=== PATIENT | female | born 1950 | race Caucasian/White ===

== ENCOUNTER → 2023-05-01 10:23 | Outpatient (REF) | payer MEDICARE, SELFPAY ==
[2023-05-01 11:35] LABS: % Basophils 0.6 % (0-2); % Eosinophils 4.3 % (0-6); % Immature Granulocytes 0.3 % (0-0.5); % Lymphocytes 34.1 % (20.5-51.1); % Monocytes 7.6 % (1.7-9.3); % Neutrophils 53.1 % (42.2-75.2); Absolute Basophils 0.1 10^3/uL (0-0.2); Absolute Eosinophils 0.4 10^3/uL (0-0.7); Absolute Lymphocytes 3.4 10^3/uL (1.2-3.4); Absolute Monocytes 0.8 10^3/uL (0.1-0.6); Absolute Neutrophils 5.3 10^3/uL (1.4-6.5); Hematocrit 41.3 % (37.0-47.0); Hemoglobin 13.3 g/dL (12.0-16.0); Mean Corp Hgb Conc. 32.2 g/dL (33.0-37.0); Mean Corpuscular Hgb 27.2 pg (27.0-31.0); Mean Corpuscular Volume 84.5 fL (81.0-99.0); Mean Platelet Volume 9.6 fL (7.4-10.4); Nucleated Red Blood Cells % 0 %; Platelet Count 326 10^3/uL (130-400); Red Blood Cell Count 4.89 10^6/uL (4.20-5.40); Red Cell Dist. Width 14.2 % (11.5-14.5)
[2023-05-01 12:21] LABS: TSH Reflex To Free T4 0.84 uIU/ml (0.47-4.68)
[2023-05-01 12:29] LABS: Glycohemoglobin (HgbA1c) 5.8 % (4.0-5.6)
[2023-05-01 12:39] LABS: ALT (SGPT) 15 U/L (0-35); AST (SGOT) 18 U/L (14-36); Albumin 4.1 g/dl (3.5-5.0); Alkaline Phosphatase 106 U/L (38-126); Blood Urea Nitrogen 17 mg/dl (7-17); Calcium 9.7 mg/dl (8.4-10.2); Carbon Dioxide 24 mmol/L (22-30); Chloride 105 mmol/L (98-107); Glucose 83 mg/dl (70-99); HDL Cholesterol 46 mg/dl; LDL Cholesterol, Calculated 63 mg/dl; Potassium 4.8 mmol/L (3.5-5.1); Sodium 137 mmol/L (135-145); Total Bilirubin 0.5 mg/dl (0.2-1.3); Total Cholesterol 153 mg/dl (50-199); Total Protein 6.5 g/dl (6.3-8.2); Triglyceride 221 mg/dl (10-149); Very Low Density Lipoprotein 44 mg/dl (0-30); eGFR > 60.00
[2023-05-01 15:27] LABS: Vitamin B12 304 pg/ml (239-931)
[2023-05-02 11:07] LABS: Intact PTH 71.9 pg/ml (13.6-85.8)
== END ==
LOC: REG 10:23
PROVIDERS: ATTENDING PHYSICIAN Student in an Organized Health Care Education/Training Program
DX: Z00.00 Encounter for general adult medical examination without abnormal findings (principal); E66.01 Morbid (severe) obesity due to excess calories; Z85.3 Personal history of malignant neoplasm of breast; R73.03 Prediabetes; M81.0 Age-related osteoporosis without current pathological fracture; E78.2 Mixed hyperlipidemia; Z98.890 Other specified postprocedural states
CPT/HCPCS: 36415; 80053; 80061; 82570; 82607; 83036; 83970; 84443; 85025

== ENCOUNTER 2023-05-22 17:01 | Observation (INO) | payer MEDICARE, SELFPAY ==
[2023-05-22 13:11] VITALS: BP 139/88
[2023-05-22] MEDS: TORADOL 30 MG IM (14:17)
[2023-05-22 15:20] LABS: % Basophils 0.4 % (0-2); % Immature Granulocytes 0.6 % (0-0.5); % Lymphocytes 32.4 % (20.5-51.1); % Neutrophils 57.6 % (42.2-75.2); Absolute Basophils 0.1 10^3/uL (0-0.2); Absolute Eosinophils 0.4 10^3/uL (0-0.7); Absolute Immature Granulocytes 0.1 10^3/uL (0-0.05); Absolute Lymphocytes 4.5 10^3/uL (1.2-3.4); Absolute Monocytes 0.8 10^3/uL (0.1-0.6); Absolute Neutrophils 7.9 10^3/uL (1.4-6.5); Hematocrit 44.6 % (37.0-47.0); Hemoglobin 14.4 g/dL (12.0-16.0); Mean Corp Hgb Conc. 32.3 g/dL (33.0-37.0); Mean Corpuscular Hgb 27.4 pg (27.0-31.0); Mean Corpuscular Volume 84.8 fL (81.0-99.0); Mean Platelet Volume 9.6 fL (7.4-10.4); Nucleated Red Blood Cells % 0 %; Platelet Count 319 10^3/uL (130-400); Red Blood Cell Count 5.26 10^6/uL (4.20-5.40); Red Cell Dist. Width 14.2 % (11.5-14.5); White Blood Cell Count 13.8 10^3/uL (4.8-10.8)
[2023-05-22 15:38] LABS: ALT (SGPT) 16 U/L (0-35); AST (SGOT) 21 U/L (14-36); Albumin 4.4 g/dl (3.5-5.0); Alkaline Phosphatase 118 U/L (38-126); Blood Urea Nitrogen 16 mg/dl (7-17); Calcium 10.3 mg/dl (8.4-10.2); Carbon Dioxide 26 mmol/L (22-30); Chloride 103 mmol/L (98-107); Glucose 86 mg/dl (70-99); Potassium 4.7 mmol/L (3.5-5.1); Sodium 136 mmol/L (135-145); Total Bilirubin 0.6 mg/dl (0.2-1.3); Total Protein 7.3 g/dl (6.3-8.2); eGFR > 60.00
[2023-05-22] MEDS: ULTRAM 50 MG PO (15:53)
[2023-05-22] MEDS: TYLENOL 1000 MG PO (15:54)
--- NOTE | 2023-05-22 16:02 | ED.GENMED ---
History of Present Illness
General
Chief Complaint: Musculo-Skeletal Complaint
Time Seen by Provider: 05/22/23 13:22
Travel History
Have you had any contact with someone who has COVID-19?: No
Do you have any symptoms of coronavirus? Fever > 100 degrees, chills, cough, shortness of breath, sore throat, loss of taste or smell, muscle aches, or headache?: No
History of Present Illness
History of Present Illness:
72-year-old female with history of hypertension, lch-pfonmih-upztubkvy diabetes, and GERD presents the emergency department for evaluation of severe left knee pain after physical therapy yesterday. She has known severe arthritis and has been
advised by her orthopedist that she should undergo a knee replacement. Did receive a intra-articular cortisone injection last month with some improvement. States pain was quite severe during PT yesterday and today she has not been able to bear
weight. She takes Tylenol and ibuprofen intermittently for pain. Typically utilizes a walker but cannot stand even with this
Review of Systems
Review of Systems
Allergies reviewed?: Yes
All Other Systems: ROS reviewed and negative except as documented in HPI and ROS
Phy Exam
Physical Exam
Physical Exam:
GEN: Well appearing, NAD, WDWN
HEENT: Oral mucosa moist, no scleral icterus
Cardiac: Regular rate
Lung: No respiratory distress, no tachypnea
MSK: Severe swelling and valgus deformity of the left knee, extension is limited to 15 degrees secondary to pain, flexion is normal. No obvious erythema or open wounds
Skin: Good color, no pallor or jaundice, no rashes
Neuro: AO x3, moves all extremities freely
Psych: Calm, cooperative
Course
Orders/Labs/Results
Orders:
Orders
05/22/23 13:15
CR Knee - Left 4 Or More View* Urgent
Comment:
Reason For Exam: pain
05/22/23 14:08
Ketorolac [Toradol] 30 mg IM NOW STA
Pt Eval And Treat Urgent
Activity Level: As Tolerated
05/22/23 15:08
Complete Blood Count/With Diff Urgent
Comprehensive Metabolic Panel Urgent
05/22/23 15:48
Acetaminophen [Tylenol] 1,000 mg PO NOW STA
Tramadol HCl [Ultram] 50 mg PO NOW STA
05/22/23 16:18
Admit/Transfer Patient As Directed
Co-Sign Provider:
Level of Care: Observation services
Assign to:: Medical/Surgical
Physician / Group: nanette
Diagnosis: osteoarthritis
05/22/23 16:19
Code Status As Directed
Resuscitation Status: Do not resuscitate
Reached after discussion with pt or family/Healthcare POA: Yes
DNR Bracelet Application ONCE
Abnormal Lab Results
05/22/23
15:08
WBC 13.8 H 10^3/uL
(4.8-10.8)
MCHC 32.3 L g/dL
(33.0-37.0)
Abs Immat Gran (auto) 0.1 H 10^3/uL
(0-0.05)
Absolute Neuts (auto) 7.9 H 10^3/uL
(1.4-6.5)
Absolute Lymphs (auto) 4.5 H 10^3/uL
(1.2-3.4)
Absolute Monos (auto) 0.8 H 10^3/uL
(0.1-0.6)
Immature Gran % 0.6 H %
(0-0.5)
Creatinine 0.5 L mg/dL
(0.6-1.0)
Calcium 10.3 H mg/dl
(8.4-10.2)
05/22/23 15:08
05/22/23 15:08
Vital Signs
Initial and Last Documented VS:
Initial Vital Signs
Pulse Resp BP Pulse Ox
77 20 139/88 98
05/22/23 13:11 05/22/23 13:11 05/22/23 13:11 05/22/23 13:11
Last Documented Vital Signs
Pulse Resp BP Pulse Ox
77 20 139/88 98
05/22/23 13:11 05/22/23 13:11 05/22/23 13:11 05/22/23 13:11
MDM/Problems Addressed
MDM/Problems Addressed:
X-rays left knee independently interpreted by me show no evidence for acute osseous abnormality, there is severe degenerative change throughout all 3 compartments. Even with anti-inflammatory ministration the patient is not able to tolerate the
pain and ambulate under her own power. I am hesitant to discharge her on a course of opioids given that she lives alone, will admit for rehab considerations and pain control
*Critical Care Note
Total Time (30-74mins, 75-104mins- exclusive of procedures): Not Applicable
ED Attending Note
-
Portions of this chart may have been created with voice recognition software.� Occasional wrong word or��sound alike� substitutions may have occurred due to the inherent limitations of voice recognition software.
Discharge Plan
Departure
Patient Disposition: Admit
Date of Disposition: 05/22/23
Time of Disposition: 16:02
Admit to: Med/Surg
Presentation/result/management discussed w/ accepting MD/DO: Hospitalist
Discharge Problem:
Arthritis of knee, left, Ambulatory dysfunction
Interventions
Interventions:
*Risk Screen - Suicide Last Done: 05/22/23 13:11
*General Assessment Last Done: 05/22/23 13:11
*Neglect/Abuse Screening Last Done: 05/22/23 13:11
ED- Fall Risk Assessment Last Done: 05/22/23 14:24
*ED COVID-19 Vaccine History Last Done: 05/22/23 14:20
ED-Musculoskeletal Assessment Last Done: 05/22/23 14:46
--- NOTE | 2023-05-22 16:21 | HPS.HSE ---
Family Physician
-
Family Physician: Gifty Layne DO
Chief Complaint
-
severe knee pain
History of Present Illness
72-year-old female past medical history of osteoarthritis, osteoporosis, hypertension, hyperlipidemia, obesity, breast cancer, prediabetes, overactive bladder, anxiety/depression presenting with severe left knee pain after attending physical therapy
yesterday and performing extension exercises with her legs. Pain started this morning and is worse than her chronic left knee pain. Pain is primarily on the anterior part of the knee as well as posterior knee with radiation above the knee and
below the knee. She was unable to bear weight and stand today.
Patient has history of arthritis and was seeing for evaluation for knee replacement and he recommended physical therapy which she attended yesterday. She normally only takes Tylenol for pain
Patient with alcohol occasionally. She denies smoking.
Medical History
Past Medical History
Past Medical History: Reports Other (osteoarthritis, osteoporosis, hypertension, hyperlipidemia, obesity, breast cancer, prediabetes, overactive bladder, anxiety/depression)
Past Surgical History: Reports Other (Carpal tunnel surgery right hand, umbilical hernia repair, right knee arthroscopy, parathyroidectomy, thyroid surgery, lumpectomy,)
Social History
Tobacco: Non-smoker
Alcohol: Occasional
Drug: None
Family History
Family History: Not pertinent
Allergies / Home Medications
Allergies reflects when Allergies were last updated in [employer].
Home Medications with original date entered in [employer]
Allergy/Medication List:
Allergies
Allergy/AdvReac Type Severity Reaction Status Date / Time
amoxicillin Allergy Unknown Verified 05/22/23 13:11
Cephalosporins Allergy Unknown Verified 05/22/23 13:11
Penicillins Allergy Unknown Verified 05/22/23 13:11
Home Medications
acetaminophen 650 mg tablet,extended release 1,300 mg PO BID 05/22/23
alirocumab 75 mg/mL subcutaneous pen injector (Praluent Pen) 75 mg SC Q2W 05/22/23
cholecalciferol (vitamin D3) 25 mcg (1,000 unit) tablet (Vitamin D3) 25 mcg PO DAILY 05/22/23
ezetimibe 10 mg tablet 10 mg PO HS 05/22/23
ibuprofen 200 mg tablet 400 mg PO NOON 05/22/23
letrozole 2.5 mg tablet 2.5 mg PO HS 05/22/23
losartan 50 mg tablet 50 mg PO HS 05/22/23
omeprazole 20 mg capsule,delayed release 20 mg PO DAILY 05/22/23
sertraline 50 mg tablet 50 mg PO HS 05/22/23
vibegron 75 mg tablet (Gemtesa) 75 mg PO NOON 05/22/23
Review of Systems
-
History Source: Patient
A 12 point ROS was completed and negative except as noted: Yes
Constitutional: Reports No Symptoms
EENT: Reports No Symptoms
Respiratory: Reports No Symptoms
Cardiac: Reports No Symptoms
Abdomen/GI: Reports No Symptoms
: Reports No Symptoms
Musculoskeletal: Reports See HPI
Skin: Reports No Symptoms
Neurological: Reports No Symptoms
Endocrine: Reports No Symptoms
Hematologic/Lymphatic: Reports No Symptoms
Psych: Reports No Symptoms
Physical Exam
Vital Signs
Vital Signs
Pulse Resp BP Pulse Ox
77 20 139/88 98
05/22/23 13:11 05/22/23 13:11 05/22/23 13:11 05/22/23 13:11
Physical Exam
General: Well Developed, Well Nourished and No Apparent Distress
HEENT: NormoCephalic, Moist mucous membranes and Atraumatic
Respiratory: Clear
Cardiac: S1/S2 and Regular Rhythm; No Murmur or Rub
GI: Soft, Non Tender, Non Distended and Normal Bowel Sounds; No Organomegaly
Rectal: Deferred by Provider
Musculoskeletal: No Clubbing, No Cyanosis, No Edema and Other (left knee swelling, anterior and posterior tenderness )
Skin: No Rash
Neuro: Nonfocal/grossly intact
Laboratory Results
-
05/22/23 15:08
05/22/23 15:08
Laboratory Results
Total Bilirubin 0.6 mg/dl (0.2-1.3) 05/22/23 15:08
AST 21 U/L (14-36) 05/22/23 15:08
ALT 16 U/L (0-35) 05/22/23 15:08
Alkaline Phosphatase 118 U/L (38-126) 05/22/23 15:08
Data Reviewed
-
Lab Data: Labs Reviewed by me
Old Records: Reviewed
Impression/Plan
-
IMPRESSION:
PLAN:
# Severe left knee pain secondary to arthritis, possible meniscal tear
-Patient has tenderness over the lateral joint line and pain with extension of the knee concerning for meniscal tear
-Knee x-ray shows small suprapatellar joint effusion, moderate degenerative changes, small osteochondroma of the distal femur
-Check MRI of knee
-Continue Tylenol, ibuprofen, tramadol
-PT/OT
Osteoporosis
Essential hypertension
-Continue losartan
Hyperlipidemia
-Continue Zetia
Obesity
History of breast cancer
-Continue letrozole
Prediabetes
Overactive bladder
-Continue Gemtesa
Anxiety/depression
-Continue sertraline
GERD
-Continue omeprazole
DNR/DNI
DVT prophylaxis�SCDs
Regular
[2023-05-22 17:45] VITALS: BP 148/78; BMI 45.8
[2023-05-22] MEDS: ZETIA 10 MG PO (21:02)
[2023-05-22] MEDS: COZAAR 50 MG PO (21:02)
[2023-05-22] MEDS: FEMARA 2.5 MG PO (21:03)
[2023-05-22] MEDS: ZOLOFT 50 MG PO (21:03)
[2023-05-22] MEDS: MOTRIN 400 MG PO (21:28)
[2023-05-22 23:00] VITALS: BP 137/70
[2023-05-23] MEDS: TYLENOL 650 MG PO (06:22)
[2023-05-23 07:08] VITALS: BP 143/72
[2023-05-23 07:32] LABS: % Basophils 0.7 % (0-2); % Eosinophils 6.8 % (0-6); % Immature Granulocytes 0.5 % (0-0.5); % Lymphocytes 30.2 % (20.5-51.1); % Monocytes 7.6 % (1.7-9.3); % Neutrophils 54.2 % (42.2-75.2); Absolute Basophils 0.1 10^3/uL (0-0.2); Absolute Eosinophils 0.7 10^3/uL (0-0.7); Absolute Immature Granulocytes 0.1 10^3/uL (0-0.05); Absolute Lymphocytes 3.1 10^3/uL (1.2-3.4); Absolute Monocytes 0.8 10^3/uL (0.1-0.6); Absolute Neutrophils 5.5 10^3/uL (1.4-6.5); Hematocrit 40.4 % (37.0-47.0); Hemoglobin 13.3 g/dL (12.0-16.0); Mean Corp Hgb Conc. 32.9 g/dL (33.0-37.0); Mean Corpuscular Hgb 27.6 pg (27.0-31.0); Mean Corpuscular Volume 83.8 fL (81.0-99.0); Mean Platelet Volume 9.7 fL (7.4-10.4); Nucleated Red Blood Cells % 0 %; Platelet Count 262 10^3/uL (130-400); Red Blood Cell Count 4.82 10^6/uL (4.20-5.40); Red Cell Dist. Width 14.2 % (11.5-14.5); White Blood Cell Count 10.2 10^3/uL (4.8-10.8)
[2023-05-23 07:50] LABS: ALT (SGPT) 14 U/L (0-35); AST (SGOT) 19 U/L (14-36); Albumin 3.5 g/dl (3.5-5.0); Alkaline Phosphatase 89 U/L (38-126); Blood Urea Nitrogen 17 mg/dl (7-17); Calcium 9.7 mg/dl (8.4-10.2); Carbon Dioxide 27 mmol/L (22-30); Chloride 104 mmol/L (98-107); Estimated Creatinine Clearance 99 ml/min; Glucose 91 mg/dl (70-99); Potassium 4.3 mmol/L (3.5-5.1); Sodium 137 mmol/L (135-145); Total Bilirubin 0.7 mg/dl (0.2-1.3); eGFR > 60.00
[2023-05-23 08:08] VITALS: BP 143/72
--- NOTE | 2023-05-23 10:23 | W.PN.HOSP.TC ---
Addendum entered and electronically signed by Rivas Ramos MD 05/23/23 13:49:
� SEVERE OSTEOARTHRITIS in the LATERAL COMPARTMENT of the LEFT KNEE with severe full-thickness cartilage wear, severe joint space loss, and large osteophytes.
2. � COMPLEX TEAR of the LATERAL MENISCUS with extrusion of the meniscal body containing a 1.5 cm complex parameniscal cyst surrounded by severe soft tissue edema.
3. � Multiple ossific bodies lateral and anterior to the lateral compartment joint space.
4. � Moderate to severe cartilage wear in the patellofemoral compartment.
5. � Horizontal tear of the body of the medial meniscus.
6. � Moderate-sized joint effusion containing severe synovitis.
7. � 5.9 cm complex Jimenes's cyst.
8. � Moderate to severe para-articular muscle atrophy.
With continued inability to weight-bear and on clear weightbearing status will get orthopedic consultation related to above with Karri
Original Note:
Today's Communication/Plan
-
For MRI today will need to have PT OT eval also based on results may have to get orthopedic input
Continue pain management with analgesics and anti-inflammatories
Assessment / Plan
Assessment / Plan
2-year-old female past medical history of osteoarthritis, osteoporosis, hypertension, hyperlipidemia, obesity, breast cancer, prediabetes, overactive bladder, anxiety/depression presenting with severe left knee pain after attending physical therapy
yesterday and performing extension exercises with her legs.� Pain started this morning and is worse than her chronic left knee pain.� Pain is primarily on the anterior part of the knee as well as posterior knee with radiation above the knee and
below the knee.� She was unable to bear weight and stand today.
Patient has history of arthritis and was seeing for evaluation for knee replacement and he recommended physical therapy which she attended yesterday.� She normally only takes Tylenol for pain
Patient with alcohol occasionally.� She denies smoking.
# Severe left knee pain secondary to arthritis, possible meniscal tear
-Patient has tenderness over the lateral joint line and pain with extension of the knee concerning for meniscal tear
-Knee x-ray shows small suprapatellar joint effusion, moderate degenerative changes, small osteochondroma of the distal femur
-Check MRI of knee
-Continue Tylenol, ibuprofen, tramadol
-PT/OT
Osteoporosis
Essential hypertension
-Continue losartan
Hyperlipidemia
-Continue Zetia
Obesity
History of breast cancer
-Continue letrozole
Prediabetes
Overactive bladder
-Continue Gemtesa
Anxiety/depression
-Continue sertraline
GERD
-Continue omeprazole
DNR/DNI
DVT prophylaxis�SCDs
Regular
Anticipated Discharge: 24 - 48 hours
Subjective/Interval History
-
Date of Service: May 23, 2023
No complaints other than ongoing left knee pain unable ambulate
Objective Data
-
Labs:
Laboratory Results
05/23/23
06:58
WBC 10.2
Hgb 13.3
Hct 40.4
Plt Count 262
Sodium 137
Potassium 4.3
Chloride 104
Carbon Dioxide 27
BUN 17
Creatinine 0.5 L
Glucose 91
Calcium 9.7
Total Bilirubin 0.7
AST 19
ALT 14
Alkaline Phosphatase 89
Vital Signs:
Vital Signs
Temp Pulse Resp BP Pulse Ox
97.6 F 71 18 143/72 96
05/23/23 07:08 05/23/23 07:08 05/23/23 07:08 05/23/23 07:08 05/23/23 07:08
I&O
05/22/23 05/23/23 05/24/23
06:59 06:59 06:59
Intake Total 420 / 420
Balance 420 / 420
Review of Systems
-
All other systems: Not reviewed unless documented
Constitutional: Reports No Symptoms
EENT: Reports No Symptoms Reported
Respiratory: Reports No Symptoms
Musculoskeletal: Reports Joint Pain (Left knee) and Joint Swelling
Physical Exam
-
General: Well Developed
HEENT: Normocephalic
Respiratory: Clear to Auscultation
Cardiac: Regular Rhythm
Breast: Deferred by me
GI: Soft
Musculoskeletal: Edema, Left Lower Extrem (Prepatellar anterior and posterior tenderness and swelling)
Neuro: Awake, Alert and Oriented
Data Reviewed
-
Total Time Spent with Patient (in minutes): 45
Diagnostic Radiology: Report Reviewed by me (Reviewed x-ray left knee/noted small suprapatellar joint effusion no osseous injury otherwise moderate degenerative change)
Labs: Labs Reviewed by me
[2023-05-23] MEDS: VITAMIN D3 (cholecalciferol) 25 MCG PO (10:56)
[2023-05-23] MEDS: PROTONIX 40 MG PO (10:56)
[2023-05-23] MEDS: ULTRAM 50 MG PO ×2 (10:57→21:21)
[2023-05-23] MEDS: DETROL LA 4 MG PO (11:20)
[2023-05-23 11:59] VITALS: BP 145/65; PULSE 78; O2SAT 99
[2023-05-23 12:48] VITALS: BP 145/65; PULSE 78; O2SAT 99
[2023-05-23 14:30] VITALS: BP 137/61
[2023-05-23] MEDS: MOTRIN 400 MG PO (15:14)
--- NOTE | 2023-05-23 17:31 | CM ---
Alert awake oriented patient who lives at [facility]. She is independent in activities of daily living.Pt uses walker rollator. She beleives she needs rehab at [facility].Will need PT OT evals and auth.LAO letter given explained she declined to sign
letter Copy on chart.
No SNF/VN hx
Pharmacy [facility] keys
PCP Dr Layne
PLAN Will depend on PT OT evls
[2023-05-23] MEDS: FEMARA 2.5 MG PO (21:20)
[2023-05-23] MEDS: ZOLOFT 50 MG PO (21:20)
[2023-05-23] MEDS: COZAAR 50 MG PO (21:20)
[2023-05-23] MEDS: ZETIA 10 MG PO (21:21)
[2023-05-23] MEDS: DESENEX/MITRAZOL/ZEASORB 1 APPLIC TOPICAL (21:21)
[2023-05-23 23:51] VITALS: BP 119/64
[2023-05-24] MEDS: MOTRIN 400 MG PO (06:19)
[2023-05-24 07:20] VITALS: BP 122/59
[2023-05-24] MEDS: VITAMIN D3 (cholecalciferol) 25 MCG PO (08:36)
[2023-05-24] MEDS: PROTONIX 40 MG PO (08:36)
[2023-05-24] MEDS: DESENEX/MITRAZOL/ZEASORB 1 APPLIC TOPICAL ×2 (08:37→20:17)
--- NOTE | 2023-05-24 10:29 | W.PN.HOSP.TC ---
Today's Communication/Plan
-
Once patient has a rehab facility available to her she can go she is medically stable
Orthopedic opinion needs to weight-bear as tolerated and PT with eventual transition for knee replacement
Assessment / Plan
Assessment / Plan
2-year-old female past medical history of osteoarthritis, osteoporosis, hypertension, hyperlipidemia, obesity, breast cancer, prediabetes, overactive bladder, anxiety/depression presenting with severe left knee pain after attending physical therapy
yesterday and performing extension exercises with her legs.� Pain started this morning and is worse than her chronic left knee pain.� Pain is primarily on the anterior part of the knee as well as posterior knee with radiation above the knee and
below the knee.� She was unable to bear weight and stand today.
Patient has history of arthritis and was seeing for evaluation for knee replacement and he recommended physical therapy which she attended yesterday.� She normally only takes Tylenol for pain
Patient with alcohol occasionally.� She denies smoking.
# Severe left knee pain secondary to arthritis, and meniscal tear
-Patient has tenderness over the lateral joint line and pain with extension of the knee concerning for meniscal tear
-Knee x-ray shows small suprapatellar joint effusion, moderate degenerative changes, small osteochondroma of the distal femur
- MRI of knee:
SEVERE OSTEOARTHRITIS in the LATERAL COMPARTMENT of the LEFT KNEE with severe full-thickness cartilage wear, severe joint space loss, and large osteophytes.
2. � COMPLEX TEAR of the LATERAL MENISCUS with extrusion of the meniscal body containing a 1.5 cm complex parameniscal cyst surrounded by severe soft tissue edema.
3. � Multiple ossific bodies lateral and anterior to the lateral compartment joint space.
4. � Moderate to severe cartilage wear in the patellofemoral compartment.
5. � Horizontal tear of the body of the medial meniscus.
6. � Moderate-sized joint effusion containing severe synovitis.
7. � 5.9 cm complex Jimenes's cyst.
8. � Moderate to severe para-articular muscle atrophy.
-Continue Tylenol, ibuprofen, tramadol
-PT/OT/await orthopedic input and consultation however initial recommendation is for rehab. As bridge to eventual knee replacement has received steroid injection and early March
Osteoporosis
Essential hypertension
-Continue losartan
Hyperlipidemia
-Continue Zetia
Obesity
History of breast cancer
-Continue letrozole
Prediabetes
Overactive bladder
-Continue Gemtesa
Anxiety/depression
-Continue sertraline
GERD
-Continue omeprazole
DNR/DNI
DVT prophylaxis�SCDs
Regular
Anticipated Discharge: Within 24 hours
Subjective/Interval History
-
Date of Service: May 24, 2023
Still unable to weight-bear but was sitting on side of bed with movement eating breakfast will await PT evaluation further awaiting orthopedic input
Objective Data
-
Vital Signs:
Vital Signs
Temp Pulse Resp BP Pulse Ox
97.8 F 68 18 122/59 97
05/24/23 07:20 05/24/23 07:20 05/24/23 07:20 05/24/23 07:20 05/24/23 07:20
I&O
05/23/23 05/24/23 05/25/23
06:59 06:59 06:59
Intake Total 420 / 420 960 / 960
Balance 420 / 420 960 / 960
Review of Systems
-
History Source: Patient
Respiratory: Reports No Symptoms
Musculoskeletal: Reports Muscle Pain, Arthralgias and Muscle Weakness
Physical Exam
-
General: Morbidly Obese
HEENT: Normocephalic
Respiratory: Clear to Auscultation
Cardiac: Regular Rhythm
GI: Soft
Musculoskeletal: Edema, Left Lower Extrem (Knee swelling with some effusion)
Neuro: Awake
Psych: Calm
Data Reviewed
-
Total Time Spent with Patient (in minutes): 45
Labs: Labs Reviewed by me
[2023-05-24] MEDS: DETROL LA 4 MG PO (11:17)
[2023-05-24] MEDS: TYLENOL 650 MG PO ×2 (11:19→21:41)
--- NOTE | 2023-05-24 11:44 | CON.ORTHO ---
Consultation
-
Date/Time Consultation Requested: 05/23/2023
Date/Time Consultation Performed: 1130 05/24/2023
Requesting Provider: Primary
Performing Provider: Arianna
Reason for Consultation: Left knee pain
Consultation - Orthopedics
History
HPI: 72-year-old female history of obesity significant left knee DJD presented to the [place] emergency department with complaints of left knee pain and inability to bear weight. She was subsequently admitted to the hospitalist service for
ambulatory dysfunction. Orthopedics was consulted for further evaluation and treatment. She is followed on outpatient basis by Dr. Santos. She has been told outpatient basis that she is not currently a candidate for total knee arthroplasty given
her BMI. She recently underwent corticosteroid injection in March and was given referral for physical therapy. She reports that at physical therapy on Thursday she experienced significant worsening of symptoms following a leg strengthening
exercise. This prompted her evaluation in the emergency department. This morning patient is complaining of lateral based left knee pain. Symptoms made worse with palpation affected area with any attempted ambulation. She does have specific
questions today regarding logistics of her potential total knee arthroplasty. She does state that Dr. Santos advised her that she would need to lose approximately 25 pounds before she would be a candidate. Denies any fevers or chills. Denies any
trauma.
Allergies / Home Medications
Past medical history: Obesity,, breast cancer, hypertension, hyperlipidemia, anxiety depression
Past surgical history: Carpal tunnel, knee arthroscopy, lumpectomy, hernia repair
Family history: Not pertinent
Social history: Lives at an independent living facility, non-smoker
Allergy/AdvReac Type Severity Reaction Status Date / Time
amoxicillin Allergy Unknown Verified 05/22/23 13:11
Cephalosporins Allergy Unknown Verified 05/22/23 13:11
Penicillins Allergy Unknown Verified 05/22/23 13:11
Medication Instructions Recorded
acetaminophen 650 mg 1,300 mg PO BID Pain 05/22/23
tablet,extended release
alirocumab 75 mg/mL subcutaneous 75 mg SC Q2W Autoimmune Disorder 05/22/23
pen injector (Praluent Pen)
cholecalciferol (vitamin D3) 25 25 mcg PO DAILY Supplement 05/22/23
mcg (1,000 unit) tablet (Vitamin
D3)
ezetimibe 10 mg tablet 10 mg PO HS High Cholesterol 05/22/23
ibuprofen 200 mg tablet 400 mg PO NOON Pain 05/22/23
letrozole 2.5 mg tablet 2.5 mg PO HS Cancer 05/22/23
losartan 50 mg tablet 50 mg PO HS Blood Pressure 05/22/23
omeprazole 20 mg capsule,delayed 20 mg PO DAILY GERD 05/22/23
release
sertraline 50 mg tablet 50 mg PO HS Mental Health/Anxiety 05/22/23
vibegron 75 mg tablet (Gemtesa) 75 mg PO NOON OVERACTIVE BLADDER 05/22/23
Vital Signs / Lab Results
Temp Pulse Resp BP Pulse Ox
97.8 F 68 18 122/59 97
05/24/23 07:20 05/24/23 07:20 05/24/23 07:20 05/24/23 07:20 05/24/23 07:20
05/23/23 06:58
05/23/23 06:58
10 point review systems reviewed and negative unless otherwise stated
General: Pleasant, no acute distress
Musculoskeletal left lower extremity
Skin intact, no erythema, no ecchymosis
No palpable warmth
There is palpable knee effusion
Palpable crepitation with knee flexion extension
Knee range of motion just of complete extension to approximately 90 degrees limited by pain
Genu valgum deformity
Significant tense palpation over lateral joint line
Minimal tenderness palpation over medial joint line
Distal motor and sensation at baseline
Diagnostic studies
X-rays left knee MRI left knee independently reviewed by myself. MRI does show expected significant chondral loss lateral compartment with medial lateral meniscus tear with noted extrusion laterally. There is multiple loose bodies noted with
significant synovitis. No evidence of significant subchondral insufficiency fracture or stress fracture. There is noted to be some subchondral edema.
Assessment / Plan
72-year-old female history of obesity with acute exacerbation of pre-existing left knee osteoarthritis. I did explain to the patient in detail the findings of the MRI are expected in somebody with significant knee osteoarthritis. She did have
specific questions regarding logistics of obtaining a total knee arthroplasty. For the time being I would recommend pain control, anti-inflammatory medications as well as ambulation and physical therapy. I explained to her that there are no acute
recommendations for intervention from an orthopedic standpoint. I would recommend that she follow-up with Dr. Santos on outpatient basis as she has an established relationship with him to discuss any potential total knee arthroplasty although I do
suspect that she would likely need to continue to lose weight before she be a candidate. We did discuss bracing as an option as well. Certainly she could trial a hinged knee brace that might provide her with a increase sensation of stability given
her significant pain and inability to bear weight. She does report that she recently underwent a corticosteroid injection in March and would be too soon to consider repeat injection at this time.
Weightbearing as tolerated left lower extremity
PT OT
Pain control/anti-inflammatory medications
DVT prophylaxis per primary team
Medical management per primary team
Follow-up with Dr. Santos on outpatient basis upon discharge.
[2023-05-24 11:47] VITALS: BP 121/53
[2023-05-24 15:36] VITALS: BP 137/67
[2023-05-24] MEDS: HYDROCORTISONE 1% LOTION 1 APPLIC TOPICAL (20:17)
[2023-05-24] MEDS: COZAAR 50 MG PO (21:40)
[2023-05-24] MEDS: FEMARA 2.5 MG PO (21:41)
[2023-05-24] MEDS: ZOLOFT 50 MG PO (21:41)
[2023-05-24] MEDS: ZETIA 10 MG PO (21:41)
[2023-05-24 23:22] VITALS: BP 134/73
[2023-05-24] MEDS: ULTRAM 50 MG PO (23:30)
[2023-05-25] MEDS: MOTRIN 400 MG PO ×2 (03:28→15:04)
[2023-05-25 07:20] VITALS: BP 135/79
[2023-05-25] MEDS: HYDROCORTISONE 1% LOTION 1 APPLIC TOPICAL ×2 (09:09→22:18)
[2023-05-25] MEDS: PROTONIX 40 MG PO (09:10)
[2023-05-25] MEDS: DESENEX/MITRAZOL/ZEASORB 1 APPLIC TOPICAL ×2 (09:10→22:17)
[2023-05-25] MEDS: VITAMIN D3 (cholecalciferol) 25 MCG PO (09:10)
[2023-05-25] MEDS: MILK OF MAGNESIA 30 ML PO (09:28)
[2023-05-25] MEDS: MIRALAX 17 GRAMS PO (09:28)
[2023-05-25] MEDS: TYLENOL 650 MG PO (09:28)
[2023-05-25] MEDS: DETROL LA 4 MG PO (11:24)
[2023-05-25 11:35] VITALS: BP 127/88; BP 134/81; PULSE 77; O2SAT 96
--- NOTE | 2023-05-25 11:51 | W.PN.HOSP.TC ---
Today's Communication/Plan
-
await placement
bowel regimen
Assessment / Plan
Assessment / Plan
72-year-old female past medical history of osteoarthritis, osteoporosis, hypertension, hyperlipidemia, obesity, breast cancer, prediabetes, overactive bladder, anxiety/depression presenting with severe left knee pain after attending physical therapy
yesterday and performing extension exercises with her legs.� Pain started this morning and is worse than her chronic left knee pain.� Pain is primarily on the anterior part of the knee as well as posterior knee with radiation above the knee and
below the knee.� She was unable to bear weight and stand today.
Patient has history of arthritis and was seeing for evaluation for knee replacement and he recommended physical therapy which she attended yesterday.� She normally only takes Tylenol for pain
Patient with alcohol occasionally.� She denies smoking.
MRI of knee:
SEVERE OSTEOARTHRITIS in the LATERAL COMPARTMENT of the LEFT KNEE with severe full-thickness cartilage wear, severe joint space loss, and large osteophytes.
2. � COMPLEX TEAR of the LATERAL MENISCUS with extrusion of the meniscal body containing a 1.5 cm complex parameniscal cyst surrounded by severe soft tissue edema.
3. � Multiple ossific bodies lateral and anterior to the lateral compartment joint space.
4. � Moderate to severe cartilage wear in the patellofemoral compartment.
5. � Horizontal tear of the body of the medial meniscus.
6. � Moderate-sized joint effusion containing severe synovitis.
7. � 5.9 cm complex Jimenes's cyst.
8. � Moderate to severe para-articular muscle atrophy.
# Severe left knee pain secondary to arthritis, and meniscal tear
-Patient has tenderness over the lateral joint line and pain with extension of the knee concerning for meniscal tear
-Knee x-ray shows small suprapatellar joint effusion, moderate degenerative changes, small osteochondroma of the distal femur
-Continue Tylenol, ibuprofen, tramadol
-Brace ordered
-PT/OT
-appreciate ortho recs. No acute surgical intervention required.
#Constipation
-bowel regimen added
Osteoporosis
Essential hypertension
-Continue losartan. BP controlled 135/79
Hyperlipidemia
-Continue Zetia
Obesity
History of breast cancer
-Continue letrozole
Prediabetes
Overactive bladder
-Continue Gemtesa
Anxiety/depression
-Continue sertraline
GERD
-Continue omeprazole
DNR/DNI
DVT prophylaxis�SCDs/lovenox
Anticipated Discharge: Today
Subjective/Interval History
-
Date of Service: May 25, 2023
states of improvement in left knee pain
tolerating diet
per RN- no bm since last week
no abd pain or nausea or vomiting
passing flatulence
Objective Data
-
Vital Signs:
Vital Signs
Temp Pulse Resp BP Pulse Ox
97.9 F 76 20 135/79 97
05/25/23 07:20 05/25/23 07:20 05/25/23 07:20 05/25/23 07:20 05/25/23 09:57
I&O
05/24/23 05/25/23 05/26/23
06:59 06:59 06:59
Intake Total 960 / 960 720 / 720
Balance 960 / 960 720 / 720
Physical Exam
-
General: Well Developed and No Apparent Distress
HEENT: Normocephalic, Atraumatic and Moist Mucous Membranes
Respiratory: Clear to Auscultation
Cardiac: Regular Rhythm and S1/S2; Negative Murmur, Rub or Gallop
GI: Soft, Nontender, Nondistended and Normal Bowel Sounds; Negative Organomegaly
Rectal: Deferred by Provider
Musculoskeletal: No Clubbing, No Cyanosis and No Edema
Skin: Negative Rash
Neuro: Awake, Alert, Oriented, AO x 3, No Motor Deficits and Nonfocal/Grossly Intact
Psych: Calm
[2023-05-25 15:15] VITALS: BP 146/70
[2023-05-25] MEDS: TYLENOL 1000 MG PO ×2 (16:11→22:14)
[2023-05-25] MEDS: LOVENOX 40 MG SC (17:43)
[2023-05-25] MEDS: COZAAR 50 MG PO (22:11)
[2023-05-25] MEDS: FEMARA 2.5 MG PO (22:14)
[2023-05-25] MEDS: ZOLOFT 50 MG PO (22:15)
[2023-05-25] MEDS: ZETIA 10 MG PO (22:15)
[2023-05-25 23:33] VITALS: BP 128/64
[2023-05-26] MEDS: ULTRAM 50 MG PO ×2 (00:03→12:48)
[2023-05-26] MEDS: LOVENOX 40 MG SC (06:30)
[2023-05-26 07:10] VITALS: BP 126/66
[2023-05-26] MEDS: PROTONIX 40 MG PO (09:55)
[2023-05-26] MEDS: TYLENOL 1000 MG PO (09:55)
[2023-05-26] MEDS: VITAMIN D3 (cholecalciferol) 25 MCG PO (09:55)
[2023-05-26] MEDS: MIRALAX PO (09:56)
--- NOTE | 2023-05-26 09:58 | W.PN.HOSP.TC ---
Addendum entered and electronically signed by Lyndon Fragoso MD 05/26/23 13:47:
Dictated in error. Patient blood pressure was 126/66 earlier this am.
Original Note:
Today's Communication/Plan
-
dc to SNF
Assessment / Plan
Assessment / Plan
72-year-old female past medical history of osteoarthritis, osteoporosis, hypertension, hyperlipidemia, obesity, breast cancer, prediabetes, overactive bladder, anxiety/depression presenting with severe left knee pain after attending physical therapy
yesterday and performing extension exercises with her legs.� Pain started this morning and is worse than her chronic left knee pain.� Pain is primarily on the anterior part of the knee as well as posterior knee with radiation above the knee and
below the knee.� She was unable to bear weight and stand today.
Patient has history of arthritis and was seeing for evaluation for knee replacement and he recommended physical therapy which she attended yesterday.� She normally only takes Tylenol for pain
Patient with alcohol occasionally.� She denies smoking.
MRI of knee:
SEVERE OSTEOARTHRITIS in the LATERAL COMPARTMENT of the LEFT KNEE with severe full-thickness cartilage wear, severe joint space loss, and large osteophytes.
2. � COMPLEX TEAR of the LATERAL MENISCUS with extrusion of the meniscal body containing a 1.5 cm complex parameniscal cyst surrounded by severe soft tissue edema.
3. � Multiple ossific bodies lateral and anterior to the lateral compartment joint space.
4. � Moderate to severe cartilage wear in the patellofemoral compartment.
5. � Horizontal tear of the body of the medial meniscus.
6. � Moderate-sized joint effusion containing severe synovitis.
7. � 5.9 cm complex Jimenes's cyst.
8. � Moderate to severe para-articular muscle atrophy.
# Severe left knee pain secondary to arthritis, and meniscal tear
-Patient has tenderness over the lateral joint line and pain with extension of the knee concerning for meniscal tear
-Knee x-ray shows small suprapatellar joint effusion, moderate degenerative changes, small osteochondroma of the distal femur
-Continue Tylenol, ibuprofen, tramadol
-Brace ordered
-PT/OT
-appreciate ortho recs. No acute surgical intervention required. OP ortho eval.
#Constipation
-bowel regimen added
-resolved.
Osteoporosis
Essential hypertension
-Continue losartan. BP controlled 135/79
Hyperlipidemia
-Continue Zetia
Obesity
History of breast cancer
-Continue letrozole
Prediabetes
Overactive bladder
-Continue Gemtesa
Anxiety/depression
-Continue sertraline
GERD
-Continue omeprazole
Morbid obesity due to excess calories
-affecting all aspects of medical care.
-weight loss encouraged.
DNR/DNI
DVT prophylaxis�SCDs/lovenox
More than 30 minutes spent in discharge including
Final examination of the patient
Summarizing hospital stay
Instructions for continuing care to all relevant caregivers
Preparation of discharge records, prescriptions, and referral forms
Total time spent (in minutes): 52
Anticipated Discharge: Today
Subjective/Interval History
-
Date of Service: May 26, 2023
states had bm yesterday
pain is controlled.
tolerating diet
Objective Data
-
Vital Signs:
Vital Signs
Temp Pulse Resp BP Pulse Ox
97.8 F 62 18 126/66 94
05/26/23 07:10 05/26/23 07:10 05/26/23 07:10 05/26/23 07:10 05/26/23 07:10
I&O
05/25/23 05/26/23 05/27/23
06:59 06:59 06:59
Intake Total 720 / 720 1560 / 1560
Output Total 200 / 200
Balance 720 / 720 1360 / 1360
Physical Exam
-
General: Well Developed and No Apparent Distress
HEENT: Normocephalic, Atraumatic and Moist Mucous Membranes
Respiratory: Clear to Auscultation
Cardiac: Regular Rhythm and S1/S2; Negative Murmur, Rub or Gallop
GI: Soft, Nontender, Nondistended and Normal Bowel Sounds; Negative Organomegaly
Rectal: Deferred by Provider
Musculoskeletal: No Clubbing, No Cyanosis and No Edema
Skin: Negative Rash
Neuro: Awake, Alert, Oriented, AO x 3, No Motor Deficits and Nonfocal/Grossly Intact
Psych: Calm
[2023-05-26] MEDS: HYDROCORTISONE 1% LOTION TOPICAL (10:17)
[2023-05-26] MEDS: DESENEX/MITRAZOL/ZEASORB 1 APPLIC TOPICAL (10:17)
--- NOTE | 2023-05-26 10:26 | W.DCSUMMARY ---
Discharge Summary
Discharge Data
Date of Admission: 05/22/23
Date of Discharge: 05/26/23
-
Pending Results: No
Hospital Course
72-year-old female past medical history of osteoarthritis, osteoporosis, hypertension, hyperlipidemia, obesity, breast cancer, prediabetes, overactive bladder, anxiety/depression presenting with severe left knee pain after attending physical therapy
yesterday and performing extension exercises with her legs. Underwent MRI of the knee which showed SEVERE OSTEOARTHRITIS in the LATERAL COMPARTMENT of the LEFT KNEE with severe full-thickness cartilage wear, severe joint space loss, and large
osteophytes. COMPLEX TEAR of the LATERAL MENISCUS with extrusion of the meniscal body containing a 1.5 cm complex parameniscal cyst surrounded by severe soft tissue edema. Patient was evaluated by orthopedic and recommended symptomatic management.
No acute surgical intervention will be required. Patient was recommended weight loss. Patient went to follow-up outpatient with his primary orthopedic. Patient was eval by physical and Occupational Therapy and be discharged to SNF.
Discharge Plan
-
Patient Disposition: Intermediate/SNF
Discharge Diagnosis/Procedures: Internal derangement of left knee from severe DJD and meniscal tear
Morbid obesity
In need of eventual total knee arthroplasty
Condition: Fair
Diet: As tolerated and Low Fat
Activity: With assistance and With Walker
Driving Restrictions: Not until seen by your Dr
Activity Restrictions/Additional Instructions:
Recommend a trial of hinged knee brace that might providewith a increase sensation of stability.
Referrals:
Izabella Layne DO [Family Provider] - in less than 1 week
Rico Santos MD [Active] - in two to three weeks
Prescriptions:
New
polyethylene glycol 3350 [HealthyLax] 17 gram Powder In Packet
17 g PO DAILY 14 Days Qty: 14 0RF
acetaminophen [Tylenol Extra Strength] 500 mg Tablet
1,000 mg PO TID Qty: 30 0RF
Continued
losartan 50 mg tablet
50 mg PO HS
ibuprofen 200 mg Tablet
400 mg PO NOON
omeprazole 20 mg capsule,delayed release(DR/EC)
20 mg PO DAILY
letrozole 2.5 mg tablet
2.5 mg PO HS
sertraline 50 mg tablet
50 mg PO HS
ezetimibe 10 mg tablet
10 mg PO HS
cholecalciferol (vitamin D3) [Vitamin D3] 25 mcg (1,000 unit) Tablet
25 mcg PO DAILY
Praluent Pen 75 mg/mL pen injector
75 mg SC Q2W
Gemtesa 75 mg tablet
75 mg PO NOON
Discontinued
acetaminophen 650 mg Tablet Extended Release
1,300 mg PO BID
Discharge Orders:
Discharge Patient (As Directed); Ordered 05/26/23
Ordered By: Lyndon Fragoso
[2023-05-26] MEDS: DETROL LA 4 MG PO (12:46)
[2023-05-26 15:20] VITALS: BP 134/81
--- NOTE | 2023-05-26 16:32 | CM ---
CM following re: d/c planning
Chart reviewed
Pt is medically stable for d/c
Pt will be transferred to [facility]
LOMN & inhouse transport forms competed and provided to -transport time confirmed for 3:30pm
Pt remains in observation and LAO letter provided by previous CM
[facility] insurance details provided below
CM called and spoke with the patient's daughter Oxana to update her regarding the same
No additional d/c needs to note
PLAN; d/c to [facility]
Report: [phone]

Pt was approved for 3 days per Tiffanie Kaye @ [facility]
Auth# has not been determined however ref# is [id number]
SOC 05/26 with NRD
Concurrent wire bound box machine helper is Rhonda Mckay
Fax:
== END 2023-05-26 16:21 ==
LOC: 4 EAST ACU 17:01
PROVIDERS: Physician Assistant; ADMITTING PHYSICIAN Hospitalist; ATTENDING PHYSICIAN Hospitalist; CONSULT PHYSICIAN Orthopaedic Surgery; EMERGENCY PHYSICIAN Emergency Medicine; FAMILY PHYSICIAN Student in an Organized Health Care Education/Training Program
DX: S83.272A Complex tear of lateral meniscus, current injury, left knee, initial encounter (principal); M17.12 Unilateral primary osteoarthritis, left knee; S83.242A Other tear of medial meniscus, current injury, left knee, initial encounter; X58.XXXA Exposure to other specified factors, initial encounter; M23.42 Loose body in knee, left knee; M65.862 Other synovitis and tenosynovitis, left lower leg; M81.0 Age-related osteoporosis without current pathological fracture; I10 Essential (primary) hypertension; E78.5 Hyperlipidemia, unspecified; R73.03 Prediabetes; E66.01 Morbid (severe) obesity due to excess calories; N32.81 Overactive bladder; F41.9 Anxiety disorder, unspecified; F32.A Depression, unspecified; K21.9 Gastro-esophageal reflux disease without esophagitis; K59.00 Constipation, unspecified; Z66 Do not resuscitate; Z68.42 Body mass index [BMI] 45.0-49.9, adult; Z79.899 Other long term (current) drug therapy; Z85.3 Personal history of malignant neoplasm of breast
CPT/HCPCS: 73564; 73721; 80053; 85025; 87070; 96372; 97116; 97166; 99284; G0378

== ENCOUNTER 2023-08-01 22:11 | Inpatient (IN) | payer MEDICARE, SELFPAY ==
[2023-08-01] VITALS (7 sets, daily range): BP systolic 95–133; BP diastolic 57–73; BMI 42.9
[2023-08-01 16:33] LABS: % Basophils 0.2 % (0-2); % Eosinophils 0.5 % (0-6); % Immature Granulocytes 0.6 % (0-0.5); % Lymphocytes 7.5 % (20.5-51.1); % Monocytes 2.8 % (1.7-9.3); % Neutrophils 88.4 % (42.2-75.2); Absolute Basophils 0.1 10^3/uL (0-0.2); Absolute Eosinophils 0.1 10^3/uL (0-0.7); Absolute Immature Granulocytes 0.1 10^3/uL (0-0.05); Absolute Lymphocytes 1.7 10^3/uL (1.2-3.4); Absolute Monocytes 0.7 10^3/uL (0.1-0.6); Absolute Neutrophils 20.5 10^3/uL (1.4-6.5); Hematocrit 47.1 % (37.0-47.0); Hemoglobin 15.8 g/dL (12.0-16.0); Mean Corp Hgb Conc. 33.5 g/dL (33.0-37.0); Mean Corpuscular Hgb 27.5 pg (27.0-31.0); Mean Corpuscular Volume 82.1 fL (81.0-99.0); Mean Platelet Volume 9.2 fL (7.4-10.4); Nucleated Red Blood Cells % 0 %; Platelet Count 339 10^3/uL (130-400); Red Blood Cell Count 5.74 10^6/uL (4.20-5.40); Red Cell Dist. Width 14.9 % (11.5-14.5); White Blood Cell Count 23.2 10^3/uL (4.8-10.8)
[2023-08-01 16:52] LABS: Blood Urea Nitrogen 17 mg/dl (7-17); Calcium 10.3 mg/dl (8.4-10.2); Carbon Dioxide 19 mmol/L (22-30); Chloride 107 mmol/L (98-107); Estimated Creatinine Clearance 72 ml/min; Glucose 123 mg/dl (70-99); Lipase 125 U/L (23-300); Sodium 135 mmol/L (135-145); eGFR > 60.00
--- NOTE | 2023-08-01 17:14 | ED.GENMED ---
History of Present Illness
General
Chief Complaint: Abdominal Symptoms
Time Seen by Provider: 08/01/23 17:14
Travel History
Have you had any contact with someone who has COVID-19?: No
Do you have any symptoms of coronavirus? Fever > 100 degrees, chills, cough, shortness of breath, sore throat, loss of taste or smell, muscle aches, or headache?: No
History of Present Illness
History of Present Illness:
HPI: Patient came in by ambulance due to abdominal pain along with diarrhea. Yesterday, the patient had a Botox injection into her bladder for urinary incontinence performed by [facility]ist. She vomited last evening. Today she had
diarrhea and abdominal pain in the lower/central abdomen. She noted that her blood pressure was low and came in by ambulance. She still feels nauseated currently. She has some vague dizziness as well. She has been taking Macrobid
prophylactically for the past 4 days.
EXAM:
GENERAL: Well appearing in no distress, elevated BMI
HEENT: Moist oral mucosa
CARDIOVASCULAR: No murmurs, normal heart rate, regular rhythm, No chest wall tenderness
PULMONARY: No respiratory distress, breath sounds are clear and equal
ABDOMEN: Soft with no peritoneal signs, mild diffuse tenderness, periumbilical hernias noted is soft and nontender
NEUROLOGIC: Excellent strength all extremities, no coordination deficits
PSYCHIATRIC: Appropriate mental status, normal insight and judgement
EXTREMITIES: Nontender, no edema, moves all extremities equally
SKIN: No rash, no lesions
TIME OF INITIAL ENCOUNTER: 5:20 PM
NUMBER AND COMPLEXITY OF PROBLEMS ADDRESSED AT THE ENCOUNTER
� Chronic conditions affecting care: High blood pressure, hyperlipidemia, prediabetes, depression
� Acute Exacerbation and/or Progression of Chronic Illness: This is an acute problem
� Differential Diagnosis includes: UTI, pyelonephritis, sepsis, bacteremia, procedural complication such as perforation. Likely
AMOUNT AND/OR COMPLEXITY OF DATA TO BE REVIEWED AND ANALYZED
� I performed an independent evaluation of and my interpretation is:
EKG:
CT: I personally viewed CT imaging of the abdomen pelvis�Ayesr catheter noted (was placed while in the ED)
X-rays:
Laboratory Studies: White count 23.2, bicarb 19
Other:
� Review of other/old records: I reviewed records, the patient had a normal white blood cell count on 05/23/2023 at 10.2
� Clinical information was obtained by an independent historian: I reviewed the EMS run sheet
� Prescriptions/Medications Considered but not given:
� Further testing considered but not performed:
RISK OF COMPLICATIONS AND/OR MORBIDITY OR MORTALITY OF PATIENT MANAGEMENT
� Social determinants of health affecting care: Lives at home, came in by ambulance
� Discussion with other providers: Sent message to Dr. Jay at 6:42 PM to notify him of the patient's presentation to the emergency department. Dr. Elam for admission at 9:20 PM
� Escalation of care including admission/observation vs risk of discharge considered: The patient has leukocytosis with low blood pressure in the setting of history of high blood pressure. I have asked the nurse for urinary
sample to obtained by catheterized specimen and patient agrees to this. We are also giving IV fluids. She declines analgesia but will give Zofran for nausea. Will admit for IV antibiotics/management of sepsis.
Phy Exam
Physical Exam
Physical Exam:
See HPI
Course
Orders/Labs/Results
Orders:
Orders
08/01/23 16:24
Electrocardiogram (*1) Urgent
Reason for Study: Vertigo / Dizzy
EKG- Treatment ONCE
08/01/23 16:27
Basic Metabolic Panel Urgent
Complete Blood Count/With Diff Urgent
Lipase Urgent
08/01/23 17:15
0.9% Sodium Chloride 1000 ml [Nss] 1,000 ml IV BOLUS
08/01/23 17:24
CT Abd/pelvis W Iv Cont Urgent
Comment:
Reason For Exam: diffuse pain 1d after botox bladder injection; V/D
Straight cath- Treatment ONCE
08/01/23 17:27
Ondansetron Injectable [Zofran] 4 mg IV NOW STA
08/01/23 17:36
Lactic Acid Q4H
Comment: CANCEL 2nd LACTIC ACID IF 1st LACTIC ACID IS LESS THAN 2
Urinalysis Reflex To Culture Urgent
Date Specimen was Collected: 08/01/23
Time Specimen was Collected: 17:25
Urine Microscopic Reflex Cult Urgent
Blood Culture Q30M
SIMA Source: Blood/Venous
Specimen Description:
Blood Culture Q30M
SIMA Source: Blood/Venous
Specimen Description:
Urine Culture Urgent
SIMA Source: U
Specimen Description:
Date Specimen was Collected: 08/01/23
Time Specimen was Collected: 17:25
08/01/23 18:42
0.9% Sodium Chloride 1000 ml [Nss] 1,000 ml IV BOLUS
08/01/23 18:43
Ayers Placement- Treatment ONCE
Reason for insertion: Urology Determination
0.9% Sodium Chloride 1000 ml [Nss] 1,000 ml IV BOLUS
08/01/23 18:55
Ciprofloxacin 400 mg/[id number] [Cipro 400 mg] 200 ml IV NOW
08/01/23 21:15
Lactic Acid Q4H
Comment: CANCEL 2nd LACTIC ACID IF 1st LACTIC ACID IS LESS THAN 2
Abnormal Lab Results
08/01/23 08/01/23
16:27 17:36
WBC 23.2 H 10^3/uL
(4.8-10.8)
RBC 5.74 H 10^6/uL
(4.20-5.40)
Hct 47.1 H %
(37.0-47.0)
RDW 14.9 H %
(11.5-14.5)
Abs Immat Gran (auto) 0.1 H 10^3/uL
(0-0.05)
Absolute Neuts (auto) 20.5 H 10^3/uL
(1.4-6.5)
Absolute Monos (auto) 0.7 H 10^3/uL
(0.1-0.6)
Immature Gran % 0.6 H %
(0-0.5)
Neutrophils % 88.4 H %
(42.2-75.2)
Lymphocytes % 7.5 L %
(20.5-51.1)
Carbon Dioxide 19 L mmol/L
(22-30)
Glucose 123 H mg/dl
(70-99)
Lactic Acid 2.6 H mmol/L
(0.7-2.0)
Calcium 10.3 H mg/dl
(8.4-10.2)
Urine Ketones 1+ A
(Negative)
Ur Occult Blood Reflex 4+ A
(Negative)
Urine Bilirubin 1+ A
(Negative)
Leukocyte Esterase Rfl 1+ A
(Negative)
Urine RBC >100 A /HPF
(0-2)
Urine Albumin (Reflex) 2+ A
(Neg - Trace)
08/01/23 16:27
08/01/23 16:27
Vital Signs
Initial and Last Documented VS:
Initial Vital Signs
Temp Pulse Resp BP Pulse Ox
97.6 F 93 22 95/64 91
08/01/23 16:15 08/01/23 16:15 08/01/23 16:15 08/01/23 16:15 08/01/23 16:15
Last Documented Vital Signs
Temp Pulse Resp BP Pulse Ox
97.6 F 73 17 124/67 98
08/01/23 16:15 08/01/23 21:15 08/01/23 21:15 08/01/23 21:00 08/01/23 21:15
*Critical Care Note
Total Time (30-74mins, 75-104mins- exclusive of procedures): Not Applicable
ED Attending Note
-
Portions of this chart may have been created with voice recognition software.� Occasional wrong word or��sound alike� substitutions may have occurred due to the inherent limitations of voice recognition software.
Discharge Plan
Departure
Patient Disposition: Admit
Date of Disposition: 08/01/23
Time of Disposition: 21:14
Presentation/result/management discussed w/ accepting MD/DO: Hospitalist
Discharge Problem:
Sepsis
Prescriptions:
No Action
losartan 50 mg tablet
50 mg PO HS
ibuprofen 200 mg Tablet
400 mg PO NOON
omeprazole 20 mg capsule,delayed release(DR/EC)
20 mg PO DAILY
letrozole 2.5 mg tablet
2.5 mg PO HS
sertraline 50 mg tablet
50 mg PO HS
ezetimibe 10 mg tablet
10 mg PO HS
cholecalciferol (vitamin D3) [Vitamin D3] 25 mcg (1,000 unit) Tablet
25 mcg PO DAILY
Praluent Pen 75 mg/mL pen injector
75 mg SC Q2W
Gemtesa 75 mg tablet
75 mg PO NOON
acetaminophen [Tylenol Extra Strength] 500 mg Tablet
1,000 mg PO TID Qty: 30 0RF
Referrals:
Izabella Layne DO [Family Provider] -
Interventions
Interventions:
*Risk Screen - Suicide Last Done: 08/01/23 16:23
*General Assessment Last Done: 08/01/23 16:23
*Neglect/Abuse Screening Last Done: 08/01/23 16:23
ED- Fall Risk Assessment Last Done: 08/01/23 16:35
*ED COVID-19 Vaccine History Last Done: 08/01/23 16:23
AE-Uqyphm-Pzotwgerhi Assessment Last Done: 08/01/23 16:33
Discharge Date and Time
Print Language: CANADIAN
[2023-08-01] MEDS: NSS 1000 IV ×3 (17:44→20:31)
[2023-08-01] MEDS: ZOFRAN 4 MG IV (17:46)
[2023-08-01 17:54] LABS: Urine Albumin 2+ (Neg - Trace); Urine Bilirubin 1+ (Negative); Urine Character Very Cloudy (Clear); Urine Color Red; Urine Glucose Negative (Negative); Urine Ketone 1+ (Negative); Urine Leukocyte 1+ (Negative); Urine Nitrite Negative (Negative); Urine Occult Blood 4+ (Negative); Urine Urobilinogen 1+ (Neg - 1+)
[2023-08-01 18:05] LABS: Lactic Acid 2.6 mmol/L (0.7-2.0)
[2023-08-01 18:08] LABS: Urine Red Blood Cell >100 /HPF (0-2)
[2023-08-01] MEDS: CIPRO 400 MG 200 IV (19:11)
--- NOTE | 2023-08-01 21:52 | HPS.HSE ---
Family Physician
-
Family Physician: Gifty Layne DO
Chief Complaint
-
Abd Pain, N/V/D
History of Present Illness
Patient is a 72y F with PMH significant for morbid obesity, HTN and overactive bladder who presents to ED complaining of abdominal pain, N/V/D. Patient notes that she was seen by Urology yesterday and underwent Botox injection for OAB. She
returned home from that procedure and had a single episode of N/V. She woke this AM and felt fairly well. This afternoon, she began to have crampy abdominal pain and had recurrent N/V as well as multiple episodes of loose, non-bloody diarrhea.
Patient felt extremely weak and fatigued. She called 911 and EMS evaluated her and found that her BP was low (systolic in the 90s on arrival to the ED).
Patient was brought to the ED for further evaluation. She received Zofran from EMS and has had no further emesis or diarrhea since arrival here.
Patient denies any GI symptoms prior to her Botox procedure. She denies any fevers / chills.
Patient states that she urinated normally this AM. She is not certain if she passed urine while having diarrhea this afternoon.
Patient notes that she has been taking Macrobid periprocedurally (started 07/28 and scheduled to complete after 5 days).
Medical History
Past Medical History
Past Medical History: Reports Other
Additional Past Medical History:
Hypertension
Morbid Obesity
Overactive Bladder
Right Breast Cancer s/p Lumpectomy and Hormone therapy
Hyperparathyroidism
Anxiety / Depression
Umbilical Hernia
DJD
Past Surgical History: Reports Other
Additional Past Surgical History:
Right Lumpectomy
Parathyroidectomy
Cataracts
Right Knee Arthroscopy
Right Carpal Tunnel Surgery
Social History
Tobacco: Non-smoker
Alcohol: None
Drug: None
Family History
Family History: Not pertinent
Allergies / Home Medications
Allergies reflects when Allergies were last updated in [employer]
Home Medications with original date entered in [employer]
Allergy/Medication List:
Allergies
Allergy/AdvReac Type Severity Reaction Status Date / Time
adhesive tape Allergy Rash Verified 08/01/23 20:14
amoxicillin Allergy Hives Verified 08/01/23 20:14
Cephalosporins Allergy Hives Verified 08/01/23 20:14
Penicillins Allergy Hives Verified 08/01/23 20:14
Home Medications
alirocumab 75 mg/mL subcutaneous pen injector (Praluent Pen) 75 mg SC Q2W Autoimmune Disorder 05/22/23
cholecalciferol (vitamin D3) 25 mcg (1,000 unit) tablet (Vitamin D3) 25 mcg PO DAILY Supplement 05/22/23
ezetimibe 10 mg tablet 10 mg PO HS High Cholesterol 05/22/23
ibuprofen 200 mg tablet 400 mg PO NOON Pain 05/22/23
letrozole 2.5 mg tablet 2.5 mg PO HS Cancer 05/22/23
losartan 50 mg tablet 50 mg PO HS Blood Pressure 05/22/23
omeprazole 20 mg capsule,delayed release 20 mg PO DAILY GERD 05/22/23
sertraline 50 mg tablet 50 mg PO HS Mental Health/Anxiety 05/22/23
vibegron 75 mg tablet (Gemtesa) 75 mg PO NOON OVERACTIVE BLADDER 05/22/23
acetaminophen 500 mg tablet (Tylenol Extra Strength) 1,000 mg (2 x 500 mg) PO TID #30 tabs 05/26/23
Review of Systems
-
History Source: Patient
A 12 point ROS was completed and negative except as noted: Yes
Constitutional: Reports Fatigue; Denies Fever or Chills
EENT: Denies Sore Throat
Respiratory: Denies Cough or Trouble Breathing
Cardiac: Denies Chest Pain or Palpitations
Abdomen/GI: Reports Abdominal Pain, Nausea, Vomiting and Diarrhea; Denies Bloody Stools or Black Stools
: Denies Dysuria, Frequency or Flank Pain
Neurological: Denies Dizzy or Headache
Psych: Denies Depression or Anxiety
Physical Exam
Vital Signs
Vital Signs
Temp Pulse Resp BP Pulse Ox
97.6 F 73 17 124/67 98
08/01/23 16:15 08/01/23 21:15 08/01/23 21:15 08/01/23 21:00 08/01/23 21:15
Physical Exam
General: Other (Obese 72y F in no acute distress.)
HEENT: Moist mucous membranes and PERRLA
Respiratory: Other (Decreased at bases - otherwise clear.)
Cardiac: S1/S2 and Regular Rhythm; No Murmur
GI: Other (Obese, mild suprapubic tenderness. Pos bowel sounds. Anterior / Umbilical hernia without tenderness.)
Genito-urinary: Other (Ayers is in place.)
Musculoskeletal: No Clubbing, No Cyanosis and No Edema
Neuro: AO x 3
Laboratory Results
-
08/01/23 16:27
08/01/23 16:27
Laboratory Results
Lactic Acid 2.6 mmol/L (0.7-2.0) H 08/01/23 17:36
Total Bilirubin Cancelled 08/01/23 16:27
AST Cancelled 08/01/23 16:27
ALT Cancelled 08/01/23 16:27
Alkaline Phosphatase Cancelled 08/01/23 16:27
Lipase 125 U/L (23-300) 08/01/23 16:27
Impression/Plan
-
A/P: Patient is a 72y F with PMH significant for hypertension, morbid obesity and OAB who presents to ED c/o abdominal pain with N/V/D s/p bladder Botox injection 24 hours ago.
Abdominal Pain
N/V/D
- Admit for further evaluation and treatment.
- Etiology of symptoms is not clear - ? infectious process / med or procedure effect / etc.
- Significant leukocytosis, but no other SIRS criteria to qualify as 'sepsis'.
- CT A/P was unremarkable.
- Supportive care including IVF support, antiemetics, pain control if needed, etc.
- Check stool studies.
- Will continue with abx for now with ciprofloxacin pending culture data / clinical changes.
- Note that patient has allergy to PCN (hives) but has never had allergic response to cephalosporins - was just 'told to put that on there'.
- Note that patient recently started Ozempic 0.5 (about one month ago) which can also contribute to GI symptoms - Hold for now.
Lactic Acidosis
Hypotension
- Likely secondary to volume losses from emesis / diarrhea.
- Responded promptly to IVF replacement in the ED.
- Continue IVFs overnight.
- Holding parameters for BP medications.
- Follow for stability / improvement in BP and lactate level.
OAB
- s/p Botox injection done on 07/31/23.
- Ayers placed in the ED at Urology direction.
- UA with predominance of RBCs - follow-up culture results.
- Urology consulted.
- Follow for any new issues / complaints.
Benign Hypertension
- Hypotensive on arrival as as noted above.
- Continue losartan with holding parameters (to start tomorrow evening).
Anxiety / Depression
- Stable. Continue outpatient medications.
Morbid Obesity due to excess calories
- Affects all aspects of care.
- Encourage healthy diet / increased activity with goal of weight loss.
- Hold Ozempic for now given GI complaints.
DVT Prophylaxis: SCDs
Code Status: Full
[2023-08-02] VITALS (10 sets, daily range): BP systolic 110–138; BP diastolic 36–77; PULSE 65–83; O2SAT 96; BMI 43.0
[2023-08-02] MEDS: TYLENOL 1000 MG PO ×4 (00:46→21:12)
[2023-08-02] MEDS: ZETIA 10 MG PO ×2 (00:46→21:11)
[2023-08-02] MEDS: FEMARA 2.5 MG PO ×2 (00:46→21:12)
[2023-08-02] MEDS: ZOLOFT 50 MG PO ×2 (00:46→21:11)
[2023-08-02] MEDS: NSS 1000 IV ×2 (00:47→08:25)
[2023-08-02 01:07] LABS: Lactic Acid 0.8 mmol/L (0.7-2.0)
--- NOTE | 2023-08-02 04:50 | PTCARENOTE ---
08/01/2023 - PT admitted to room 4 at approx. 21:45 from the ED. PT transferred from stretcher to bed with assist x 1 and roller walker. PT oriented to room, call corey, place of care discussed. PT is AAOX3 and participated fully in admission
questions. Tele monitor #24 placed and reading NSR in the 70's. Assesment as documented.
[2023-08-02 05:55] LABS: Hematocrit 37.3 % (37.0-47.0); Hemoglobin 12.3 g/dL (12.0-16.0); Mean Corpuscular Hgb 27.7 pg (27.0-31.0); Mean Platelet Volume 9.5 fL (7.4-10.4); Platelet Count 231 10^3/uL (130-400); Red Blood Cell Count 4.44 10^6/uL (4.20-5.40); Red Cell Dist. Width 14.7 % (11.5-14.5); White Blood Cell Count 12.9 10^3/uL (4.8-10.8)
[2023-08-02 06:02] LABS: Lactic Acid 0.9 mmol/L (0.7-2.0)
[2023-08-02 06:21] LABS: Blood Urea Nitrogen 14 mg/dl (7-17); Calcium 9.6 mg/dl (8.4-10.2); Carbon Dioxide 19 mmol/L (22-30); Chloride 112 mmol/L (98-107); Estimated Creatinine Clearance 96 ml/min; Glucose 86 mg/dl (70-99); Potassium 4.4 mmol/L (3.5-5.1); Sodium 136 mmol/L (135-145); eGFR > 60.00
--- NOTE | 2023-08-02 06:40 | W.PN.HOSP.TC ---
Today's Communication/Plan
-
cont abx, potential switch to oral 24h-48h depending on clinical progress
regular diet resumed, IVF completed
follow cultures
discharge planning Home health
Assessment / Plan
Assessment / Plan
Physical Exam
General: No acute distress Appears comfortable at this time
HEENT: Moist mucous membranes and PERRLA
Respiratory: Clear to Auscultation b/l
Cardiac: S1/S2 and Regular Rhythm; No Murmur
GI: soft nontender bowel sounds present Anterior / Umbilical hernia without tenderness
Musculoskeletal: No Clubbing, No Cyanosis and No Edema
Neuro: AO x 3
A/P: Patient is a 72y F with PMH significant for hypertension, morbid obesity and OAB who presents to ED c/o abdominal pain with N/V/D s/p bladder Botox injection 24 hours ago.
Abdominal Pain
N/V/D
Possibly d/t Complicated UTI
-Symptoms improved with IV abx
- CT A/P was unremarkable.
- Diarrhea Nausea Vomiting since resolved following start of abx IV ciprofloxacin
-Blood Cx NGTD, Urine Cx results pending
- Note that patient has allergy to PCN (hives) but has never had allergic response to cephalosporins - was just 'told to put that on there'.
- Note that patient recently started Ozempic 0.5 (about one month ago) which can also contribute to GI symptoms - Hold for now.
Lactic Acidosis
Hypotension
- Likely secondary to volume losses from emesis / diarrhea.
- Resolved with IVF supplementation since completed with toleration diet
OAB
- s/p Botox injection done on 07/31/23.
- Ayers placed in the ED at Urology direction.
- UA with predominance of RBCs - follow-up culture results.
- Urology consult appreciated, Ayers since discontinued 08/01 Trial of Void
Benign Hypertension
- cont Home Losartan with holding parameters
Anxiety / Depression
- Stable. Continue outpatient medications.
Morbid Obesity due to excess calories
- Affects all aspects of care.
- Encourage healthy diet / increased activity with goal of weight loss.
- Hold Ozempic for now given GI complaints.
DVT Prophylaxis: SCDs
Code Status: Full
PT/OT appreciated Home health
I spent a total of 50 minutes with the patient or on the floor. More than 50% of this time involved counseling and coordination of care.
Anticipated Discharge: 24 - 48 hours
Subjective/Interval History
-
Date of Service: August 02, 2023
No acute distress sitting up comfortably in chair. reports tolerating diet resolution nausea vomiting diarrhea.
Objective Data
-
Labs:
Laboratory Results
08/02/23 08/02/23
05:08 05:09
WBC 12.9 H
Hgb 12.3 D
Hct 37.3
Plt Count 231 D
Sodium 136
Potassium 4.4
Chloride 112 H
Carbon Dioxide 19 L
BUN 14
Creatinine 0.5 L
Glucose 86
Calcium 9.6
Vital Signs:
Vital Signs
Temp Pulse Resp BP Pulse Ox
97.8 F 77 17 121/36 98
08/02/23 04:07 08/02/23 04:07 08/02/23 04:07 08/02/23 04:07 08/02/23 04:07
I&O
07/31/23 08/01/23 08/02/23
06:59 06:59 06:59
Output Total 550 / 550
Balance -550 / -550
[2023-08-02] MEDS: CIPRO 400 MG 200 IV ×2 (08:25→21:10)
[2023-08-02] MEDS: PROTONIX 40 MG PO (08:25)
--- NOTE | 2023-08-02 09:42 | W.PN.URO.CBU ---
Today's Communication / Plan
-
remove saba please make sure pt an void
Assessment / Plan
-
most likely dx is complx uti but cxs pending urologically stable will remove saba follow labs and cxs
Diagnosis
-
Date of Service: August 02, 2023
-
Patient Diagnosis:hypotension and elevated wbc s/p botox injection despite prophylactic antibiotics no dysuria frequency side pain nl ct scn
Post Op Day:
Subjective
-
feel much better today
Objective
-
Vital Signs
Temp Pulse Resp BP Pulse Ox
98.3 F 75 16 114/61 94
08/02/23 07:03 08/02/23 07:03 08/02/23 07:03 08/02/23 07:03 08/02/23 07:03
Intake and Output
08/01/23 08/02/23 08/03/23
06:59 06:59 06:59
Output Total 550 / 550
Balance -550 / -550
Output:
Urine, Saba 550 / 550
Laboratory Results
08/02/23 05:09
08/02/23 05:08
Review of Systems
-
: No Symptoms
Physical Exam
-
General - well developed, well nourished, no acute distress
Chest - clear bilaterally
Abdomen - soft, non-tender, positive bowel sounds, no CVAT, no incisional pain or distention
Genitalia - normal
Rectal - normal
Skin - warm & dry with no rash
Neuro - AOx3, no motor deficits
Extremities - no clubbing, no cyanosis, no edema
Incision - clean, dry
Dressing - clean, dry, intact
Care Review
Data Reviewed
Discussed with: Hospitalist and Nursing
CT Scan: Image Pers Reviewed
--- NOTE | 2023-08-02 11:19 | CM ---
CM following re: discharge planning.
Reviewed pt's chart, met with pt.
Pt is a 72 year old female, admitted with primary dx of nausea/vomiting/diarrhea.
Pt reports she has been living at [facility], has supportive daughter who lives nearby and helps/supports as needed. Pt reports she ambulates with a walker, has a wheelchair to get to a dining room. Pt
reports she was at [facility] in April of this year and has been receiving physical therapy at [facility] provided by [facility]. Pt expressed her desire to return back to her apartment at [facility] with [facility]. Pt
reports [facility] staff provides meals and housekeeping.
PCP: Izabella Henderson
Pharmacy: [facility].
D/C plan: per pt's request, return back to her apartment at [facility] with [facility], staff and family support. Pt stated her daughter will transport at discharge.
CM will follow with discharge plan updates as hospitalization progresses
[2023-08-02] MEDS: TYLENOL PO (16:43)
[2023-08-02] MEDS: NSS IV (16:44)
[2023-08-02] MEDS: COZAAR 50 MG PO (21:13)
--- NOTE | 2023-08-02 23:32 | PTCARENOTE ---
Pt on the call corey, reports redness/itching proximal to IV site with active infusing Ciprofloxacin, infusion immediately stopped and IV flushed. Pt had received 150mL of 200mL infusion, pt's 3rd dose during this hospital stay. Pt's forearm with
intermittent red streaking with reported itching. VAT team contacted, IV site removed secondary to likely infiltration, new IV placed. Covering SIDE PIECE COVERER notified, responded bedside to evaluate pt's arm, pt's arm with 75% improvement in symptoms upon
SIDE PIECE COVERER's arrival. Per SIDE PIECE COVERER, okay to continue current infusion via new IV site, pt educated on potential allergic reaction sx to notify staff. Pt tolerated remainder of the infusion without any further reaction/symptoms/trouble.
[2023-08-03 03:11] VITALS: BP 123/61
[2023-08-03 05:31] LABS: Hematocrit 36.6 % (37.0-47.0); Mean Corp Hgb Conc. 32.8 g/dL (33.0-37.0); Mean Corpuscular Hgb 27.5 pg (27.0-31.0); Mean Corpuscular Volume 83.8 fL (81.0-99.0); Mean Platelet Volume 9.1 fL (7.4-10.4); Platelet Count 220 10^3/uL (130-400); Red Blood Cell Count 4.37 10^6/uL (4.20-5.40); Red Cell Dist. Width 14.6 % (11.5-14.5); White Blood Cell Count 8.4 10^3/uL (4.8-10.8)
[2023-08-03 05:57] LABS: Blood Urea Nitrogen 8 mg/dl (7-17); Calcium 9.9 mg/dl (8.4-10.2); Carbon Dioxide 22 mmol/L (22-30); Chloride 112 mmol/L (98-107); Estimated Creatinine Clearance 96 ml/min; Glucose 88 mg/dl (70-99); Phosphorus 3.6 mg/dl (2.5-4.5); Potassium 4.2 mmol/L (3.5-5.1); Sodium 138 mmol/L (135-145); eGFR > 60.00
[2023-08-03 07:15] VITALS: BP 139/71
--- NOTE | 2023-08-03 08:24 | W.PN.HOSP.TC ---
Today's Communication/Plan
-
Discharge today
Assessment / Plan
Assessment / Plan
A/P: Patient is a 72y F with PMH significant for hypertension, morbid obesity and OAB who presents to ED c/o abdominal pain with N/V/D s/p bladder Botox injection 24 hours ago.
Abdominal Pain
N/V/D
Possibly d/t gastroenteritis
- CT A/P was unremarkable.
- Diarrhea Nausea Vomiting since resolved
- Blood Cx NGTD, Urine Cx neg.
- Has been on cipro. Leukocytosis resolved, ?possibly reactive. She is afebrile, medically stable for discharge without antibiotics.
- Note that patient has allergy to PCN (hives) but has never had allergic response to cephalosporins - was just 'told to put that on there'.
- Note that patient recently started Ozempic 0.5 (about one month ago) which can also contribute to GI symptoms - Hold for now.
Lactic Acidosis
Hypotension
- Likely secondary to volume losses from emesis / diarrhea.
- Resolved with IVF supplementation since completed with toleration diet
OAB
- s/p Botox injection done on 07/31/23.
- Ayers placed in the ED at Urology direction.
- UA with predominance of RBCs - follow-up culture results.
- Urology consult appreciated, Ayers since discontinued 08/01 she has been voiding fine
Benign Hypertension
- cont Home Losartan with holding parameters
Anxiety / Depression
- Stable. Continue outpatient medications.
Morbid Obesity due to excess calories
- Affects all aspects of care.
- Encourage healthy diet / increased activity with goal of weight loss.
- Hold Ozempic for now given GI complaints.
DVT Prophylaxis: SCDs
Code Status: Full
PT/OT appreciated Home health
Physical Exam
General: Morbidly obese, no acute distress Appears comfortable at this time
HEENT: Moist mucous membranes and PERRLA
Respiratory: Clear to Auscultation b/l
Cardiac: S1/S2 and Regular Rhythm; No Murmur
GI: soft nontender bowel sounds present Anterior / Umbilical hernia without tenderness
Musculoskeletal: No Clubbing, No Cyanosis and No Edema
Neuro: AO x 3
Anticipated Discharge: Today
Subjective/Interval History
-
Date of Service: August 03, 2023
Patient reports feeling much better. Nausea, vomiting, diarrhea resolved. Her Ayers was removed, and she was able to void. She did have intermittent bilateral pelvic cramps this morning, improved. She is tolerating her diet.
Objective Data
-
Labs:
Laboratory Results
08/03/23
05:05
WBC 8.4
Hgb 12.0
Hct 36.6 L
Plt Count 220
Sodium 138
Potassium 4.2
Chloride 112 H
Carbon Dioxide 22
BUN 8
Creatinine 0.5 L
Glucose 88
Calcium 9.9
Vital Signs:
Vital Signs
Temp Pulse Resp BP Pulse Ox
97.7 F 65 18 123/61 97
08/03/23 03:11 08/03/23 03:11 08/03/23 03:11 08/03/23 03:11 08/03/23 03:11
I&O
08/02/23 08/03/23 08/04/23
06:59 06:59 06:59
Intake Total 1939 / 1939
Output Total 550 / 550 650 / 650
Balance -550 / -550 1290 / 1290
[2023-08-03] MEDS: PROTONIX 40 MG PO (09:26)
[2023-08-03] MEDS: TYLENOL 1000 MG PO (09:26)
[2023-08-03] MEDS: CIPRO 400 MG 200 IV (09:27)
--- NOTE | 2023-08-03 10:09 | W.PN.URO.CBU ---
Today's Communication / Plan
-
probably home when pok per hosita;ist no gu nterventuion
Assessment / Plan
-
most likely dx is complx uti but cxs pending urologically stable will remove saba follow labs and cxs
Diagnosis
-
Date of Service: August 03, 2023
-
Patient Diagnosis:
Post Op Day:
Patient Diagnosis:hypotension and elevated wbc s/p botox injection despite prophylactic antibiotics no dysuria frequency side pain nl ct scn
Post Op Day:
Subjective
-
feels well voiding mild abd tendermnes presumably from vomiting
Objective
-
Vital Signs
Temp Pulse Resp BP Pulse Ox
98.4 F 65 18 139/71 98
08/03/23 07:15 08/03/23 07:15 08/03/23 07:15 08/03/23 07:15 08/03/23 07:15
Intake and Output
08/02/23 08/03/23 08/04/23
06:59 06:59 06:59
Intake Total 194 / 0
Output Total 550 / 550 650 / 650
Balance -550 / -550 1290 / 1290
Intake:
Oral fluids 1740 / 1740
IV piggybacks 200 / 200
Output:
Urine, Saba 550 / 550 650 / 650
Other:
Number of approximated SMALL 1
amounts of urine
Number of approximated MODERATE 1
amounts of urine
Number of approximated LARGE 2
amounts of urine
Laboratory Results
08/03/23 05:05
08/03/23 05:05
Review of Systems
-
Abdomen/GI: No Symptoms
: No Symptoms
Physical Exam
-
General - well developed, well nourished, no acute distress
Chest - clear bilaterally
Abdomen - soft, non-tender, positive bowel sounds, no CVAT, no incisional pain or distention
Genitalia - normal
Rectal - normal
Skin - warm & dry with no rash
Neuro - AOx3, no motor deficits
Extremities - no clubbing, no cyanosis, no edema
Incision - clean, dry
Dressing - clean, dry, intact
Care Review
Data Reviewed
Discussed with: Other (uro enterprise cloud architect)
[2023-08-03 11:10] VITALS: BP 127/75
--- NOTE | 2023-08-03 12:02 | W.DCSUMMARY ---
Discharge Summary
Discharge Data
Date of Admission: 08/01/23
Date of Discharge: 08/03/23
-
Pending Results: No
Hospital Course
Discharge diagnosis:
Abdominal pain
Nausea/vomiting/diarrhea, possibly due to gastroenteritis
Leukocytosis, possibly reactive
Hypotension
Lactic acidosis
Acute urinary retention secondary to Botox
Overactive bladder
Benign essential hypertension
Anxiety/depression
Morbid obesity due to excess calories
Consults: Urology
CT abd/pelvis:
No acute process in the abdomen or pelvis. No free air. No free fluid.
Mild hepatosplenomegaly. Contracted gallbladder most consistent with recent meal ingestion. No bowel obstruction. There is a large hernia in the anterior pelvis containing loops of bowel however these are not obstructed.
Extensive diverticulosis. Minimal stranding about the sigmoid colon. No definite finding to suggest acute diverticulitis.
Ayers catheter in place.
No discrete mass or adenopathy.
Age-indeterminate anterior wedge compression fracture of L1. Mild retropulsion of the vertebral body and retrolisthesis of L1 on L2.
Hospital course:
72-year-old female with a past medical history of morbid obesity, hypertension, and overactive bladder receiving Botox injections presents with abdominal pain, nausea, vomiting, and diarrhea. Patient's blood pressure was in the 90s systolic upon
arrival, she had an elevated lactic acid of 2.6. Suspect this is due to dehydration. She was treated with IV fluids.
She had a Botox injection for her overactive bladder prior to hospital admission. There was concern for acute urinary tract infection. She was treated with IV Cipro. She had a Ayers inserted. Ayers was removed, and she was able to void
successfully. Urine cultures were negative. Procalcitonin also negative.
After several days, patient felt markedly better. Her nausea, vomiting, diarrhea resolved. Suspect she may have a transient case of gastroenteritis. Since procalcitonin and urine culture are negative, will not continue antibiotics upon discharge.
She is medically stable for discharge. She needs to follow-up with her primary care doctor in 1 week, as well as her usual urologist in the office in 2-3 weeks.
Disposition: Home self-care
Discharge planning: Required 37 minutes
Discharge Plan
-
Patient Disposition: Home with Home Care
Discharge Diagnosis/Procedures: Abdominal pain, nausea/vomiting/diarrhea possibly from gastroenteritis, leukocytosis likely reactive, urinary retention secondary to Botox
Condition: Fair
Diet: Regular
Activity: As tolerated
Driving Restrictions: As prior to admission
Other Services: VN and PT
Referrals:
Izabella Layne DO [Family Provider] - in one week
Prescriptions:
Continued
losartan 50 mg tablet
50 mg PO HS
ibuprofen 200 mg Tablet
400 mg PO NOON
omeprazole 20 mg capsule,delayed release(DR/EC)
20 mg PO DAILY
letrozole 2.5 mg tablet
2.5 mg PO HS
sertraline 50 mg tablet
50 mg PO HS
ezetimibe 10 mg tablet
10 mg PO HS
cholecalciferol (vitamin D3) [Vitamin D3] 25 mcg (1,000 unit) Tablet
25 mcg PO DAILY
Praluent Pen 75 mg/mL pen injector
75 mg SC Q2W
Gemtesa 75 mg tablet
75 mg PO NOON
acetaminophen [Tylenol Extra Strength] 500 mg Tablet
1,000 mg PO TID Qty: 30 0RF
Discharge Orders:
Discharge Patient (As Directed); Ordered 08/03/23
Ordered By: Evangelista Strange
Discharge Date and Time
Discharge Date/Time: 08/03/23 14:39
Print Language: MARSHALLESE
--- NOTE | 2023-08-03 14:32 | CM ---
Patient has been medically cleared for discharge to home at [facility]. Patient declined VN. Daughter to transport home.
[facility]
== END 2023-08-03 14:39 | disposition home health service (06) | DRG 392 ==
LOC: 2 NORTH 22:11
PROVIDERS: Emergency Medicine; Internal Medicine; ADMITTING PHYSICIAN Hospitalist; ATTENDING PHYSICIAN Family Medicine; CONSULT PHYSICIAN Specialist; EMERGENCY PHYSICIAN Emergency Medicine; FAMILY PHYSICIAN Student in an Organized Health Care Education/Training Program
DX: R10.9 Unspecified abdominal pain (principal); E87.20 Acidosis, unspecified; Z68.41 Body mass index [BMI] 40.0-44.9, adult; K57.30 Diverticulosis of large intestine without perforation or abscess without bleeding; I95.9 Hypotension, unspecified; F32.A Depression, unspecified; F41.9 Anxiety disorder, unspecified; E66.01 Morbid (severe) obesity due to excess calories; I10 Essential (primary) hypertension; N32.81 Overactive bladder; K52.9 Noninfective gastroenteritis and colitis, unspecified
CPT/HCPCS: 51701; 51702; 74177; 80048; 81003; 81015; 83605; 83690; 83735; 84100; 85025; 85027; 87040; 87086; 93005; 96361; 96374; 96375; 97162; 97166; 99285; Q9967

== ENCOUNTER → 2024-01-13 14:30 | Outpatient (REF) | payer MEDICARE, SELFPAY | LOC: WDC 14:30 | PROVIDERS: ATTENDING PHYSICIAN Emergency Medicine | DX: Z12.31 Encounter for screening mammogram for malignant neoplasm of breast (principal) | CPT/HCPCS: 77063; 77067 ==

== ENCOUNTER → 2024-01-15 09:21 | Outpatient (REF) | payer MEDICARE, SELFPAY ==
[2024-01-15 11:05] LABS: Glycohemoglobin (HgbA1c) 5.2 % (4.0-5.6)
[2024-01-15 11:22] LABS: ALT (SGPT) 17 U/L (0-35); AST (SGOT) 22 U/L (14-36); Albumin 4.4 g/dl (3.5-5.0); Alkaline Phosphatase 97 U/L (38-126); Blood Urea Nitrogen 14 mg/dl (7-17); Calcium 10.3 mg/dl (8.4-10.2); Carbon Dioxide 25 mmol/L (22-30); Chloride 106 mmol/L (98-107); Glucose 87 mg/dl (70-99); HDL Cholesterol 48 mg/dl; LDL Cholesterol, Calculated 53 mg/dl; Potassium 4.8 mmol/L (3.5-5.1); Sodium 141 mmol/L (135-145); Total Bilirubin 0.4 mg/dl (0.2-1.3); Total Cholesterol 152 mg/dl (50-199); Triglyceride 256 mg/dl (10-149); Very Low Density Lipoprotein 51 mg/dl (0-30); eGFR > 60.00
[2024-01-15 11:44] LABS: TSH Reflex To Free T4 1.06 uIU/ml (0.47-4.68)
== END ==
LOC: REG 09:21
PROVIDERS: ATTENDING PHYSICIAN Emergency Medicine
DX: E78.2 Mixed hyperlipidemia (principal); E04.1 Nontoxic single thyroid nodule; R73.03 Prediabetes
CPT/HCPCS: 36415; 80053; 80061; 83036; 84443

== ENCOUNTER → 2024-02-26 13:58 | Outpatient (REF) | payer MEDICARE, SELFPAY | LOC: RAD 13:58 | PROVIDERS: ATTENDING PHYSICIAN Emergency Medicine | DX: E04.1 Nontoxic single thyroid nodule (principal); Z12.31 Encounter for screening mammogram for malignant neoplasm of breast | CPT/HCPCS: 76536 ==

== ENCOUNTER → 2024-04-14 09:47 | Outpatient (REF) | payer MEDICARE, SELFPAY ==
[2024-04-14 10:38] LABS: % Basophils 0.5 % (0-2); % Eosinophils 3.1 % (0-6); % Immature Granulocytes 0.3 % (0-0.5); % Lymphocytes 33.5 % (20.5-51.1); % Monocytes 6.3 % (1.7-9.3); % Neutrophils 56.3 % (42.2-75.2); Absolute Basophils 0.1 10^3/uL (0-0.2); Absolute Eosinophils 0.3 10^3/uL (0-0.7); Absolute Lymphocytes 3.5 10^3/uL (1.2-3.4); Absolute Monocytes 0.7 10^3/uL (0.1-0.6); Absolute Neutrophils 5.9 10^3/uL (1.4-6.5); Hematocrit 41.9 % (37.0-47.0); Hemoglobin 13.7 g/dL (12.0-16.0); Mean Corp Hgb Conc. 32.7 g/dL (33.0-37.0); Mean Corpuscular Hgb 28.1 pg (27.0-31.0); Mean Platelet Volume 9.4 fL (7.4-10.4); Nucleated Red Blood Cells % 0 %; Platelet Count 319 10^3/uL (130-400); Red Blood Cell Count 4.87 10^6/uL (4.20-5.40); Red Cell Dist. Width 13.8 % (11.5-14.5); White Blood Cell Count 10.5 10^3/uL (4.8-10.8)
[2024-04-14 12:10] LABS: ALT (SGPT) 21 U/L (0-35); AST (SGOT) 26 U/L (14-36); Albumin 4.4 g/dl (3.5-5.0); Alkaline Phosphatase 106 U/L (38-126); Blood Urea Nitrogen 15 mg/dl (7-17); Calcium 10.7 mg/dl (8.4-10.2); Carbon Dioxide 23 mmol/L (22-30); Chloride 103 mmol/L (98-107); Glucose 86 mg/dl (70-99); Potassium 4.9 mmol/L (3.5-5.1); Sodium 139 mmol/L (135-145); Total Bilirubin 0.6 mg/dl (0.2-1.3); Total Protein 7.1 g/dl (6.3-8.2); eGFR > 60.00
[2024-04-16 10:37] LABS: Intact PTH 72.1 pg/ml (13.6-85.8)
== END ==
LOC: REG 09:47
PROVIDERS: ATTENDING PHYSICIAN Emergency Medicine; OTHER PHYSICIAN Physician Assistant
DX: R73.03 Prediabetes (principal); E78.2 Mixed hyperlipidemia; E04.1 Nontoxic single thyroid nodule
CPT/HCPCS: 36415; 80053; 83970; 85025

== ENCOUNTER → 2024-11-17 09:57 | Outpatient (REF) | payer MEDICARE, SELFPAY ==
[2024-11-17 11:14] LABS: ALT (SGPT) 18 U/L (0-35); AST (SGOT) 18 U/L (14-36); Albumin 4.4 g/dl (3.5-5.0); Alkaline Phosphatase 79 U/L (38-126); Blood Urea Nitrogen 15 mg/dl (7-17); Calcium 10.2 mg/dl (8.4-10.2); Carbon Dioxide 27 mmol/L (22-30); Chloride 105 mmol/L (98-107); Glucose 89 mg/dl (70-99); HDL Cholesterol 38 mg/dl; LDL Cholesterol, Calculated 137 mg/dl; Potassium 5.1 mmol/L (3.5-5.1); Sodium 138 mmol/L (135-145); Total Protein 6.9 g/dl (6.3-8.2); Very Low Density Lipoprotein 46 mg/dl (0-30); eGFR > 60.00
[2024-11-17 12:12] LABS: Glycohemoglobin (HgbA1c) 5.3 % (4.0-5.6)
== END ==
LOC: REG 09:57
PROVIDERS: ATTENDING PHYSICIAN Family Medicine
DX: E66.01 Morbid (severe) obesity due to excess calories (principal); R73.03 Prediabetes; E78.2 Mixed hyperlipidemia
CPT/HCPCS: 36415; 80053; 80061; 83036

== ENCOUNTER → 2024-12-09 10:14 | Outpatient (REF) | payer MEDICARE, SELFPAY ==
--- NOTE | 2024-12-09 11:54 | CARDSERVLU ---
Echocardiogram with Lumason completed after protocol screening completed. Allergies verified.
Patent IV site: left AC
IV site flushed with 0.9% NaCl pre and post administration.
Diluted bolus method utilized to enhance visualization of ventricular quezada.
Total volume given: __6.0__ mL
Patient tolerated all procedures well without complications.
# 22 lloyd placed left AC. Lumason given. INT d/c'd. pressure held. No bleeding noted.
== END ==
LOC: RCS 10:14
PROVIDERS: ATTENDING PHYSICIAN Internal Medicine; FAMILY PHYSICIAN Family Medicine
DX: Z01.810 Encounter for preprocedural cardiovascular examination (principal); I10 Essential (primary) hypertension; R06.09 Other forms of dyspnea; E66.01 Morbid (severe) obesity due to excess calories
CPT/HCPCS: 93306; Q9950

== ENCOUNTER 2024-12-19 08:21 | Inpatient (IN) | payer MEDICARE, SELFPAY ==
--- NOTE | 2024-12-06 15:37 | CM ---
Demographics: patient lives at [facility]
Living situation: lives in independently liveing at [facility]
Support Person Post Operatively: None, patient plans to hire a TAX MANAGER CPA for assistance.
History of
VN: [facility]
SNF: , [facility], patient did not have a good experience and would prefer not to go back.
Outpatient: [facility]
Has patient purchased required equipment: yes
PCP: Dr. Rahman
Post Operative Discharge Plan: Home with TAX MANAGER CPA assistance, and outpatient [facility].
[2024-12-09 14:02] VITALS: BMI 40.3
[2024-12-09 14:35] LABS: Hematocrit 42.7 % (37.0-47.0); Hemoglobin 14.1 g/dL (12.0-16.0); Mean Corp Hgb Conc. 33.0 g/dL (33.0-37.0); Mean Corpuscular Volume 84.9 fL (81.0-99.0); Platelet Count 302 10^3/uL (130-400); Red Cell Dist. Width 14.0 % (11.5-14.5)
[2024-12-09 15:30] LABS: ALT (SGPT) 16 U/L (0-35); AST (SGOT) 19 U/L (14-36); Albumin 4.2 g/dl (3.5-5.0); Alkaline Phosphatase 79 U/L (38-126); Blood Urea Nitrogen 17 mg/dl (7-17); Calcium 10.1 mg/dl (8.4-10.2); Carbon Dioxide 23 mmol/L (22-30); Chloride 106 mmol/L (98-107); Estimated Creatinine Clearance 86 ml/min; Glucose 106 mg/dl (70-99); Potassium 4.5 mmol/L (3.5-5.1); Sodium 136 mmol/L (135-145); Total Protein 6.6 g/dl (6.3-8.2); eGFR > 60.00
[2024-12-10 09:18] LABS: Glycohemoglobin (HgbA1c) 5.3 % (4.0-5.6)
--- NOTE | 2024-12-12 14:19 | CM ---
CM received call from patient questioning the antibiotics Cefadroxil. She stated she has multiple allergies and wanted to confirm that she was 'OK' to take it. DAGO updated Janeth Burton with patient's questions.
[2024-12-19] VITALS (10 sets, daily range): BP systolic 110–139; BP diastolic 59–74; PULSE 80; O2SAT 92; BMI 40.3
--- NOTE | 2024-12-19 07:32 | W.PN.ORTHO ---
Today's Communication / Plan
-
d/c when stable
Assessment
.
Dressing:
Clean, dry and intact.
Assessment:
DvT ppx-increasd risk of clot due to morbid obesity,peripheral edama in setting of knee replacement-advised Eliquis also due to severe GERD secondary to ASA-patient now refusing Eliquis -will discuss full dose ASA + SCD for home use
Morbid obesity-BMI 40.2
Borderline DM
-Clinda abx ppx OP due to allergy
Balance and gait disturbance
-fall precautions
Plan
.
Surgery / Date: L TKA Dr Wong
DVT Prophylaxis: Aspirin (+ SCD)
Activity:
Out of bed.
PT/OT
Discharge Plan: Home w/ VN
Vital Signs and Labs
.
Vital Signs and Labs:
Lab Results
12/09/24 13:01
12/09/24 13:01
[2024-12-19] MEDS: NORMOSOL-R/PLASMALYTE-A 1000 IV ×2 (08:39→13:31)
[2024-12-19] MEDS: CELEBREX 200 MG PO (08:39)
[2024-12-19] MEDS: TYLENOL 650 MG PO ×5 (08:39→23:00)
--- NOTE | 2024-12-19 09:46 | W.DS.TRANS ---
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
-
Discharge Instructions:
Discharge Diagnosis/Procedures L TKA Dr Wong 12/19/24
Diet Diabetic, Carb Controlled
Activity With Walker
Additional Activity SCD/VENOUS COMPRESSION/PLASMA FLOW DEVICE AT ALL
TIMES WHEN SITTING OR SLEEPING-FREQUENT
AMBULATION
Driving Restrictions No driving
Bathing Restrictions OK to Shower
Other Services VN,PT,OT
Instructions:
Stand-Alone Forms: Total Hip/Knee Replacement D/C
Changes to Home Medications: Yes
Discharge Medications:
DC Medications w/original date entered in [employer]
alirocumab 75 mg/mL subcutaneous pen injector (Praluent Pen) 75 mg SC Q2W Autoimmune Disorder 05/22/23
cholecalciferol (vitamin D3) 25 mcg (1,000 unit) tablet (Vitamin D3) 50 mcg PO DAILY Supplement 05/22/23
ezetimibe 10 mg tablet 10 mg PO HS High Cholesterol 05/22/23
sertraline 50 mg tablet 50 mg PO HS Mental Health/Anxiety 05/22/23
vibegron 75 mg tablet (Gemtesa) 75 mg PO DAILY OVERACTIVE BLADDER 05/22/23
calcium 600 mg (as carbonate)-vit D3 20 mcg (800 unit) chewable tablet (Caltrate plus D) 1 tab PO MOWEFR 12/08/24
multivitamin-ferrous fumarate-folic acid 18 mg-400 mcg tablet (Women's Daily Multivitamin) 1 tab PO Q48H 12/08/24
semaglutide 2 mg/dose (8 mg/3 mL) subcutaneous pen injector (Ozempic) 2 mg SC SA 12/08/24
dexamethasone 4 mg tablet 4 mg PO BID inflammation #6 tabs 12/09/24
gabapentin 300 mg capsule 300 mg PO HS sleep/pain #10 caps 12/09/24
mupirocin 2 % topical ointment 1 applic topical BID infection prevention #1 tube 12/09/24
ondansetron 4 mg disintegrating tablet 4 mg PO Q6H PRN n/v #20 tabs 12/09/24
oxycodone 5 mg tablet 5 mg PO Q6H PRN 1 tab moderate pain, 2 tabs severe pain #30 tabs 12/09/24
clindamycin HCl 300 mg capsule 300 mg PO QID Infection #20 caps 12/12/24
Saccharomyces boulardii 250 mg capsule (Florastor) 250 mg PO BID #1 cap 12/19/24
acetaminophen 650 mg tablet,extended release 1,300 mg (2 x 650 mg) PO TID #0 tabs 12/19/24
aspirin 325 mg tablet 325 mg PO DAILY blood clot prevention #1 tab 12/19/24
calcium carbonate (Tums) 300 mg PO PRN PRN stomach upset 12/19/24
carboxymethylcellulose sodium 0.5 % eye drops (Refresh Tears) 2 drp ophthalmic (eye) BID PRN dry eyes 12/19/24
docusate sodium 100 mg capsule (Colace) 100 mg PO BID #0 caps 12/19/24
losartan 50 mg tablet 50 mg PO HS Blood Pressure #0 tabs 12/19/24
magnesium hydroxide 400 mg/5 mL oral suspension (Milk of Magnesia) 30 ml PO HS PRN constipation #1 mL 12/19/24
menthol 5 % topical gel (Biofreeze (menthol)) 1 ea topical PRN PRN back pain 12/19/24
omeprazole 20 mg capsule,delayed release 20 mg PO BID GERD #0 caps 12/19/24
sennosides 8.6 mg tablet (Senokot) 17.2 mg (2 x 8.6 mg) PO BID laxative #2 tabs 12/19/24
Home Medication Changes
dexamethasone 4 mg tablet 4 mg PO BID inflammation #6 tabs 12/09/24
gabapentin 300 mg capsule 300 mg PO HS sleep/pain #10 caps 12/09/24
mupirocin 2 % topical ointment 1 applic topical BID infection prevention #1 tube 12/09/24
ondansetron 4 mg disintegrating tablet 4 mg PO Q6H PRN n/v #20 tabs 12/09/24
oxycodone 5 mg tablet 5 mg PO Q6H PRN 1 tab moderate pain, 2 tabs severe pain #30 tabs 12/09/24
clindamycin HCl 300 mg capsule 300 mg PO QID Infection #20 caps 12/12/24
Saccharomyces boulardii 250 mg capsule (Florastor) 250 mg PO BID #1 cap 12/19/24
acetaminophen 650 mg tablet,extended release 1,300 mg (2 x 650 mg) PO TID #0 tabs 12/19/24
aspirin 325 mg tablet 325 mg PO DAILY blood clot prevention #1 tab 12/19/24
calcium carbonate (Tums) 300 mg PO PRN PRN stomach upset 12/19/24
carboxymethylcellulose sodium 0.5 % eye drops (Refresh Tears) 2 drp ophthalmic (eye) BID PRN dry eyes 12/19/24
docusate sodium 100 mg capsule (Colace) 100 mg PO BID #0 caps 12/19/24
losartan 50 mg tablet 50 mg PO HS Blood Pressure #0 tabs 12/19/24
magnesium hydroxide 400 mg/5 mL oral suspension (Milk of Magnesia) 30 ml PO HS PRN constipation #1 mL 12/19/24
menthol 5 % topical gel (Biofreeze (menthol)) 1 ea topical PRN PRN back pain 12/19/24
omeprazole 20 mg capsule,delayed release 20 mg PO BID GERD #0 caps 12/19/24
sennosides 8.6 mg tablet (Senokot) 17.2 mg (2 x 8.6 mg) PO BID laxative #2 tabs 12/19/24
Pending Results: No
[2024-12-19] MEDS: ROXICODONE 5 MG PO ×2 (12:25→17:41)
--- NOTE | 2024-12-19 14:08 | PTCARENOTE ---
1300 Pt arrived in bed from PACU. Pt AAOX3. VSS. 100% on 2L NC. Neurovascular checks with in normal limits. Primaseal with scant old drainage. Oriented to room and call corey. Bed locked and in lowest position.
[2024-12-19] MEDS: ANCEF 5 IV ×2 (15:52→23:00)
[2024-12-19] MEDS: DECADRON 4 MG IV ×2 (17:36→19:26)
[2024-12-19] MEDS: ASPIRIN 325 MG PO (17:36)
[2024-12-19] MEDS: TORADOL 15 MG IV (19:27)
[2024-12-19] MEDS: SENOKOT 17.2 MG PO (19:27)
[2024-12-19] MEDS: COLACE 100 MG PO (19:27)
[2024-12-19] MEDS: BACTROBAN 2% OINTMENT 1 APPLIC NASAL (19:28)
[2024-12-19] MEDS: ZETIA 10 MG PO (22:56)
[2024-12-19] MEDS: PROTONIX 40 MG PO (22:56)
[2024-12-19] MEDS: NEURONTIN 300 MG PO (22:56)
[2024-12-19] MEDS: COZAAR 25 MG PO (22:56)
[2024-12-19] MEDS: ZOLOFT 50 MG PO (22:56)
[2024-12-20 03:03] VITALS: BP 95/53
[2024-12-20] MEDS: TYLENOL 650 MG PO ×3 (04:46→12:02)
[2024-12-20 07:25] VITALS: BP 110/64
[2024-12-20] MEDS: ASPIRIN 325 MG PO (08:00)
[2024-12-20] MEDS: SENOKOT 17.2 MG PO (08:00)
[2024-12-20] MEDS: TORADOL 15 MG IV (08:01)
[2024-12-20] MEDS: DECADRON 4 MG IV (08:01)
[2024-12-20] MEDS: COLACE 100 MG PO (08:01)
[2024-12-20] MEDS: BACTROBAN 2% OINTMENT 1 APPLIC NASAL (08:02)
[2024-12-20 09:30] VITALS: BP 116/71; PULSE 72; O2SAT 96
[2024-12-20 10:02] VITALS: BP 116/68; PULSE 81
--- NOTE | 2024-12-20 10:08 | CM ---
Cm met with patient and daughter in room. Patient will have home [facility]. [facility] IMM signed[facility]
--- NOTE | 2024-12-20 10:41 | W.DS.TRANS ---
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
-
Discharge Instructions:
Discharge Diagnosis/Procedures L TKA Dr Wong 12/19/24
Diet Diabetic, Carb Controlled
Activity With Walker
Additional Activity SCD/VENOUS COMPRESSION/PLASMA FLOW DEVICE AT ALL
TIMES WHEN SITTING OR SLEEPING-FREQUENT
AMBULATION
Driving Restrictions No driving
Bathing Restrictions OK to Shower
Other Services VN,PT,OT
Instructions:
Stand-Alone Forms: Total Hip/Knee Replacement D/C
Changes to Home Medications: Yes
Discharge Medications:
DC Medications w/original date entered in [employer]
alirocumab 75 mg/mL subcutaneous pen injector (Praluent Pen) 75 mg SC Q2W Autoimmune Disorder 05/22/23
cholecalciferol (vitamin D3) 25 mcg (1,000 unit) tablet (Vitamin D3) 50 mcg PO DAILY Supplement 05/22/23
ezetimibe 10 mg tablet 10 mg PO HS High Cholesterol 05/22/23
sertraline 50 mg tablet 50 mg PO HS Mental Health/Anxiety 05/22/23
vibegron 75 mg tablet (Gemtesa) 75 mg PO DAILY OVERACTIVE BLADDER 05/22/23
calcium 600 mg (as carbonate)-vit D3 20 mcg (800 unit) chewable tablet (Caltrate plus D) 1 tab PO MOWEFR Supplement 12/08/24
multivitamin-ferrous fumarate-folic acid 18 mg-400 mcg tablet (Women's Daily Multivitamin) 1 tab PO Q48H Supplement 12/08/24
semaglutide 2 mg/dose (8 mg/3 mL) subcutaneous pen injector (Ozempic) 2 mg SC SA WEIGHT LOSS 12/08/24
dexamethasone 4 mg tablet 4 mg PO BID inflammation #6 tabs 12/09/24
gabapentin 300 mg capsule 300 mg PO HS sleep/pain #10 caps 12/09/24
mupirocin 2 % topical ointment 1 applic topical BID infection prevention #1 tube 12/09/24
ondansetron 4 mg disintegrating tablet 4 mg PO Q6H PRN n/v #20 tabs 12/09/24
oxycodone 5 mg tablet 5 mg PO Q6H PRN 1 tab moderate pain, 2 tabs severe pain #30 tabs 12/09/24
clindamycin HCl 300 mg capsule 300 mg PO QID Infection #20 caps 12/12/24
Saccharomyces boulardii 250 mg capsule (Florastor) 250 mg PO BID #1 cap 12/19/24
acetaminophen 650 mg tablet,extended release 1,300 mg (2 x 650 mg) PO TID #0 tabs 12/19/24
calcium carbonate (Tums) 300 mg PO PRN PRN stomach upset 12/19/24
carboxymethylcellulose sodium 0.5 % eye drops (Refresh Tears) 2 drp ophthalmic (eye) BID PRN dry eyes 12/19/24
docusate sodium 100 mg capsule (Colace) 100 mg PO BID #0 caps 12/19/24
losartan 50 mg tablet 50 mg PO HS Blood Pressure #0 tabs 12/19/24
magnesium hydroxide 400 mg/5 mL oral suspension (Milk of Magnesia) 30 ml PO HS PRN constipation #1 mL 12/19/24
menthol 5 % topical gel (Biofreeze (menthol)) 1 ea topical PRN PRN back pain 12/19/24
omeprazole 20 mg capsule,delayed release 20 mg PO BID GERD #0 caps 12/19/24
sennosides 8.6 mg tablet (Senokot) 17.2 mg (2 x 8.6 mg) PO BID laxative #2 tabs 12/19/24
apixaban 2.5 mg tablet (Eliquis) 2.5 mg PO BID Blood clot prevention/tx #90 tabs 12/20/24
Home Medication Changes
dexamethasone 4 mg tablet 4 mg PO BID inflammation #6 tabs 12/09/24
gabapentin 300 mg capsule 300 mg PO HS sleep/pain #10 caps 12/09/24
mupirocin 2 % topical ointment 1 applic topical BID infection prevention #1 tube 12/09/24
ondansetron 4 mg disintegrating tablet 4 mg PO Q6H PRN n/v #20 tabs 12/09/24
oxycodone 5 mg tablet 5 mg PO Q6H PRN 1 tab moderate pain, 2 tabs severe pain #30 tabs 12/09/24
clindamycin HCl 300 mg capsule 300 mg PO QID Infection #20 caps 12/12/24
Saccharomyces boulardii 250 mg capsule (Florastor) 250 mg PO BID #1 cap 12/19/24
acetaminophen 650 mg tablet,extended release 1,300 mg (2 x 650 mg) PO TID #0 tabs 12/19/24
docusate sodium 100 mg capsule (Colace) 100 mg PO BID #0 caps 12/19/24
losartan 50 mg tablet 50 mg PO HS Blood Pressure #0 tabs 12/19/24
magnesium hydroxide 400 mg/5 mL oral suspension (Milk of Magnesia) 30 ml PO HS PRN constipation #1 mL 12/19/24
sennosides 8.6 mg tablet (Senokot) 17.2 mg (2 x 8.6 mg) PO BID laxative #2 tabs 12/19/24
apixaban 2.5 mg tablet (Eliquis) 2.5 mg PO BID Blood clot prevention/tx #90 tabs 12/20/24
Pending Results: No
[2024-12-20 11:10] VITALS: BP 107/68
--- NOTE | 2024-12-20 14:48 | W.PN.ORTHO ---
Today's Communication / Plan
-
d/c
Assessment
.
Distal Motor Intact: Yes
Dressing:
Clean, dry and intact.
Assessment:
DvT ppx-increasd risk of clot due to morbid obesity,peripheral edama in setting of knee replacement-advised Eliquis +SCD-patient now agreeable.
Morbid obesity-BMI 40.2
Borderline DM
-Clinda abx ppx OP due to allergy
Balance and gait disturbance
-fall precautions
Plan
.
Surgery / Date: L TKA Dr Wong
DVT Prophylaxis: Other (Eliquis + SCD)
Activity:
Out of bed.
PT/OT
Discharge Plan: Home w/ VN (PT/OT TREVINO)
Subjective
.
.:
Patient resting comfortably.
Vital Signs and Labs
.
Vital Signs and Labs:
Lab Results
12/09/24 13:01
12/09/24 13:01
Temp Pulse Resp BP Pulse Ox
98.5 F 82 16 107/68 93
12/20/24 11:10 12/20/24 11:10 12/20/24 11:10 12/20/24 11:10 12/20/24 11:10
Non-invasive Hgb result: 13.8
Physical Exam
-
HEENT: No pallor, cyanosis, or jaundice. Throat clear.
NECK: Supple. No JVD.
RESPIRATORY: Lungs clear to auscultation.
CVS: S1, S2 normal. RRR.� No murmur, rub or gallop.
ABDOMEN: Soft, non-tender. No distension. BS+/normal.
EXTREMITIES: strength equal, no calf pain with palpation
GAME DESIGNER: AOx3. No focal deficits. superintendent electric power grossly intact
== END 2024-12-20 12:30 | disposition home or self-care (01) | DRG 470 ==
LOC: 2 SOUTH 08:21
PROVIDERS: ADMITTING PHYSICIAN Specialist; FAMILY PHYSICIAN Family Medicine
PROC: 0SRD0J9 Replacement of Left Knee Joint with Synthetic Substitute, Cemented, Open Approach (ICD-10-PCS; 2024-12-19)
DX: M17.12 Unilateral primary osteoarthritis, left knee (principal); Z68.41 Body mass index [BMI] 40.0-44.9, adult; E66.01 Morbid (severe) obesity due to excess calories; I10 Essential (primary) hypertension; E78.5 Hyperlipidemia, unspecified; R60.0 Localized edema; R06.09 Other forms of dyspnea; G47.33 Obstructive sleep apnea (adult) (pediatric); E11.36 Type 2 diabetes mellitus with diabetic cataract; E04.1 Nontoxic single thyroid nodule; F32.A Depression, unspecified; F41.9 Anxiety disorder, unspecified; R33.8 Other retention of urine; K21.9 Gastro-esophageal reflux disease without esophagitis; M51.369 Other intervertebral disc degeneration, lumbar region without mention of lumbar back pain or lower extremity pain; M48.00 Spinal stenosis, site unspecified; Z60.2 Problems related to living alone; Z88.1 Allergy status to other antibiotic agents; Z88.0 Allergy status to penicillin; Z91.048 Other nonmedicinal substance allergy status; Z85.3 Personal history of malignant neoplasm of breast; Z91.199 Patient's noncompliance with other medical treatment and regimen due to unspecified reason; Z79.01 Long term (current) use of anticoagulants; Z90.710 Acquired absence of both cervix and uterus
CPT/HCPCS: 36415; 73560; 80053; 83036; 85027; 87070; 97110; 97162; 97166; 97530; 97535; C1713; C1776

== ENCOUNTER 2024-12-25 22:16 | Inpatient (IN) | payer MEDICARE, SELFPAY ==
[2024-12-25] VITALS (7 sets, daily range): BP systolic 123–146; BP diastolic 59–74; BMI 41.7
--- NOTE | 2024-12-25 16:25 | ED.GENMED ---
History of Present Illness
<WOLFGANG Jordan - Last Filed: 12/25/24 21:55>
General
Chief Complaint: Weakness
Source: patient
Exam Limitations: none
Time Seen by Provider: 12/25/24 16:16
Nursing documentation reviewed up to this point in time: agreed with
History of Present Illness
History of Present Illness:
74-year-old female past medical history of hypertension hyperlipidemia diverticulosis partial parathyroidectomy breast cancer presents to the ER for evaluation. She is status post total left knee replacement on Thursday by DR Wong. As per
daughter she was kept overnight had a nerve block and did fine walking into her house with a walker up a ramp however patient has had increasingly worsening pain in her left knee now not able to even move or transfer. She is on Eliquis. She denies
any fever or chills. Her last dose of oxycodone was around 10 am. She took 2/3 or a 5 mg tablet. Patient denies any injury however daughter reports she forcefully will flop her self in to her chair putting pressure on her knee.
Phy Exam
<WOLFGANG Jordan - Last Filed: 12/25/24 21:55>
General Physical Exam
General Presentation: no apparent distress
General age: appears stated age
General Skin: warm and dry
General Habitus: obese
General Mental: alert
General Hydration: appears well hydrated
Neurological Exam
Neurological Exam: alert and oriented x3
Musculoskeletal Exam
Musculoskeletal Exam: other (Left lower extremity with vertical intact surgical dressing in place scattered ecchymosis to the thigh knee and lower leg with swelling. Normal sensation ;pain with any range of motion to the knee)
Skin Exam
Skin Exam: normal color and warm/dry
Psychiatric Exam
Psychiatric Exam: normal mood/affect
Course
<WOLFGANG Jordan - Last Filed: 12/25/24 21:55>
Orders/Labs/Results
Orders:
Orders
12/25/24 16:32
IV Insert/Care/Rem.- Treatment PRN
Morphine Sulfate 4 mg IV NOW STA
12/25/24 16:45
Basic Metabolic Panel Urgent
Complete Blood Count/With Diff Urgent
12/25/24 17:03
Urinalysis Reflex To Culture Urgent
12/25/24 17:11
Acetaminophen [Tylenol] 1,000 mg PO NOW STA
Ketorolac [Toradol] 15 mg IV NOW STA
12/25/24 17:56
CR Knee - Left 1 Or 2 Views Urgent
Reason For Exam: pain s/p TKR
12/25/24 17:57
Venous Doppler Lwr Ext Left [US Periph Venous LOWER Ext LT] Urgent
Comment:
Reason For Exam: s/p knee replacement
12/25/24 18:42
HYDROmorphone [Dilaudid] 1 mg IV NOW STA
12/25/24 21:03
CT Lower Ext W/o Iv Cont Lt Urgent
Comment:
Reason For Exam: pain s/p kne replacement
12/25/24 21:11
Knee Immobilizer Left-Treatmen ONCE
12/25/24 21:28
HYDROmorphone [Dilaudid] 1 mg IV NOW STA
12/25/24 21:53
Admit/Transfer Patient As Directed
Co-Sign Provider:
Level of Care: Inpatient admission
Assign to:: Medical/Surgical
Physician / Group: Nico Stout
Diagnosis: Distal femur fracture
Reason for Hospitalization: Distal femur fracture
Expected length of stay greater than two midnights?: Yes
ELOS- Estimated Length of Stay in days: 3
I certify the patient meets the requirements for IP care: Yes
PRN Pain Medication Management As Directed
May give lesser potent ordered pain med per pt: Yes
preference::
Protocol:: Medication orders for pain may be administered in a
manner that supports deferring to patient preference
when the pt is:
- Requesting an ordered lesser potent pain medication.
Least to most potent pain medications are defined
as: acetaminophen < NSAID < tramadol < opioids
(morphine, oxycodone, hydromorphone).
- Requesting a lesser dose of the same medication IF
ORDERED.
- Requesting a less intrusive route of administration
if both routes are prescribed by the provider (PO <
IV).
12/25/24 21:56
Code Status As Directed
Resuscitation Status: Full Code
12/25/24 22:31
Potassium Urgent
12/25/24 23:53
Carboxymethylcellulose [Refresh Celluvisc Gel] 2 drops OPHTH BID PRN
HYDROmorphone [Dilaudid] 0.5 mg IV Q4HPRN PRN
Oxycodone [Roxicodone] 5 mg PO Q4HPRN PRN
Sertraline HCl [Zoloft] 50 mg PO HS
12/25/24 23:53
Activity As Directed
Activity Level: As Tolerated
Pneumatic Compression Sleeves As Directed
Type: Knee high
Vital Signs As Directed
Frequency: Per unit guidelines
Weight As Directed
Frequency: Once
Comment: on admission
DX Deep Vein Thrombosis Video Routine
12/26/24 00:00
Ezetimibe [Zetia] 10 mg PO HS
Losartan [Cozaar] 50 mg PO HS
12/26/24 Breakfast
NPO
Allow oral meds: Yes
Allow clear liquids: No
Basic Metabolic Panel IN AM
Complete Blood Count/No Diff IN AM
12/26/24 08:00
Docusate Sodium [Colace] 100 mg PO BID
Mupirocin [Bactroban 2% Ointment] 1 applic TOPICAL BID
Pantoprazole [Protonix] 40 mg PO BID
vibegron [Gemtesa] 75 mg PO DAILY
Abnormal Lab Results
12/25/24
16:45
WBC 17.4 H 10^3/uL
(4.8-10.8)
Hct 36.8 L %
(37.0-47.0)
RDW 14.6 H %
(11.5-14.5)
Abs Immat Gran (auto) 0.3 H 10^3/uL
(0-0.05)
Absolute Neuts (auto) 11.7 H 10^3/uL
(1.4-6.5)
Absolute Lymphs (auto) 4.1 H 10^3/uL
(1.2-3.4)
Absolute Monos (auto) 1.2 H 10^3/uL
(0.1-0.6)
Immature Gran % 1.4 H %
(0-0.5)
Sodium 134 L mmol/L
(135-145)
Creatinine 0.5 L mg/dL
(0.6-1.0)
12/25/24 16:45
12/25/24 16:45
Vital Signs
Initial and Last Documented VS:
Initial Vital Signs
Temp Pulse Resp BP Pulse Ox
98.0 F 88 18 124/72 93
12/25/24 14:57 12/25/24 14:57 12/25/24 14:57 12/25/24 14:57 12/25/24 14:57
Last Documented Vital Signs
Temp Pulse Resp BP Pulse Ox
98.0 F 77 16 156/86 95
12/26/24 00:01 12/26/24 00:31 12/26/24 00:01 12/26/24 00:31 12/26/24 00:01
Cook Vegetable consulted with Physician
Cook Vegetable consulted with physician?: Yes
Name of Physician Consulted: micah
<Gordon Lehman MD - Last Filed: 12/26/24 00:40>
Orders/Labs/Results
Orders:
Orders
12/25/24 16:32
IV Insert/Care/Rem.- Treatment PRN
Morphine Sulfate 4 mg IV NOW STA
12/25/24 16:45
Basic Metabolic Panel Urgent
Complete Blood Count/With Diff Urgent
12/25/24 17:03
Urinalysis Reflex To Culture Urgent
12/25/24 17:11
Acetaminophen [Tylenol] 1,000 mg PO NOW STA
Ketorolac [Toradol] 15 mg IV NOW STA
12/25/24 17:56
CR Knee - Left 1 Or 2 Views Urgent
Reason For Exam: pain s/p TKR
12/25/24 17:57
Venous Doppler Lwr Ext Left [US Periph Venous LOWER Ext LT] Urgent
Comment:
Reason For Exam: s/p knee replacement
12/25/24 18:42
HYDROmorphone [Dilaudid] 1 mg IV NOW STA
12/25/24 21:03
CT Lower Ext W/o Iv Cont Lt Urgent
Comment:
Reason For Exam: pain s/p kne replacement
12/25/24 21:11
Knee Immobilizer Left-Treatmen ONCE
12/25/24 21:28
HYDROmorphone [Dilaudid] 1 mg IV NOW STA
12/25/24 21:53
Admit/Transfer Patient As Directed
Co-Sign Provider:
Level of Care: Inpatient admission
Assign to:: Medical/Surgical
Physician / Group: Nico Stout
Diagnosis: Distal femur fracture
Reason for Hospitalization: Distal femur fracture
Expected length of stay greater than two midnights?: Yes
ELOS- Estimated Length of Stay in days: 3
I certify the patient meets the requirements for IP care: Yes
PRN Pain Medication Management As Directed
May give lesser potent ordered pain med per pt: Yes
preference::
Protocol:: Medication orders for pain may be administered in a
manner that supports deferring to patient preference
when the pt is:
- Requesting an ordered lesser potent pain medication.
Least to most potent pain medications are defined
as: acetaminophen < NSAID < tramadol < opioids
(morphine, oxycodone, hydromorphone).
- Requesting a lesser dose of the same medication IF
ORDERED.
- Requesting a less intrusive route of administration
if both routes are prescribed by the provider (PO <
IV).
12/25/24 21:56
Code Status As Directed
Resuscitation Status: Full Code
12/25/24 22:31
Potassium Urgent
12/25/24 23:53
Carboxymethylcellulose [Refresh Celluvisc Gel] 2 drops OPHTH BID PRN
HYDROmorphone [Dilaudid] 0.5 mg IV Q4HPRN PRN
Oxycodone [Roxicodone] 5 mg PO Q4HPRN PRN
Sertraline HCl [Zoloft] 50 mg PO HS
12/25/24 23:53
Activity As Directed
Activity Level: As Tolerated
Pneumatic Compression Sleeves As Directed
Type: Knee high
Vital Signs As Directed
Frequency: Per unit guidelines
Weight As Directed
Frequency: Once
Comment: on admission
DX Deep Vein Thrombosis Video Routine
12/26/24 00:00
Ezetimibe [Zetia] 10 mg PO HS
Losartan [Cozaar] 50 mg PO HS
12/26/24 Breakfast
NPO
Allow oral meds: Yes
Allow clear liquids: No
Basic Metabolic Panel IN AM
Complete Blood Count/No Diff IN AM
12/26/24 08:00
Docusate Sodium [Colace] 100 mg PO BID
Mupirocin [Bactroban 2% Ointment] 1 applic TOPICAL BID
Pantoprazole [Protonix] 40 mg PO BID
vibegron [Gemtesa] 75 mg PO DAILY
Abnormal Lab Results
12/25/24
16:45
WBC 17.4 H 10^3/uL
(4.8-10.8)
Hct 36.8 L %
(37.0-47.0)
RDW 14.6 H %
(11.5-14.5)
Abs Immat Gran (auto) 0.3 H 10^3/uL
(0-0.05)
Absolute Neuts (auto) 11.7 H 10^3/uL
(1.4-6.5)
Absolute Lymphs (auto) 4.1 H 10^3/uL
(1.2-3.4)
Absolute Monos (auto) 1.2 H 10^3/uL
(0.1-0.6)
Immature Gran % 1.4 H %
(0-0.5)
Sodium 134 L mmol/L
(135-145)
Creatinine 0.5 L mg/dL
(0.6-1.0)
12/25/24 16:45
12/25/24 16:45
Vital Signs
Initial and Last Documented VS:
Initial Vital Signs
Temp Pulse Resp BP Pulse Ox
98.0 F 88 18 124/72 93
12/25/24 14:57 12/25/24 14:57 12/25/24 14:57 12/25/24 14:57 12/25/24 14:57
Last Documented Vital Signs
Temp Pulse Resp BP Pulse Ox
98.0 F 77 16 156/86 95
12/26/24 00:01 12/26/24 00:31 12/26/24 00:01 12/26/24 00:31 12/26/24 00:01
<WOLFGANG Jordan - Last Filed: 12/25/24 21:55>
MDM/Problems Addressed
Differential Diagnosis Includes:
not limited to post operative pain,fracture, DVT
MDM/Problems Addressed:
Patient is a 74-year-old female status post knee replacement by Dr. Wong on Thursday presents with increasing pain to left knee no trauma however patient forcefully will sit in a chair putting pressure on her knee at home. Patient presents with
obvious swelling to the left knee with ecchymosis dressing intact no real fevers. X-ray concerning for distal femur fracture patient has strong pulses patient was medicated for pain .
Case discussed with ED physician. Case discussed with orthopedics ultrasound negative. . CAT scan ordered as requested by orthopedic. Will place in immobilizer patient will require admission to the hospital service
Patient was eval by Dr. Arndt
Chronic conditions affecting care:
Recent knee replacement on [facility]
<WOLFGANG Jordan - Last Filed: 12/25/24 21:55>
*Radiology
Radiology exam reviewed: preliminary read by ED provider (X-ray shows a distal femur) and radiology read reviewed (Distal femur fracture)
*Pulse Oximetry
SaO2: 97
Oxygen Mode of Delivery: Room air
Patient hypoxic: no
*Critical Care Note
Total Time (30-74mins, 75-104mins- exclusive of procedures): Not Applicable
<WOLFGANG Jordan - Last Filed: 12/25/24 21:55>
Patient Management
Discussion with other providers: Banner Painter (Dr. Arndt)
ED Attending Note
<WOLFGANG Jordan - Last Filed: 12/25/24 21:55>
-
Portions of this chart may have been created with voice recognition software.� Occasional wrong word or��sound alike� substitutions may have occurred due to the inherent limitations of voice recognition software.
<Gordon Lehman MD - Last Filed: 12/26/24 00:40>
ED Attending Note
Patient seen and examined by attending physician: Yes
ED Attending Note:
Patient status post elective outpatient left total knee replacement [address] Wong, presents ED secondary to worsening knee pain with swelling over the past 48 hours, making it difficult for her to ambulate, even with assistance and use
of walker. Denies fever or chills. Denies new trauma. Denies loss of sensation or weakness. Patient had been taking oxycodone with relief in symptoms. Patient is currently taking Eliquis prophylactically.
Physical Exam
General: moderate painful distress, not acutely ill. afebrile
Head: nc/at. eomi
Neck: supple. normal range of motion
Abdomen: normal bowel sounds. not tender.
Neuro: alert and oriented x 3. no focal neurological deficits
Skin: no rash
Psychiatric: well kept. interactive and cooperative
Extremities: left knee: moderate swelling wtih diffuse tenderness to palpation, along with resolving ecchymosis. no warmth to touch.
Pt will be treated symptomatically with medication and reassessed. Mild leukocytosis noted, likely reactive, as patient does not have any evidence of focal infection. Pt has been eating normally and drinking fluids upon discharge.
Pt will require further evaluation and treatment, due to continual pain. beater engineer helper orthopaedic surgeon, , notified via [employer]
X-ray report reviewed with Dr. Arndt, who request CT LE
Discharge Plan
Departure
Patient Disposition: Admit
Date of Disposition: 12/25/24
Time of Disposition: 21:21
Admit to: Med/Surg
Admit to doctor: hospitaist
Presentation/result/management discussed w/ accepting MD/DO: Hospitalist
Patient with high blood pressure during this ER visit?: Yes
Condition: Fair
Covid-19: Not Applicable
Discharge Problem:
distal femur fracture
Interventions
Interventions:
*Risk Screen - Suicide Last Done: 12/26/24 00:00
*General Assessment Last Done: 12/25/24 14:57
*Neglect/Abuse Screening Last Done: 12/25/24 14:57
*ED- Fall Risk Assessment Last Done: 12/25/24 14:57
*ED COVID-19 Vaccine History Last Done: 12/26/24 00:00
*Nursing Disposition Last Done: 12/26/24 00:15
ED- Cardiac Assessment Last Done: 12/25/24 15:36
ED- Neurological Assessment Last Done: 12/25/24 15:36
ED- Pulmonary Assessment Last Done: 12/25/24 15:36
Discharge Date and Time
Discharge Date/Time: 12/26/24 00:15
[2024-12-25] MEDS: MORPHINE SULFATE 4 MG IV (16:42)
[2024-12-25 16:53] LABS: Hematocrit 36.8 % (37.0-47.0); Hemoglobin 12.5 g/dL (12.0-16.0); Mean Corp Hgb Conc. 34.0 g/dL (33.0-37.0); Mean Corpuscular Volume 85.4 fL (81.0-99.0); Nucleated Red Blood Cells % 0 %; Platelet Count 296 10^3/uL (130-400); Red Cell Dist. Width 14.6 % (11.5-14.5)
[2024-12-25 17:08] LABS: Blood Urea Nitrogen 15 mg/dl (7-17); Calcium 9.1 mg/dl (8.4-10.2); Carbon Dioxide 22 mmol/L (22-30); Chloride 105 mmol/L (98-107); Estimated Creatinine Clearance 88 ml/min; Glucose 94 mg/dl (70-99); Sodium 134 mmol/L (135-145); eGFR > 60.00
[2024-12-25] MEDS: TORADOL 15 MG IV (17:16)
[2024-12-25] MEDS: TYLENOL 1000 MG PO (17:16)
[2024-12-25] MEDS: DILAUDID 1 MG IV ×3 (18:50→22:29)
--- NOTE | 2024-12-25 21:22 | HPS.HSE ---
Family Physician
-
Family Physician: Gema Rahman
Chief Complaint
-
increased left knee pain
History of Present Illness
Patient is a 74-year-old female with past medical history significant for hypertension, depression/anxiety and overactive bladder who presented to [facility] ED for evaluation of increased left knee pain. Patient reports left knee replacement with
Judith on Thursday, she reports she has been doing ok since she was discharged home. She had manageable pain up until today when she had severe pain to the left knee with increased weakness where she felt her left leg was unable to hold her up.
Patient reports severe pain continues with with ROM and now has edema and ecchymosis since this afternoon. Patient denies any trauma to the knee. Daughter reported to ED staff that patient will forecefully 'flop' into chair when going to sit down.
Patient denies any fever, chills, cough, shortness of breath, nausea, vomiting, constipation or diarrhea.
Medical History
Past Medical History
Past Medical History: Reports Other
Additional Past Medical History:
Hypertension
Morbid Obesity
Overactive Bladder
Hyperparathyroidism
Anxiety / Depression
Umbilical Hernia
DJD
Right Breast Cancer s/p Lumpectomy and Hormone therapy
Past Surgical History: Reports Other
Additional Past Surgical History:
Right Lumpectomy
Parathyroidectomy
Cataracts
Right Knee Arthroscopy
Right Carpal Tunnel Surgery
Left Knee Arthroscopy
Social History
Tobacco: Non-smoker
Alcohol: None
Drug: None
Living: Alone
Employment: Retired
Family History
Family History: Other (Sister: DM; Mother: dementia; Father: CAD )
Allergies / Home Medications
Allergies reflects when Allergies were last updated in [employer].
Home Medications with original date entered in [facility]
Allergy/Medication List:
Allergies
Allergy/AdvReac Type Severity Reaction Status Date / Time
adhesive tape Allergy Rash Verified 12/25/24 15:05
amoxicillin Allergy Hives Verified 12/25/24 15:05
Cephalosporins Allergy Hives Verified 12/25/24 15:05
nitrofurantoin (From Allergy Severe Verified 12/25/24 15:05
Macrobid) Dehydration,
diarrhea,
vomiting
Penicillins Allergy Hives Verified 12/25/24 15:05
Home Medications
alirocumab 75 mg/mL subcutaneous pen injector (Praluent Pen) 75 mg SC Q2W Autoimmune Disorder 05/22/23
ezetimibe 10 mg tablet 10 mg PO HS High Cholesterol 05/22/23
sertraline 50 mg tablet 50 mg PO HS Mental Health/Anxiety 05/22/23
vibegron 75 mg tablet (Gemtesa) 75 mg PO DAILY OVERACTIVE BLADDER 05/22/23
multivitamin-ferrous fumarate-folic acid 18 mg-400 mcg tablet (Women's Daily Multivitamin) 1 tab PO Q48H Supplement 12/08/24
semaglutide 2 mg/dose (8 mg/3 mL) subcutaneous pen injector (Ozempic) 2 mg SC SA WEIGHT LOSS 12/08/24
mupirocin 2 % topical ointment 1 applic topical BID infection prevention #1 tube 12/09/24
ondansetron 4 mg disintegrating tablet 4 mg PO Q6H PRN n/v #20 tabs 12/09/24
oxycodone 5 mg tablet 5 mg PO Q6H PRN 1 tab moderate pain, 2 tabs severe pain #30 tabs 12/09/24
clindamycin HCl 300 mg capsule 300 mg PO QID Infection #20 caps 12/12/24
acetaminophen 650 mg tablet,extended release 1,300 mg (2 x 650 mg) PO TID #0 tabs 12/19/24
carboxymethylcellulose sodium 0.5 % eye drops (Refresh Tears) 2 drp ophthalmic (eye) BID PRN dry eyes 12/19/24
docusate sodium 100 mg capsule (Colace) 100 mg PO BID #0 caps 12/19/24
losartan 50 mg tablet 50 mg PO HS Blood Pressure #0 tabs 12/19/24
magnesium hydroxide 400 mg/5 mL oral suspension (Milk of Magnesia) 30 ml PO HS PRN constipation #1 mL 12/19/24
menthol 5 % topical gel (Biofreeze (menthol)) 1 ea topical PRN PRN back pain 12/19/24
omeprazole 20 mg capsule,delayed release 20 mg PO BID GERD #0 caps 12/19/24
apixaban 2.5 mg tablet (Eliquis) 2.5 mg PO DAILY Blood clot prevention/tx 12/25/24
Review of Systems
-
History Source: Patient
Constitutional: Denies Fever or Chills
EENT: Denies Sore Throat
Respiratory: Denies Cough or Trouble Breathing
Cardiac: Denies Chest Pain, Diaphoresis, Palpitations or Syncope
Abdomen/GI: Denies Abdominal Pain, Nausea, Vomiting, Diarrhea or Constipated
: Reports See HPI; Denies Dysuria, Frequency or Urgency
Musculoskeletal: Reports Joint Pain (left knee ) and Joint Swelling (left knee )
Skin: Reports Other (ecchymosis to left knee ); Denies Itching or Rash
Neurological: Denies Dizzy, Headache, Weakness or Numbness
Physical Exam
Vital Signs
Vital Signs
Temp Pulse Resp BP Pulse Ox
98.0 F 81 16 134/68 98
12/25/24 14:57 12/25/24 18:15 12/25/24 18:15 12/25/24 18:00 12/25/24 17:15
Physical Exam
General: Well Developed, Well Nourished, No Apparent Distress, Comfortable, Conversant and Morbidly Obese
HEENT: NormoCephalic, Moist mucous membranes, Atraumatic, Nose Appears Normal and Ears Appear Normal
Respiratory: Clear and Non Labored Respirations
Cardiac: S1/S2 and Regular Rhythm; No Murmur, Rub or Gallop
Breast: Deferred by me
GI: Soft, Non Tender, Non Distended and Normal Bowel Sounds; No Organomegaly
Rectal: Deferred by Provider
Genito-urinary: Deferred by me
Musculoskeletal: No Clubbing and No Cyanosis
Skin: Warm, IV/Catheter Site and Other (left posterior knee ecchymosis, left knee edema )
Neuro: Awake, AO x 3 and Nonfocal/grossly intact
Psych: Calm and Intact Judgment/Insight
Laboratory Results
-
12/25/24 16:45
12/25/24 16:45
Laboratory Results
Total Bilirubin Cancelled 12/25/24 16:45
AST Cancelled 12/25/24 16:45
ALT Cancelled 12/25/24 16:45
Alkaline Phosphatase Cancelled 12/25/24 16:45
Data Reviewed
-
Ultrasound: Report Reviewed by me (LLE Nae Venous US: No sonographic evidence for left lower extremity deep venous thrombosis.)
Lab Data: Labs Reviewed by me (WBC 17.4, )
Impression/Plan
-
IMPRESSION/PLAN:
#left knee pain 2/2 s/p surgical replacement vs. fracture vs. DVT
#distal femur fracture
patient denies trauma, daughter reports patient will forcefully sit in a chair placing pressure on knee
WBC 17.4
LLE Nae Venous US: No sonographic evidence for left lower extremity deep venous thrombosis.
L Knee x-ray: distal femur fracture
LLE CT: pending
- Admit to med/surg
- Consult Orthopedics
- NPO at midnight
- Hold Eliquis
- pain regimen
#Hypertension
- continue losartan
#Morbid Obesity
- continue Ozempic out patient
- encourage balanced diet and exercise to promote weight loss
#Overactive Bladder
- continue Gemtesa
#Hyperparathyroidism
s/p partial parathyroidectomy
#Anxiety / Depression
- continue sertraline
#Right Breast Cancer
s/p Lumpectomy and Hormone therapy
Code status: full code
DVT prophylaxis: SCDs
--- NOTE | 2024-12-25 21:33 | W.PN.UPDATE ---
Update Note
Progress Note Update
Patient seen in conjunction with BAND SAWMILL OPERATOR. I agree with the findings and history and physical. I concur with assessment and plan unless stated otherwise.
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
increasing pain to the left knee. Patient herself reports that pain became more severe after flopping down on his seat at around 2 PM today. She noted increased swelling and ecchymoses. Due to uncontrolled pain she was brought in to ED by
daughter.
In ED she was afebrile, HD stable with BP 134/68, p 81, RR18, Pox 98. Xray shows fracture to the left distal femur adjacent to the prosthesis and fracture of the patellar. WBC 17.4. Electrolytes, BUN/CR WNL.
Assessment and plan
Traumatic fracture to prosthetic knee joint with left distal femur fracture.
- admit to med/surg
- knee immobilizer
- pain control
- NPO after midnight, maintenance fluids
- no thinners, last eliquis Thursday evening.
- urinary retention protocol
- ok to continue her losartan tomorrow evening after surgery
DVT PPX - SCDs for now pending surgery
Code status - DNR
[2024-12-25 22:47] LABS: Potassium 4.5 mmol/L (3.5-5.1)
[2024-12-26] VITALS: BMI 45.1
[2024-12-26 00:01] VITALS: BP 156/86
[2024-12-26] MEDS: TYLENOL 650 MG PO ×5 (00:30→23:05)
[2024-12-26] MEDS: ZETIA 10 MG PO ×2 (00:31→21:05)
[2024-12-26] MEDS: ZOLOFT 50 MG PO ×2 (00:31→21:05)
[2024-12-26] MEDS: COZAAR 50 MG PO (00:31)
[2024-12-26] MEDS: DILAUDID 0.5 MG IV ×5 (02:07→21:08)
[2024-12-26 07:39] LABS: Hematocrit 33.1 % (37.0-47.0); Hemoglobin 11.0 g/dL (12.0-16.0); Mean Corp Hgb Conc. 33.2 g/dL (33.0-37.0); Mean Corpuscular Volume 87.6 fL (81.0-99.0); Platelet Count 293 10^3/uL (130-400); Red Cell Dist. Width 14.9 % (11.5-14.5)
[2024-12-26 07:41] VITALS: BP 121/61
[2024-12-26 08:09] LABS: Blood Urea Nitrogen 16 mg/dl (7-17); Calcium 9.1 mg/dl (8.4-10.2); Carbon Dioxide 25 mmol/L (22-30); Chloride 105 mmol/L (98-107); Estimated Creatinine Clearance 92 ml/min; Glucose 93 mg/dl (70-99); Potassium 4.4 mmol/L (3.5-5.1); Sodium 134 mmol/L (135-145); eGFR > 60.00
--- NOTE | 2024-12-26 08:12 | CON.ORTHO ---
Consultation
-
Date/Time Consultation Requested: Dec 22/0822
Date/Time Consultation Performed: Dec 22/0730
Requesting Provider: Tabitha
Performing Provider: Lisa Wong
Reason for Consultation: Left periprosthetic distal femur fracture
Consultation - Orthopedics
History
History of Present Illness:
Patient is a 74-year-old female with PMH significant for hypertension, depression/anxiety and overactive bladder who presented to [facility] ED for evaluation of increased left knee pain. Patient underwent LEFT TKA via Dr. Wong on Dec 22, and
reports she has been doing ok since she was discharged home. She had manageable pain up until yesterday when she had severe pain to the left knee where she felt her left leg was unable to hold her up. she denies any significant trauma, including a
fall. Daughter reported to ED staff that patient will forcefully 'flop' into chair when going to sit down. She was found radiographically in the ED to have a necessary schedule fracture of her distal femur which appears to extend to the femoral
component of her prosthesis, but prosthesis appearing to be well seated. therefore, we were requested in consultation for the consideration of surgical correction. Of note she does take Eliquis, last reported dose being Thursday PM (Nov)
Past Medical History:
Hypertension
Morbid Obesity
Overactive Bladder
Hyperparathyroidism
Anxiety / Depression
Umbilical Hernia
DJD
Right Breast Cancer s/p Lumpectomy and Hormone therapy
Past Surgical History:
LEFT TKA (Dec 22)
Right Lumpectomy
Parathyroidectomy
Cataracts
Right Knee Arthroscopy
Right Carpal Tunnel Surgery
Left Knee Arthroscopy
Social History:
Tobacco: Non-smoker
Alcohol: None
Drug: None
Living: Alone
Employment: Retired
Family History:
Family History: Other (Sister: DM; Mother: dementia; Father: CAD )
ROS:
12 point negative except for those mentioned in the HPI
Allergies / Home Medications
Allergy/AdvReac Type Severity Reaction Status Date / Time
adhesive tape Allergy Rash Verified 12/25/24 15:05
amoxicillin Allergy Hives Verified 12/25/24 15:05
Cephalosporins Allergy Hives Verified 12/25/24 15:05
nitrofurantoin (From Allergy Severe Verified 12/25/24 15:05
Macrobid) Dehydration,
diarrhea,
vomiting
Penicillins Allergy Hives Verified 12/25/24 15:05
�Medication �Instructions �Recorded
alirocumab 75 mg/mL subcutaneous 75 mg SC Q2W Autoimmune Disorder 05/22/23
pen injector (Praluent Pen)
ezetimibe 10 mg tablet 10 mg PO HS High Cholesterol 05/22/23
sertraline 50 mg tablet 50 mg PO HS Mental Health/Anxiety 05/22/23
vibegron 75 mg tablet (Gemtesa) 75 mg PO DAILY OVERACTIVE BLADDER 05/22/23
multivitamin-ferrous 1 tab PO Q48H Supplement 12/08/24
fumarate-folic acid 18 mg-400 mcg
tablet (Women's Daily Multivitamin)
semaglutide 2 mg/dose (8 mg/3 mL) 2 mg SC SA WEIGHT LOSS 12/08/24
subcutaneous pen injector (Ozempic)
mupirocin 2 % topical ointment 1 applic topical BID infection 12/09/24
prevention #1 tube
ondansetron 4 mg disintegrating 4 mg PO Q6H PRN n/v #20 tabs 12/09/24
tablet
oxycodone 5 mg tablet 5 mg PO Q6H PRN 1 tab moderate 12/09/24
pain, 2 tabs severe pain #30 tabs
clindamycin HCl 300 mg capsule 300 mg PO QID Infection #20 caps 12/12/24
acetaminophen 650 mg 1,300 mg (2 x 650 mg) PO TID #0 12/19/24
tablet,extended release tabs
carboxymethylcellulose sodium 0.5 2 drp ophthalmic (eye) BID PRN dry 12/19/24
% eye drops (Refresh Tears) eyes
docusate sodium 100 mg capsule 100 mg PO BID #0 caps 12/19/24
(Colace)
losartan 50 mg tablet 50 mg PO HS Blood Pressure #0 tabs 12/19/24
magnesium hydroxide 400 mg/5 mL 30 ml PO HS PRN constipation #1 mL 12/19/24
oral suspension (Milk of Magnesia)
menthol 5 % topical gel (Biofreeze 1 ea topical PRN PRN back pain 12/19/24
(menthol))
omeprazole 20 mg capsule,delayed 20 mg PO BID GERD #0 caps 12/19/24
release
apixaban 2.5 mg tablet (Eliquis) 2.5 mg PO DAILY Blood clot 12/25/24
prevention/tx
Vital Signs / Lab Results
Temp Pulse Resp BP Pulse Ox
97.6 F 70 18 121/61 93
12/26/24 07:41 12/26/24 07:41 12/26/24 07:41 12/26/24 07:41 12/26/24 07:41
12/26/24 07:15
12/26/24 07:15
Assessment / Plan
PE: Afeb. Hgb 11.0. Left knee with Primaseal dressing intact. Upon removal I note a well-approximated vertical incision with ondina intact. No overt clinical signs of infection here. A moderate amount of edema and ecchymosis about the knee.
Deferred range of motion due to known fracture. Immobilizer in place. Calf soft nontender. DNVI LLE.
Diagnostics: Xrays and correlating CT reveal an oblique, slightly displaced and angulated LEFT distal femoral metaphyseal/diaphyseal junction fracture which appears to extend to the femoral component of her TKA. Prosthesis appears to be cemented in
place without obvious evidence of loosening.
Impression: LEFT periprosthetic distal femur fracture
Plan: Unfortunately Megan is dealing with a LEFT periprosthetic distal femur fracture. Fortunately her prosthesis appears well seated. I discussed at length with the patient bedside and explained the nature of her fracture and all options of
management, including nonoperative and operative (which we strongly recommend). after discussing all the RBAs of management she accepts all the proposed risks of surgical fixation and would like to proceed. We discussed the postop and rehab course
as well, and will appreciate CM management with disposition. She will remain at bedrest for now with the knee immobilizer in place. Would recommend elevation on pillows if tolerable. Ice to the knee as needed. Unfortunately surgery will need to
be delayed until Thursday to allow for Eliquis washout (72 hours) in order to proceed with regional anesthesia (as her last dose was Thursday PM). Dr. Lu aware. She has been consented to an ORIF of her LEFT distal femur, likely retrograde IM
nail, under the direction of Dr. Wong. Surgical and blood consents have been signed and placed in the patient's chart. Operative site will be marked by a member of the surgical team. NPO order placed for Thursday AM. OR aware. T&S requested.
All necessary orders placed for Thursday surgery. Will follow. Trend Hgb.
This patient was seen in tandem with Dr. Gomez Wong
[2024-12-26] MEDS: BACTROBAN 2% OINTMENT 1 APPLIC TOPICAL ×2 (09:02→19:56)
[2024-12-26] MEDS: PROTONIX 40 MG PO ×2 (09:03→19:57)
[2024-12-26] MEDS: COLACE PO (09:21)
[2024-12-26] MEDS: ROXICODONE 5 MG PO ×4 (09:36→23:06)
--- NOTE | 2024-12-26 10:01 | CM ---
Patient seen at bedside with daughter Oxana
IA completed
Dx: Distal femur fx - OR scheduled on Thursday
past medical history significant for hypertension, depression/anxiety and overactive bladder
reports left knee replacement with Dr. Wong on last Thursday
Patient lives in [facility], elevator access
PLOF: Walker, wheelchair
DME: Walker, wheelchair, shower chair, grab bars
was current with [facility] therapy post knee replacement/[facility] in past (does not wish to go there)
discussed SNF options after her surgery on Thursday
states would pefer [facility] - discussed will need to also get auth
referral placed in [facility]
PT/OT evals needed post-op
PCP: Gema Rivas
Pharmacy: [facility], [facility] - Mail in pharmacy: [facility]
PLAN: OR Thursday, anticipate SNF, CM to follow for needs, will need auth
[2024-12-26 12:19] LABS: Urine Character Clear (Clear)
[2024-12-26] MEDS: FLUSH (NSS) 2 FLUSH IV ×2 (12:24→16:39)
[2024-12-26 12:26] LABS: Urine Red Blood Cell 0-2 /HPF (0-2); Urine Squamous Cell 16-20 /LPF (Few)
--- NOTE | 2024-12-26 13:44 | PTCARENOTE ---
RUE limb restriction removed at pt and daughter's request. Daughter, Oxana called breast surgeon and indicated that limb restriction for Right arm not indicated as pt only had 1 lymph node removed. care ongoing.
--- NOTE | 2024-12-26 15:23 | W.PN.HOSP.TC ---
Today's Communication/Plan
-
Continue current care
Assessment / Plan
Assessment / Plan
Gen-AAOx3, NAD
HEENT-NC, AT, anicteric, clear oral mm
Neck-supple
CV-reg, no M, +S1/S2
Lungs-clear B/L
Abd-soft, NT, ND
Ext-no edema
Musculoskeletal-no cyanosis, clubbing
Skin-warm and dry
Neuro-grossly non-focal
Psych-calm, cooperative
Acute left distal femoral periprosthetic fracture -due to underlying osteoporosis. Patient denies any trauma. She just had a left total knee arthroplasty 12/19.
Was on Eliquis 2.5 mg twice daily for VTE prophylaxis after her knee replacement a week ago. Last dose of Eliquis was evening of 12/24.
If she will get neuraxial anesthesia then a 36-hour washout should be adequate. Discussed with orthopedics.
Continue analgesics, PT/OT postop.
Orthopedics plans on operative repair on December 28.
Hyponatremia -sodium 134. Suspect SIADH related to acute pain.
Essential hypertension -stable.
History of primary hyperparathyroidism -surgically treated.
Anxiety/depression
Overactive bladder
Osteoarthritis
Morbid obesity due to excess calories
Full code
Updated daughter at the bedside.
Anticipated Discharge: > 48 hours
Subjective/Interval History
-
Date of Service: December 26, 2024
Patient seen and examined, complaining of left leg pain.
Objective Data
-
Labs:
Laboratory Results
12/26/24
07:15
WBC 13.0 H
Hgb 11.0 L
Hct 33.1 L
Plt Count 293
Sodium 134 L
Potassium 4.4
Chloride 105
Carbon Dioxide 25
BUN 16
Creatinine 0.5 L
Glucose 93
Calcium 9.1
Vital Signs:
Vital Signs
Temp Pulse Resp BP Pulse Ox
97.6 F 70 18 121/61 97
12/26/24 07:41 12/26/24 07:41 12/26/24 07:41 12/26/24 07:41 12/26/24 09:00
Review of Systems
-
History Source: Patient
All other systems: Reviewed and negative
[2024-12-26 15:30] VITALS: BP 117/55
[2024-12-26 18:12] LABS: Vitamin D, 25-OH*** 30.6 ng/mL (30-80)
[2024-12-26] MEDS: COLACE 100 MG PO (19:57)
[2024-12-26] MEDS: COZAAR PO (22:26)
[2024-12-26 23:01] VITALS: BP 104/56
[2024-12-27] MEDS: DILAUDID 0.5 MG IV ×5 (01:45→22:33)
[2024-12-27] MEDS: ROXICODONE 5 MG PO (05:25)
[2024-12-27] MEDS: TYLENOL 650 MG PO ×3 (05:25→17:48)
--- NOTE | 2024-12-27 06:27 | PTCARENOTE ---
pt was agitated and voiced concern of why did nurse not wake her Q2hrs for her pain meds. Nurse educated pt pain meds are PRN as well as VS have to be taken into consideration. Pt rec'vd her crystal Tylenol and 5:30 PRN oxy. Pt at 0610 than requested
her PRN Dilaudid, nurse in to re-assess pain at 06:29 and pt is sound asleep, b/p 104/56. Plan of care implemented.
--- NOTE | 2024-12-27 06:34 | W.PN.UPDATE ---
Update Note
Progress Note Update
The patient was seen and examined by Orthopedic surgery this morning on rounds. She unfortunately sustained a LEFT periprosthetic distal femur fracture. Plan to proceed with ORIF LEFT distal femur periprosthetic fracture Thursday12/28/2024 under
the direction of Dr. Wong. Surgical and blood consents obtained and in chart. Type and screen completed. Hemoglobin this AM pending (11.0 yesterday). NPO pMN 12/27/2024. Pain control per primary team. Knee immobilizer to remain intact.
Ancef, iodine irrigation and TXA irrigation OCTOR. Will follow.
[2024-12-27 07:39] LABS: Hematocrit 34.1 % (37.0-47.0); Hemoglobin 11.2 g/dL (12.0-16.0)
[2024-12-27 07:47] VITALS: BP 120/69
[2024-12-27] MEDS: BACTROBAN 2% OINTMENT 1 APPLIC TOPICAL ×2 (08:31→20:15)
[2024-12-27] MEDS: COLACE 100 MG PO ×2 (08:31→20:14)
[2024-12-27] MEDS: PROTONIX 40 MG PO ×2 (08:31→20:14)
--- NOTE | 2024-12-27 08:50 | CM ---
CM reviewed chart- ADC>48 hours
Pt from [facility] and planned for OR tomorrow for ORIF R. femur
SNF needs anticipated- referrals sent day prior and pending
Will benefit from post-op PT/OT evals
If SNF needs on dc will need [facility] auth
Discharge Disposition- anticipate SNF pending auth
[2024-12-27] MEDS: ROXICODONE 10 MG PO ×3 (09:37→20:12)
--- NOTE | 2024-12-27 12:04 | W.PN.HOSP.TC ---
Today's Communication/Plan
-
Increase oxycodone
N.p.o. after midnight
Assessment / Plan
Assessment / Plan
Gen-AAOx3, NAD
HEENT-NC, AT, anicteric, clear oral mm
Neck-supple
CV-reg, no M, +S1/S2
Lungs-clear B/L
Abd-soft, NT, ND
Ext-no edema
Musculoskeletal-no cyanosis, clubbing
Skin-warm and dry
Neuro-grossly non-focal
Psych-calm, cooperative
Acute left distal femoral periprosthetic fracture -due to underlying osteoporosis. Patient denies any trauma. She just had a left total knee arthroplasty 12/19.
Was on Eliquis 2.5 mg twice daily for VTE prophylaxis after her knee replacement a week ago. Last dose of Eliquis was evening of 12/24.
If she will get neuraxial anesthesia then a 36-hour washout should be adequate. Discussed with orthopedics.
Continue analgesics, PT/OT postop. Oxycodone dose increased. Continue IV Dilaudid as needed. Continue Tylenol [id number].
Orthopedics plans on operative repair on Thursday, December 28. N.p.o. after midnight.
Sequential compression devices for DVT prophylaxis per orthopedics recommendation.
Osteoporosis -recommend outpatient follow-up with endocrinology. Currently not on meds.
Vitamin D level 30.
Hyponatremia -sodium 134. Suspect SIADH related to acute pain.
Essential hypertension -stable.
History of primary hyperparathyroidism -surgically treated.
Anxiety/depression
Overactive bladder
Osteoarthritis
Morbid obesity due to excess calories
Full code
Updated patient's daughter Oxana on the phone.
Anticipated Discharge: > 48 hours
Subjective/Interval History
-
Date of Service: December 27, 2024
Patient seen and examined, complaining of leg pain.
Objective Data
-
Labs:
Laboratory Results
12/27/24
07:19
Hgb 11.2 L
Hct 34.1 L
Vital Signs:
Vital Signs
Temp Pulse Resp BP Pulse Ox
98.3 F 69 20 120/69 96
12/27/24 07:47 12/27/24 07:47 12/27/24 07:47 12/27/24 07:47 12/27/24 07:47
I&O
12/26/24 12/27/24 12/28/24
06:59 06:59 06:59
Intake Total 1080 / 1080
Output Total 2250 / 2250
Balance -1170 / -1170
Review of Systems
-
History Source: Patient
All other systems: Reviewed and negative
--- NOTE | 2024-12-27 12:22 | W.PN.UPDATE ---
Update Note
Progress Note Update
Periprosthetic fracture left TKA-OR for revision in am 12/28/24
Vitamin D deficiency
-Ergocalciferol Rx-sent
-check TSH
-bone density OP
Balance and gait disturbance with ambulatory dysfunction.
-fall precautions.
DVT ppx-following original surgery of [place] joint patient was placed on Eliquis 2.5mg bid dosing + SCD due to reported severe reflux and additional risk factors for clot to include morbid obesity, age,
history of malignancy in the setting of orthopedic surgery. We have discussed blood clot prevention moving forward and will utilize Aspirin 325mg enteric coated daily w/ PPI + SCD device to begin today.
Infection prevention. Given morbid obesity and and diabetes, we
will utilize antibiotic prophylaxis for infection prevention postoperatively.
Clindamycin 300mg qid, due to Cephalosporin allergy
[2024-12-27] MEDS: ASPIR LOW (ENTERIC COATED) 162 MG PO ×2 (12:32→20:14)
[2024-12-27] MEDS: DRISDOL (VITAMIN D2) 50000 UNITS PO (12:33)
[2024-12-27] MEDS: FLUSH (NSS) 2 FLUSH IV ×3 (12:34→22:33)
[2024-12-27 13:21] LABS: TSH 1.48 uIU/ml (0.47-4.68)
[2024-12-27 15:26] VITALS: BP 120/64
[2024-12-27] MEDS: NON-FORMULARY ITEM 75 MG PO (20:12)
[2024-12-27] MEDS: ZOLOFT 50 MG PO (22:29)
[2024-12-27] MEDS: ZETIA 10 MG PO (22:29)
[2024-12-27] MEDS: COZAAR PO (22:30)
[2024-12-27 23:08] VITALS: BP 113/61
[2024-12-28] VITALS (14 sets, daily range): BP systolic 105–143; BP diastolic 55–73
[2024-12-28] MEDS: ROXICODONE 10 MG PO ×3 (00:28→10:02)
[2024-12-28] MEDS: TYLENOL 650 MG PO ×3 (00:28→18:44)
[2024-12-28] MEDS: DILAUDID 0.5 MG IV ×3 (02:57→21:42)
[2024-12-28] MEDS: FLUSH (NSS) 2 FLUSH IV (02:57)
--- NOTE | 2024-12-28 07:13 | W.PN.UPDATE ---
Update Note
Progress Note Update
Patient scheduled for OR today for ORIF distal femur fracture under the direction of Dr. Wong. She is resting comfortably in bed this morning, and states her pain is decently controlled at present. Knee immobilizer in place to LLE. Patient able
to wiggle toes, plantar and dorsiflex ankle. NVID.
NPO until surgery. NWB to LLE until surgery. Hgb pending this AM, 11.2 yesterday.
Antibiotics and irrigation orders in.
[2024-12-28] MEDS: BACTROBAN 2% OINTMENT 1 APPLIC TOPICAL ×2 (07:53→20:13)
[2024-12-28] MEDS: PROTONIX 40 MG PO ×2 (07:58→20:13)
[2024-12-28] MEDS: NON-FORMULARY ITEM PO (07:58)
[2024-12-28] MEDS: ASPIR LOW (ENTERIC COATED) 162 MG PO (07:58)
[2024-12-28] MEDS: COLACE PO (08:02)
[2024-12-28] MEDS: TYLENOL PO (12:00)
[2024-12-28 13:28] LABS: Hematocrit 33.7 % (37.0-47.0); Hemoglobin 11.0 g/dL (12.0-16.0)
[2024-12-28 14:56] LABS: B.E. - POC -1.7 mmol/L; Glucose - POC 104 mg/dl (70-99); HCO3 - POC 26 mmol/L (21-28); Hematocrit - POC 31 % PCV (37-47); Hemodilution- POC Yes; Hemoglobin Calculated - POC 10.5; Ionized Calcium - POC 1.14 mmol/L (1.15-1.33); Lactate - POC 1.56 mmol/L (0.36-0.75); O2 Saturation %Calculated-POC 76.6 % (94-98); PCO2 - POC 60 mmHg (35-48); PO2 - POC 49 mmHg (83-108); Potassium - POC 4.5 mmol/L (3.5-5.1); Sodium - POC 134 mmol/L (136-145); Specimen Type - POC Venous; pH - POC 7.25 (7.35-7.45)
--- NOTE | 2024-12-28 16:28 | W.PN.HOSP.TC ---
Today's Communication/Plan
-
Check labs in the morning
PT/OT
Continue analgesics
Resume diet
Assessment / Plan
Assessment / Plan
Gen-AAOx3, NAD
HEENT-NC, AT, anicteric, clear oral mm
Neck-supple
CV-reg, no M, +S1/S2
Lungs-clear B/L
Abd-soft, NT, ND
Ext-no edema
Musculoskeletal-no cyanosis, clubbing
Skin-warm and dry
Neuro-grossly non-focal
Psych-calm, cooperative
Acute left distal femoral periprosthetic fracture -due to underlying osteoporosis. Patient denies any trauma. She just had a left total knee arthroplasty 12/19.
Was on Eliquis 2.5 mg twice daily for VTE prophylaxis after her knee replacement a week ago. Last dose of Eliquis was evening of 12/24.
Underwent successful ORIF distal left femur fracture 12/28. Unfortunately had significant blood loss. Monitor hemoglobin.
Resume diet.
Osteoporosis -recommend outpatient follow-up with endocrinology. Currently not on meds.
Vitamin D level 30.
Hyponatremia -sodium 134. Suspect SIADH related to acute pain.
Essential hypertension -stable.
History of primary hyperparathyroidism -surgically treated.
Anxiety/depression
Overactive bladder
Osteoarthritis
Morbid obesity due to excess calories
Full code
PT/OT postop
Anticipated Discharge: > 48 hours
Subjective/Interval History
-
Date of Service: December 28, 2024
Patient seen and examined in the recovery room. No complaints.
Objective Data
-
Labs:
Laboratory Results
12/28/24
13:10
Hgb 11.0 L
Hct 33.7 L
Vital Signs:
Vital Signs
Temp Pulse Resp BP Pulse Ox
98.7 F 69 16 132/69 97
12/28/24 07:10 12/28/24 07:10 12/28/24 07:10 12/28/24 07:10 12/28/24 07:10
I&O
12/27/24 12/28/24 12/29/24
06:59 06:59 06:59
Intake Total 1080 / 1080 360 / 360
Output Total 2250 / 2250 1450 / 1450
Balance -1170 / -1170 -1090 / -1090
Review of Systems
-
History Source: Patient
All other systems: Reviewed and negative
[2024-12-28] MEDS: DILAUDID 0.25 MG IV ×2 (16:31→16:57)
--- NOTE | 2024-12-28 16:40 | CM ---
Following up on Patient. Hospitalist said that patient was ready, but then there was told that there was a lot of blood lost in surgery so now Ortho has to be fine with DC.
DAGO Newman saw the referrals made and 2 are fine with taking the patient if there is a bed, [facility]. [facility] will not accept if the patient is on injectables Ozempic (DM2) and Praluent (cholesterol). Also, [facility] will not allow the
patient to have family bring them in.
[facility] will accept the patient with the family bringing in both medications. Daughter Oxana is aware, said that mom has been off these medications for sometime to have the surgery, and that mom has these medications at home if she needs to bring them
in to a facility. Also, the daughter said that the patient maybe fine with staying off them until rehab is completed.
Patient will need authorization started with [facility] medicare. Case Management to follow on when patient is ready.
PLAN: SN[facility].
[2024-12-28] MEDS: ZOFRAN 4 MG IV (16:46)
--- NOTE | 2024-12-28 18:13 | PTCARENOTE ---
Addendum entered by Claudia Trammell RN 12/28/24 18:24:
Patient also returned from PACU with urinary catheter in place draining clear yellow urine.
Original Note:
Received patient from PACU around 1800 via bed in stable condition. Dressing to left knee with small amount of sanguinous drainage. Left upper thigh dressing CDI. LLE immobilizer in place. LLE + sensation +movement. Patient placed on telemetry as
ordered. Daughter at bedside. Call corey in reach.
[2024-12-28] MEDS: NSS 1000 IV (18:43)
[2024-12-28] MEDS: ASPIRIN 325 MG PO (18:44)
[2024-12-28] MEDS: ASPIR LOW (ENTERIC COATED) PO ×2 (20:12→21:18)
[2024-12-28] MEDS: ANCEF 5 IV (20:12)
[2024-12-28] MEDS: COLACE 100 MG PO (20:13)
[2024-12-28] MEDS: ZETIA 10 MG PO (21:42)
[2024-12-28] MEDS: ZOLOFT 50 MG PO (21:42)
[2024-12-28] MEDS: COZAAR PO (21:43)
[2024-12-29] VITALS (8 sets, daily range): BP systolic 105–129; BP diastolic 53–87; PULSE 95; O2SAT 94
[2024-12-29] MEDS: TYLENOL 650 MG PO ×4 (00:38→19:55)
[2024-12-29] MEDS: ANCEF 5 IV (04:11)
[2024-12-29] MEDS: NSS 1000 IV (04:42)
[2024-12-29] MEDS: DILAUDID 0.5 MG IV ×2 (04:42→12:02)
--- NOTE | 2024-12-29 07:07 | W.PN.ORTHO ---
Today's Communication / Plan
-
PT/OT
Aspirin/mechanical devices/thigh-high ERIN stockings to prevent DVT
Ice with elevation to control swelling/pain
Knee immobilizer in place at all times
Nonweightbearing left lower extremity
Follow-up with orthopedics 2 weeks postop for skin clip removal and x-ray
SNF once medically stable
Assessment
.
Distal Motor Intact: Yes
Dressing:
Clean, dry and intact. Knee immobilizer in place.
Plan
.
Surgery / Date: L femur retrograde nail 12/28 Judith
DVT Prophylaxis: Aspirin
Activity:
Out of bed.
PT/OT
Discharge Plan: Home w/ VN and SNF
Subjective
.
.:
Patient appears to be doing very well this morning. Overnight her pain was well-controlled. She likes the knee immobilizer because it feels like it holds the leg very well. Thus far she seems to be tolerating the aspirin.
Vital Signs and Labs
.
Vital Signs and Labs:
Temp Pulse Resp BP Pulse Ox
98.0 F 84 20 112/63 96
12/29/24 03:30 12/29/24 03:30 12/29/24 03:30 12/29/24 03:30 12/29/24 03:30
[2024-12-29] MEDS: ROXICODONE 10 MG PO ×3 (07:45→19:56)
[2024-12-29] MEDS: COLACE 100 MG PO ×2 (07:45→19:55)
[2024-12-29] MEDS: PROTONIX 40 MG PO ×2 (07:46→19:55)
[2024-12-29] MEDS: BACTROBAN 2% OINTMENT 1 APPLIC TOPICAL ×2 (07:46→19:55)
[2024-12-29] MEDS: ASPIRIN 325 MG PO (07:46)
[2024-12-29 07:55] LABS: Hematocrit 27.4 % (37.0-47.0); Hemoglobin 8.7 g/dL (12.0-16.0); Mean Corp Hgb Conc. 31.8 g/dL (33.0-37.0); Mean Corpuscular Volume 86.7 fL (81.0-99.0); Nucleated Red Blood Cells % 0 %; Platelet Count 305 10^3/uL (130-400); Red Cell Dist. Width 14.8 % (11.5-14.5)
[2024-12-29 07:57] LABS: Calcium 8.2 mg/dl (8.4-10.2); Carbon Dioxide 27 mmol/L (22-30); Chloride 104 mmol/L (98-107); Estimated Creatinine Clearance 92 ml/min; Glucose 92 mg/dl (70-99); Potassium 4.4 mmol/L (3.5-5.1); Sodium 132 mmol/L (135-145); eGFR > 60.00
[2024-12-29 08:07] LABS: Blood Urea Nitrogen 10 mg/dl (7-17)
--- NOTE | 2024-12-29 08:44 | W.PN.HOSP.TC ---
Today's Communication/Plan
-
PT/OT
Bladder scans, straight cath protocol
Bowel regimen
Analgesics
Stop IV fluids
monitor hemoglobin
Assessment / Plan
Assessment / Plan
Gen-AAOx3, NAD
HEENT-NC, AT, anicteric, clear oral mm
Neck-supple
CV-reg, no M, +S1/S2
Lungs-clear B/L
Abd-soft, NT, ND
Ext-no edema
Musculoskeletal-no cyanosis, clubbing
Skin-warm and dry
Neuro-grossly non-focal
Psych-calm, cooperative
Acute left distal femoral periprosthetic fracture -due to underlying osteoporosis. Patient denies any trauma. She just had a left total knee arthroplasty 12/19.
Was on Eliquis 2.5 mg twice daily for VTE prophylaxis after her knee replacement a week ago. Last dose of Eliquis was evening of 12/24.
Underwent successful ORIF distal left femur fracture 12/28. Unfortunately had significant blood loss. Monitor hemoglobin.
Resumed diet.
Acute anemia -suspect related to acute blood loss anemia due to orthopedic surgery as well as hemodilution induced anemia from IV fluid administration. Stop further IV fluids. Hemoglobin down to 8.7 today, 12.5 on admission. Did have significant
blood loss with orthopedic surgery. No indication for transfusion currently, monitor hemoglobin closely. Discussed with patient and nursing. Discussed with orthopedics, Dr. Wong.
Urinary retention -possibly acute. Suspect related to fracture, constipation, limited mobility. Follow-up bladder scan, straight cath protocol. Discussed with nursing. Last bowel movement has been several days, bowel regimen ordered.
Osteoporosis -recommend outpatient follow-up with endocrinology. Currently not on meds.
Vitamin D level 30.
Hyponatremia -sodium 132. Suspect SIADH related to acute pain. 50 ounce daily fluid restriction ordered.
Essential hypertension -stable.
History of primary hyperparathyroidism -surgically treated.
Anxiety/depression
Overactive bladder
Osteoarthritis
Morbid obesity due to excess calories
Full code
PT/OT postop
Daughter Oxana updated on the phone.
Anticipated Discharge: 24 - 48 hours
Subjective/Interval History
-
Date of Service: December 29, 2024
Patient seen and examined, pain is controlled, slept well. Complaining of mild cough from reflux.
Objective Data
-
Labs:
Laboratory Results
12/29/24
07:19
WBC 14.4 H
Hgb 8.7 L D
Hct 27.4 L
Plt Count 305
Sodium 132 L
Potassium 4.4
Chloride 104
Carbon Dioxide 27
BUN 10
Creatinine 0.6
Glucose 92
Calcium 8.2 L
Vital Signs:
Vital Signs
Temp Pulse Resp BP Pulse Ox
98.1 F 86 16 105/75 89
12/29/24 07:10 12/29/24 07:10 12/29/24 07:10 12/29/24 07:10 12/29/24 08:20
I&O
12/28/24 12/29/24 12/30/24
06:59 06:59 06:59
Intake Total 360 / 360 1100 / 1100
Output Total 1450 / 1450 200 / 200 75 / 75
Balance -1090 / -1090 900 / 900 -75 / -75
Review of Systems
-
History Source: Patient
All other systems: Reviewed and negative
[2024-12-29] MEDS: MIRALAX 17 GRAMS PO (10:21)
[2024-12-29] MEDS: NON-FORMULARY ITEM PO (10:43)
--- NOTE | 2024-12-29 14:11 | CM ---
POD #1 S/P L distal femur fracture with repair. Bladder scans and straight cath as needed, monitoring HGB (today 8.7, yesterday 11.0). Discharge POC: SNF. [facility] if patient does not come with Ozempic or Praluent (family says patient has
not been taking). [facility] is willing to accept with meds. Needs auth.
[2024-12-29] MEDS: ZOLOFT 50 MG PO (22:29)
[2024-12-29] MEDS: ZETIA 10 MG PO (22:29)
[2024-12-29] MEDS: COZAAR PO (22:30)
[2024-12-29] MEDS: ZOFRAN 4 MG IV (23:11)
[2024-12-30] VITALS (8 sets, daily range): BP systolic 92–116; BP diastolic 50–61; PULSE 94; O2SAT 89
[2024-12-30] MEDS: TYLENOL 650 MG PO ×4 (00:38→22:20)
[2024-12-30] MEDS: ROXICODONE 10 MG PO ×2 (03:08→15:43)
[2024-12-30] MEDS: NON-FORMULARY ITEM 75 MG PO (07:09)
[2024-12-30] MEDS: MIRALAX 17 GRAMS PO (07:09)
[2024-12-30] MEDS: COLACE 100 MG PO ×2 (07:09→20:20)
[2024-12-30] MEDS: PROTONIX 40 MG PO ×2 (07:10→20:20)
[2024-12-30] MEDS: ASPIRIN 325 MG PO (07:10)
[2024-12-30 07:26] LABS: Blood Urea Nitrogen 10 mg/dl (7-17); Calcium 8.4 mg/dl (8.4-10.2); Carbon Dioxide 30 mmol/L (22-30); Chloride 106 mmol/L (98-107); Estimated Creatinine Clearance 92 ml/min; Glucose 106 mg/dl (70-99); Potassium 4.4 mmol/L (3.5-5.1); Sodium 135 mmol/L (135-145); eGFR > 60.00
[2024-12-30 07:37] LABS: Hematocrit 26.5 % (37.0-47.0); Hemoglobin 8.6 g/dL (12.0-16.0); Mean Corp Hgb Conc. 32.5 g/dL (33.0-37.0); Mean Corpuscular Volume 89.8 fL (81.0-99.0); Nucleated Red Blood Cells % 0.1 %; Platelet Count 329 10^3/uL (130-400); Red Cell Dist. Width 15.2 % (11.5-14.5)
--- NOTE | 2024-12-30 08:01 | W.PN.ORTHO ---
Today's Communication / Plan
-
74F L TKA 12/19 s/p L TKA periprosthetic fx Retrograde nail fixation with Dr. Wong 12/28
PT/OT
Aspirin/mechanical devices/thigh-high ERIN stockings to prevent DVT
Ice with elevation to control swelling/pain
Knee immobilizer in place at all times
Nonweightbearing left lower extremity
Follow-up with orthopedics 2 weeks postop for skin clip removal and x-ray
Discharge planning
Assessment
.
Distal Motor Intact: Yes
Dressing:
Clean, dry and intact.
Plan
.
Surgery / Date: L femur retrograde nail 12/28 Judith
Activity:
Out of bed.
PT/OT
Subjective
.
.:
Patient resting comfortably.
Vital Signs and Labs
.
Vital Signs and Labs:
Lab Results
12/30/24 06:24
12/30/24 06:24
Temp Pulse Resp BP Pulse Ox
98.4 F 95 16 114/61 92
12/30/24 06:21 12/30/24 06:21 12/30/24 06:21 12/30/24 06:21 12/30/24 06:21
--- NOTE | 2024-12-30 09:17 | W.PN.HOSP.TC ---
Today's Communication/Plan
-
Bowel regimen
Stop IV Dilaudid
Monitor bladder scans
Discharge planning
Assessment / Plan
Assessment / Plan
Gen-AAOx3, NAD
HEENT-NC, AT, anicteric, clear oral mm
Neck-supple
CV-reg, no M, +S1/S2
Lungs-clear B/L
Abd-soft, NT, ND
Ext-no edema
Musculoskeletal-no cyanosis, clubbing
Skin-warm and dry
Neuro-grossly non-focal
Psych-calm, cooperative
Acute left distal femoral periprosthetic fracture -due to underlying osteoporosis. Patient denies any trauma. She just had a left total knee arthroplasty 12/19.
Was on Eliquis 2.5 mg twice daily for VTE prophylaxis after her knee replacement a week ago. Last dose of Eliquis was evening of 12/24.
Underwent successful ORIF distal left femur fracture 12/28. Unfortunately had significant blood loss. Monitor hemoglobin.
Discontinue further IV Dilaudid, use Tylenol and oxycodone. Discussed with patient and nursing.
Aspirin for VTE prophylaxis per orthopedics.
Acute anemia -suspect related to acute blood loss anemia due to orthopedic surgery as well as hemodilution induced anemia from IV fluid administration. Stop further IV fluids. Hemoglobin 8.7 yesterday, 8.6 today, 12.5 on admission. No symptoms of
anemia. Did have significant blood loss with orthopedic surgery. No indication for transfusion currently, monitor hemoglobin closely. Discussed with patient and nursing. Discussed with orthopedics, Dr. Wong.
Urinary retention -possibly acute. Suspect related to fracture, constipation, limited mobility. Follow-up bladder scan, straight cath protocol. Discussed with nursing. Last bowel movement has been several days, bowel regimen ordered.
Osteoporosis -recommend outpatient follow-up with endocrinology. Currently not on meds.
Vitamin D level 30.
Hyponatremia -sodium improved to 135. Suspect SIADH related to acute pain. 50 ounce daily fluid restriction ordered.
Essential hypertension -stable.
History of primary hyperparathyroidism -surgically treated.
Anxiety/depression
Overactive bladder
Osteoarthritis
Morbid obesity due to excess calories
Full code
Dispo -medically stable for discharge to rehab. Case management aware.
Anticipated Discharge: Today
Subjective/Interval History
-
Date of Service: December 30, 2024
Patient seen and examined, had some pain this morning in the left leg.
Objective Data
-
Labs:
Laboratory Results
12/30/24
06:24
WBC 16.6 H
Hgb 8.6 L
Hct 26.5 L
Plt Count 329
Sodium 135
Potassium 4.4
Chloride 106
Carbon Dioxide 30
BUN 10
Creatinine 0.6
Glucose 106 H
Calcium 8.4
Vital Signs:
Vital Signs
Temp Pulse Resp BP Pulse Ox
98.4 F 95 16 114/61 92
12/30/24 06:21 12/30/24 06:21 12/30/24 06:21 12/30/24 06:21 12/30/24 06:21
I&O
12/29/24 12/30/24 12/31/24
06:59 06:59 06:59
Intake Total 1100 / 1100 820 / 820
Output Total 200 / 200 525 / 525
Balance 900 / 900 295 / 295
Review of Systems
-
History Source: Patient
All other systems: Reviewed and negative
--- NOTE | 2024-12-30 09:56 | CM ---
Patient seen at bedside
Per hospitalist patient stable for discharge
spoke with daughter Oxana [phone] prefer [facility] (private )
Spoke with Meg at [facility] will accept patient - [facility] will not accept if the patient is on injectables Ozempic (DM2) and Praluent (cholesterol). Also, [facility] will not allow the patient to have family bring them in. Hospitalist made aware.
daughter aware agreeable
IMM explained & signed. placed in chart
[facility] NPI #: [id number]
Dr. Elidia Pham NPI #: [id number]
CM Called [facility] ([facility] care transitions) [phone] and spoke to [facility] were faxed #: [phone]
start 12/30/24, Pending case # [id number]
PLAN: [facility], once auth approved
Report #: [id number]
Fax #: [phone]
transportation forms on chart
[2024-12-30] MEDS: DULCOLAX 10 MG PO (09:59)
[2024-12-30] MEDS: DULCOLAX 10 MG RECTAL (13:16)
[2024-12-30] MEDS: CLARITIN 10 MG PO (15:43)
[2024-12-30] MEDS: TYLENOL PO ×2 (17:54→18:01)
[2024-12-30] MEDS: ZOLOFT 50 MG PO (22:20)
[2024-12-30] MEDS: ZETIA 10 MG PO (22:20)
--- NOTE | 2024-12-30 22:27 | PTCARENOTE ---
Addendum entered by Vivian Pittman RN 12/31/24 00:31:
Blood cultures, CBC w/ diff, bmp, ua, urine cultures and covid swab ordered and collected. Pt had not voided since 1459. Bladder scan was 75cc. Straight cath @ 2330 for 300cc. Chest x-ray ordered and completed. Vitals at 2357: 90% on room air, 99.0
oral temp, 92/51, hr 99 rr 18. Pt placed on 2L nc @ 0000 to keep o2 above 93% per order and incentive spirometer given and pt instructed on use. 500mL nss bolus ordered and infusing. Pt started on levaquin first dose due at 0200. Care ongoing.
Original Note:
Pt diaphoretic and flushed. Vitals: 91% on room air, 100.3 oral temp, 102/57, hr 113, rr 16. 1800 dose tylenol non admin so 0000 tylenol dose admin early. WOLFGANG Ibarra notified and aware. Care ongoing.
[2024-12-30 23:04] LABS: Hematocrit 27.3 % (37.0-47.0); Hemoglobin 9.0 g/dL (12.0-16.0); Mean Corp Hgb Conc. 33.0 g/dL (33.0-37.0); Mean Corpuscular Volume 89.5 fL (81.0-99.0); Platelet Count 313 10^3/uL (130-400); Red Cell Dist. Width 15.4 % (11.5-14.5)
[2024-12-30 23:16] LABS: Blood Urea Nitrogen 13 mg/dl (7-17); Calcium 8.6 mg/dl (8.4-10.2); Carbon Dioxide 28 mmol/L (22-30); Chloride 104 mmol/L (98-107); Estimated Creatinine Clearance 92 ml/min; Glucose 118 mg/dl (70-99); Potassium 3.8 mmol/L (3.5-5.1); Sodium 133 mmol/L (135-145); eGFR > 60.00
[2024-12-30 23:18] LABS: Nucleated Red Blood Cells % 0.1 %
[2024-12-30 23:33] LABS: COVID-19 Antigen Negative (Negative)
[2024-12-30 23:58] LABS: Urine Character Clear (Clear)
[2024-12-31] LABS: Urine Red Blood Cell 0-2 /HPF (0-2); Urine Squamous Cell 0-2 /LPF (Few); Urine White Cell 0-2 /HPF (0-5)
[2024-12-31] MEDS: NSS 500 IV (00:24)
--- NOTE | 2024-12-31 01:01 | W.PN.UPDATE ---
Update Note
Progress Note Update
2214 RN reporting pt diaphoretic and facial flushed- temp 100.3, HR 113, 91% RA.
WBC this am was 16.6
PLAN: check covid, cxr, blood cx, ua, cbc, bmp
2300 WBC now 34.5 neutrophils 89%
CXR: per my eye (official report pending), maybe some atelecatsis vs early pna
bmp unchanged from am
Pt with many allergies (PCN, cephlosporin, macrobid, amoxicillin) will start levaquin (jessi cipro in past) to cover any resp component.
Incentive esperanza added for pulmonary toileting
covid neg
[2024-12-31] MEDS: LEVAQUIN 150 IV (02:25)
[2024-12-31] MEDS: MAALOX 30 ML PO (02:46)
[2024-12-31 03:09] VITALS: BP 111/57
[2024-12-31] MEDS: TYLENOL 650 MG PO ×4 (05:11→23:01)
[2024-12-31 07:12] LABS: Blood Urea Nitrogen 13 mg/dl (7-17); Calcium 8.2 mg/dl (8.4-10.2); Carbon Dioxide 27 mmol/L (22-30); Chloride 104 mmol/L (98-107); Estimated Creatinine Clearance 92 ml/min; Glucose 106 mg/dl (70-99); Potassium 4.3 mmol/L (3.5-5.1); Sodium 134 mmol/L (135-145); eGFR > 60.00
[2024-12-31 07:27] VITALS: BP 112/55
--- NOTE | 2024-12-31 07:27 | W.PN.HOSP.TC ---
Today's Communication/Plan
-
Stop antibiotics
Discharge planning
Assessment / Plan
Assessment / Plan
Gen-AAOx3, NAD
HEENT-NC, AT, anicteric, clear oral mm
Neck-supple
CV-reg, no M, +S1/S2
Lungs-clear B/L
Abd-soft, NT, ND
Ext-no edema
Musculoskeletal-no cyanosis, clubbing, left leg immobilizer
Skin-warm and dry, large ecchymosis involving left thigh
Neuro-grossly non-focal
Psych-calm, cooperative
Acute left distal femoral periprosthetic fracture -due to underlying osteoporosis. Patient denies any trauma. She just had a left total knee arthroplasty 12/19.
Was on Eliquis 2.5 mg twice daily for VTE prophylaxis after her knee replacement a week ago. Last dose of Eliquis was evening of 12/24.
Underwent successful ORIF distal left femur fracture 12/28. Unfortunately had significant blood loss. Monitor hemoglobin.
Discontinued further IV Dilaudid, use Tylenol and oxycodone. Discussed with patient and nursing.
Aspirin for VTE prophylaxis per orthopedics.
Acute anemia -suspect related to acute blood loss anemia due to orthopedic surgery as well as hemodilution induced anemia from IV fluid administration. IV fluids discontinued. Hemoglobin 9.0 last night, pending for this morning, 12.5 on admission.
No symptoms of anemia. Did have significant blood loss with orthopedic surgery. No indication for transfusion currently, monitor hemoglobin closely. Discussed with patient and nursing. Discussed with orthopedics, Dr. Wong.
Leukocytosis -with low-grade fever last night. Strongly suspect large left leg hematoma is driving the leukocytosis and low-grade fever last night. I examined her left leg after removing the leg immobilizer and noted a large hematoma.
No clinical evidence of pneumonia. Chest x-ray reviewed. Suspect atelectasis. Encourage incentive spirometry. Patient has a chronic cough that is unchanged and related to gastroesophageal reflux disease. She remains nontoxic and not hypoxic.
No indication for antibiotics.
Urinary retention -possibly acute. Suspect related to fracture, constipation, limited mobility. Follow-up bladder scan, straight cath protocol. Last bladder scan 64 cc. She is now moving her bowels.
Osteoporosis -recommend outpatient follow-up with endocrinology. Currently not on meds.
Vitamin D level 30.
Hyponatremia -sodium 134. Suspect SIADH related to acute pain. 50 ounce daily fluid restriction ordered.
Essential hypertension -stable.
History of primary hyperparathyroidism -surgically treated.
Anxiety/depression
Overactive bladder
Osteoarthritis
Morbid obesity due to excess calories
Full code
Dispo -medically stable for discharge to rehab. Case management aware.
Anticipated Discharge: Today
Subjective/Interval History
-
Date of Service: December 31, 2024
Patient seen and examined. Pain is under control. Events overnight noted. No complaints currently.
Objective Data
-
Labs:
Laboratory Results
12/30/24 12/31/24
22:51 05:34
WBC 34.1 H Pending
Hgb 9.0 L Pending
Hct 27.3 L Pending
Plt Count 313 Pending
Sodium 133 L 134 L
Potassium 3.8 4.3
Chloride 104 104
Carbon Dioxide 28 27
BUN 13 13
Creatinine 0.6 0.6
Glucose 118 H 106 H
Calcium 8.6 8.2 L
Vital Signs:
Vital Signs
Temp Pulse Resp BP Pulse Ox
98.2 F 83 18 112/55 98
12/31/24 07:27 12/31/24 07:27 12/31/24 07:27 12/31/24 07:27 12/31/24 07:27
I&O
12/30/24 12/31/24 01/01/25
06:59 06:59 06:59
Intake Total 820 / 820 1970 / 1970
Output Total 525 / 525 300 / 300
Balance 295 / 295 1670 / 1670
Review of Systems
-
History Source: Patient
All other systems: Reviewed and negative
[2024-12-31] MEDS: COLACE 100 MG PO ×2 (07:50→20:11)
[2024-12-31] MEDS: PROTONIX 40 MG PO ×2 (07:50→20:12)
[2024-12-31] MEDS: NON-FORMULARY ITEM PO (07:50)
[2024-12-31] MEDS: CLARITIN 10 MG PO (07:50)
[2024-12-31] MEDS: ASPIRIN 325 MG PO (07:50)
[2024-12-31] MEDS: MIRALAX 17 GRAMS PO (07:50)
[2024-12-31] MEDS: ROXICODONE 5 MG PO ×3 (08:27→23:01)
--- NOTE | 2024-12-31 09:04 | W.PN.ORTHO ---
Today's Communication / Plan
-
74F L TKA 12/19 s/p L TKA periprosthetic fx Retrograde nail fixation with Dr. Wong 12/28
PT/OT
Aspirin/mechanical devices/thigh-high ERIN stockings to prevent DVT
Ice with elevation to control swelling/pain
encouraged incentive spirometry use
Knee immobilizer in place at all times
Nonweightbearing left lower extremity
Follow-up with orthopedics 2 weeks postop for skin clip removal and x-ray
Discharge planning
Assessment
.
Distal Motor Intact: Yes
Dressing:
Clean, dry and intact.
Plan
.
Surgery / Date: L femur retrograde nail 12/28 Judith
Activity:
Out of bed.
PT/OT
Subjective
.
.:
Patient resting comfortably. Reports needing O2 last night, improved as of now.
Vital Signs and Labs
.
Vital Signs and Labs:
Lab Results
12/31/24 05:34
Temp Pulse Resp BP Pulse Ox
98.2 F 83 18 112/55 98
12/31/24 07:27 12/31/24 07:27 12/31/24 07:27 12/31/24 07:27 12/31/24 07:27
[2024-12-31 09:52] LABS: Hematocrit 25.6 % (37.0-47.0); Hemoglobin 8.3 g/dL (12.0-16.0); Mean Corp Hgb Conc. 32.4 g/dL (33.0-37.0); Mean Corpuscular Volume 91.1 fL (81.0-99.0); Platelet Count 340 10^3/uL (130-400); Red Cell Dist. Width 15.5 % (11.5-14.5)
[2024-12-31 10:37] LABS: Nucleated Red Blood Cells % 0.1 %
--- NOTE | 2024-12-31 14:17 | CM ---
Addendum entered by Trena Valle 12/31/24 15:50:
Per hospitalist, peer to peer determined auth approved
CM placed call to [facility] to confirm approval and auth details. Confirmed approval beginning today, 12/31 NRD 01/04. Facility to fax updates to [phone].
Called [facility] nurse millroom supervisor, provided auth details. Now asking if patient can admit tomorrow as there is short staffing. Also requesting scripts to be sent for oxycodone. Can accept E script to [facility]
Updated hospitalist, will send to pharmacy
Plan: [facility] SNF tomorrow. Transport forms on chart
Original Note:
Chart reviewed. Plan is for patient to d/c to [facility] once auth has been received. Pending at this time.
Received call from [facility], requesting a peer to peer review no later than 01/02. Number to call is [phone] option 5
Updated hospitalist, will complete peer to peer today
Left patient's daughter a message to update
Updated nursing millroom supervisor at [facility]. Confirmed patient remains on schedule to admit this weekend
[2024-12-31 15:49] VITALS: BP 103/57
[2024-12-31] MEDS: ZOLOFT 50 MG PO (21:51)
[2024-12-31] MEDS: ZETIA 10 MG PO (21:51)
[2025-01-01] MEDS: TYLENOL 650 MG PO (05:28)
[2025-01-01 06:20] LABS: Hematocrit 24.7 % (37.0-47.0); Hemoglobin 7.9 g/dL (12.0-16.0); Mean Corp Hgb Conc. 32.0 g/dL (33.0-37.0); Mean Corpuscular Volume 89.8 fL (81.0-99.0); Nucleated Red Blood Cells % 0.3 %; Platelet Count 289 10^3/uL (130-400); Red Cell Dist. Width 15.9 % (11.5-14.5)
--- NOTE | 2025-01-01 07:22 | W.PN.HOSP.TC ---
Today's Communication/Plan
-
Discharge
Assessment / Plan
Assessment / Plan
Gen-AAOx3, NAD
HEENT-NC, AT, anicteric, clear oral mm
Neck-supple
CV-reg, no M, +S1/S2
Lungs-clear B/L
Abd-soft, NT, ND
Ext-no edema
Musculoskeletal-no cyanosis, clubbing, left leg immobilizer
Skin-warm and dry, large ecchymosis involving left thigh
Neuro-grossly non-focal
Psych-calm, cooperative
Acute left distal femoral periprosthetic fracture -due to underlying osteoporosis. Patient denies any trauma. She just had a left total knee arthroplasty 12/19.
Was on Eliquis 2.5 mg twice daily for VTE prophylaxis after her knee replacement a week ago. Last dose of Eliquis was evening of 12/24.
Underwent successful ORIF distal left femur fracture 12/28. Unfortunately had significant blood loss. Monitor hemoglobin.
Discontinued further IV Dilaudid, use Tylenol and oxycodone. Discussed with patient and nursing.
Aspirin for VTE prophylaxis per orthopedics.
Acute anemia -suspect related to acute blood loss anemia due to orthopedic surgery as well as hemodilution induced anemia from IV fluid administration. IV fluids discontinued. Hemoglobin 7.9 this morning.
No symptoms of anemia. Did have significant blood loss with orthopedic surgery. No indication for transfusion currently, monitor hemoglobin closely. Discussed with patient and nursing. Discussed with orthopedics, Dr. Wong.
Leukocytosis -improved, 12.9 today. Afebrile. Suspect leukemoid reaction from hematoma.
No clinical evidence of pneumonia. Chest x-ray reviewed. Suspect atelectasis. Encourage incentive spirometry. Patient has a chronic cough that is unchanged and related to gastroesophageal reflux disease. She remains nontoxic and not hypoxic.
No indication for antibiotics.
Urinary retention -possibly acute. Suspect related to fracture, constipation, limited mobility. Follow-up bladder scan, straight cath protocol. She is now moving her bowels. Last bladder scan 297cc yesterday.
Osteoporosis -recommend outpatient follow-up with endocrinology. Currently not on meds.
Vitamin D level 30.
Hyponatremia -sodium 134. Suspect SIADH related to acute pain. 50 ounce daily fluid restriction ordered.
Essential hypertension -stable.
History of primary hyperparathyroidism -surgically treated.
Anxiety/depression
Overactive bladder
Osteoarthritis
Morbid obesity due to excess calories
Full code
Dispo -medically stable for discharge to rehab. Case management aware.
35 minutes spent in discharge process.
Anticipated Discharge: Today
Subjective/Interval History
-
Date of Service: January 01, 2025
Patient seen and examined. Pain is controlled, 3 out of 10 in the left leg. No other complaints.
Objective Data
-
Labs:
Laboratory Results
01/01/25
05:46
WBC 12.9 H
Hgb 7.9 L
Hct 24.7 L
Plt Count 289
Vital Signs:
Vital Signs
Temp Pulse Resp BP Pulse Ox
98.7 F 81 17 108/52 92
12/31/24 23:11 12/31/24 23:11 12/31/24 23:11 12/31/24 21:56 12/31/24 23:11
I&O
12/31/24 01/01/25 01/02/25
06:59 06:59 06:59
Intake Total 1969 / 1969 1080 / 1080
Output Total 300 / 300 100 / 100
Balance 1670 / 1670 980 / 980
Review of Systems
-
History Source: Patient
All other systems: Reviewed and negative
[2025-01-01 07:24] VITALS: BP 111/62
[2025-01-01] MEDS: ROXICODONE 10 MG PO (09:05)
[2025-01-01] MEDS: COLACE 100 MG PO (09:43)
[2025-01-01] MEDS: MIRALAX 17 GRAMS PO (09:43)
[2025-01-01] MEDS: NON-FORMULARY ITEM 75 MG PO (09:43)
[2025-01-01] MEDS: CLARITIN 10 MG PO (09:44)
[2025-01-01] MEDS: PROTONIX 40 MG PO (09:44)
[2025-01-01] MEDS: ASPIRIN 325 MG PO (09:44)
--- NOTE | 2025-01-01 10:16 | CM ---
Addendum entered by Paty Vuong 01/01/25 13:58:
Patient had a question if she needed to pay for private room, told her no, and that she will have one according to [facility].
DAGO Newman learned from RN General Manager Farm at [facility] that the scripts of pain medications were not sent to the correct Pharmacy. DAGO Newman had Furniture Repair Technician fax them to [facility]: [phone].
Original Note:
Follow up on Patient. DAGO Newman confirmed with the insurance was approved and obtain the Auth:
#[id number]
12/31 to 01/03
NRD: 01/03 to Yaneth Matthews at
This was provided to nursing gang supervisor at [facility] RN General Manager Farm: Kate
Report: [phone]

Transport was arranged for 14:30pm. Daughter came in and was informed. IMM completed.
[2025-01-01 13:52] VITALS: BP 117/58
[2025-01-01] MEDS: TYLENOL PO (13:59)
[2025-01-01] MEDS: ROXICODONE 5 MG PO (14:00)
== END 2025-01-01 14:15 | DRG 481 ==
LOC: 2 SOUTH 22:16
PROVIDERS: Nurse Practitioner; Nurse Practitioner Family; Student in an Organized Health Care Education/Training Program; ADMITTING PHYSICIAN Internal Medicine; ATTENDING PHYSICIAN Hospitalist; CONSULT PHYSICIAN Specialist; EMERGENCY PHYSICIAN Emergency Medicine; FAMILY PHYSICIAN Family Medicine
PROC: 0QSC06Z Reposition Left Lower Femur with Intramedullary Internal Fixation Device, Open Approach (ICD-10-PCS; 2024-12-28)
DX: M97.12XA Periprosthetic fracture around internal prosthetic left knee joint, initial encounter (principal); D62 Acute posthemorrhagic anemia; E87.1 Hypo-osmolality and hyponatremia; Z68.41 Body mass index [BMI] 40.0-44.9, adult; I10 Essential (primary) hypertension; E66.01 Morbid (severe) obesity due to excess calories; N32.81 Overactive bladder; E21.3 Hyperparathyroidism, unspecified; F32.A Depression, unspecified; F41.9 Anxiety disorder, unspecified; C50.911 Malignant neoplasm of unspecified site of right female breast; M81.0 Age-related osteoporosis without current pathological fracture; K59.00 Constipation, unspecified; D72.829 Elevated white blood cell count, unspecified; E78.5 Hyperlipidemia, unspecified; M17.12 Unilateral primary osteoarthritis, left knee; Z79.01 Long term (current) use of anticoagulants; Z79.899 Other long term (current) drug therapy; Z11.52 Encounter for screening for COVID-19
CPT/HCPCS: 71045; 73552; 73560; 73700; 76000; 80048; 81003; 81015; 82306; 84132; 84443; 85014; 85018; 85025; 85027; 86850; 86900; 86901; 86920; 87040; 87086; 87811; 93971; 96374; 96375; 96376; 97163; 97167; 97530; 97535; 99285

== ENCOUNTER → 2025-01-04 11:55 | Outpatient (REF) | payer OTHER, MEDICARE, SELFPAY ==
[2025-01-04 13:07] LABS: Hematocrit 29.9 % (37.0-47.0); Hemoglobin 9.1 g/dL (12.0-16.0); Mean Corp Hgb Conc. 30.4 g/dL (33.0-37.0); Mean Corpuscular Volume 91.4 fL (81.0-99.0); Nucleated Red Blood Cells % 0.2 %; Platelet Count 395 10^3/uL (130-400); Red Cell Dist. Width 16.6 % (11.5-14.5)
[2025-01-04 13:21] LABS: Blood Urea Nitrogen 9 mg/dl (7-17); Calcium 8.9 mg/dl (8.4-10.2); Carbon Dioxide 27 mmol/L (22-30); Chloride 107 mmol/L (98-107); Glucose 83 mg/dl (70-99); Potassium 4.6 mmol/L (3.5-5.1); Sodium 136 mmol/L (135-145); eGFR > 60.00
== END ==
LOC: OLABP 11:55
PROVIDERS: ATTENDING PHYSICIAN Family Medicine
DX: M80.852D Other osteoporosis with current pathological fracture, left femur, subsequent encounter for fracture with routine healing (principal); E22.2 Syndrome of inappropriate secretion of antidiuretic hormone; D62 Acute posthemorrhagic anemia; E66.01 Morbid (severe) obesity due to excess calories; E87.1 Hypo-osmolality and hyponatremia; F41.9 Anxiety disorder, unspecified; I10 Essential (primary) hypertension; M17.12 Unilateral primary osteoarthritis, left knee; N32.81 Overactive bladder; R26.2 Difficulty in walking, not elsewhere classified
CPT/HCPCS: 36415; 80048; 85025

== ENCOUNTER → 2025-01-10 10:50 | Outpatient (REF) | payer OTHER, MEDICARE, SELFPAY ==
[2025-01-10 11:15] LABS: Hematocrit 33.3 % (37.0-47.0); Hemoglobin 10.1 g/dL (12.0-16.0); Mean Corp Hgb Conc. 30.3 g/dL (33.0-37.0); Mean Corpuscular Volume 89.3 fL (81.0-99.0); Nucleated Red Blood Cells % 0 %; Platelet Count 460 10^3/uL (130-400); Red Cell Dist. Width 15.9 % (11.5-14.5)
[2025-01-10 11:27] LABS: Blood Urea Nitrogen 12 mg/dl (7-17); Calcium 9.2 mg/dl (8.4-10.2); Carbon Dioxide 25 mmol/L (22-30); Chloride 108 mmol/L (98-107); Glucose 94 mg/dl (70-99); Potassium 4.7 mmol/L (3.5-5.1); Sodium 137 mmol/L (135-145); eGFR > 60.00
== END ==
LOC: OLABP 10:50
PROVIDERS: ATTENDING PHYSICIAN Family Medicine
DX: M80.852D Other osteoporosis with current pathological fracture, left femur, subsequent encounter for fracture with routine healing (principal); D62 Acute posthemorrhagic anemia; E22.2 Syndrome of inappropriate secretion of antidiuretic hormone; E66.01 Morbid (severe) obesity due to excess calories; E87.1 Hypo-osmolality and hyponatremia; F32.A Depression, unspecified; F41.9 Anxiety disorder, unspecified; I10 Essential (primary) hypertension; M17.12 Unilateral primary osteoarthritis, left knee; N32.81 Overactive bladder; R26.2 Difficulty in walking, not elsewhere classified
CPT/HCPCS: 36415; 80048; 85025

== ENCOUNTER → 2025-01-24 10:27 | Outpatient (REF) | payer OTHER, MEDICARE, SELFPAY ==
[2025-01-24 11:13] LABS: Blood Urea Nitrogen 11 mg/dl (7-17); Calcium 10.0 mg/dl (8.4-10.2); Carbon Dioxide 25 mmol/L (22-30); Chloride 105 mmol/L (98-107); Glucose 119 mg/dl (70-99); Potassium 4.6 mmol/L (3.5-5.1); Sodium 135 mmol/L (135-145); eGFR > 60.00
== END ==
LOC: OLABP 10:27
PROVIDERS: ATTENDING PHYSICIAN Family Medicine
DX: E22.2 Syndrome of inappropriate secretion of antidiuretic hormone (principal); D62 Acute posthemorrhagic anemia; E66.01 Morbid (severe) obesity due to excess calories; F41.9 Anxiety disorder, unspecified; I10 Essential (primary) hypertension; M17.12 Unilateral primary osteoarthritis, left knee; R26.2 Difficulty in walking, not elsewhere classified
CPT/HCPCS: 36415; 80048

== ENCOUNTER → 2025-02-02 11:10 | Outpatient (REF) | payer OTHER, MEDICARE, SELFPAY ==
[2025-02-02 12:28] LABS: Hematocrit 35.3 % (37.0-47.0); Hemoglobin 10.8 g/dL (12.0-16.0); Mean Corp Hgb Conc. 30.6 g/dL (33.0-37.0); Mean Corpuscular Volume 86.5 fL (81.0-99.0); Platelet Count 306 10^3/uL (130-400); Red Cell Dist. Width 14.6 % (11.5-14.5)
[2025-02-02 13:38] LABS: Blood Urea Nitrogen 13 mg/dl (7-17); Calcium 9.1 mg/dl (8.4-10.2); Carbon Dioxide 29 mmol/L (22-30); Chloride 105 mmol/L (98-107); Glucose 93 mg/dl (70-99); Potassium 4.6 mmol/L (3.5-5.1); Sodium 137 mmol/L (135-145); eGFR > 60.00
== END ==
LOC: OLABP 11:10
PROVIDERS: ATTENDING PHYSICIAN Family Medicine
DX: M80.852D Other osteoporosis with current pathological fracture, left femur, subsequent encounter for fracture with routine healing (principal); D62 Acute posthemorrhagic anemia; E22.2 Syndrome of inappropriate secretion of antidiuretic hormone; E66.01 Morbid (severe) obesity due to excess calories; E87.1 Hypo-osmolality and hyponatremia; F32.A Depression, unspecified; F41.9 Anxiety disorder, unspecified; I10 Essential (primary) hypertension; M17.12 Unilateral primary osteoarthritis, left knee; N32.81 Overactive bladder; R26.2 Difficulty in walking, not elsewhere classified
CPT/HCPCS: 36415; 80048; 85027

== ENCOUNTER → 2025-02-24 10:39 | Outpatient (REF) | payer OTHER, MEDICARE, SELFPAY ==
[2025-02-24 11:04] LABS: Hematocrit 36.3 % (37.0-47.0); Hemoglobin 11.1 g/dL (12.0-16.0); Mean Corp Hgb Conc. 30.6 g/dL (33.0-37.0); Mean Corpuscular Volume 81.8 fL (81.0-99.0); Nucleated Red Blood Cells % 0 %; Platelet Count 340 10^3/uL (130-400); Red Cell Dist. Width 14.7 % (11.5-14.5)
[2025-02-24 11:17] LABS: ALT (SGPT) 12 U/L (0-35); AST (SGOT) 17 U/L (14-36); Albumin 3.3 g/dl (3.5-5.0); Alkaline Phosphatase 111 U/L (38-126); Blood Urea Nitrogen 11 mg/dl (7-17); Calcium 9.4 mg/dl (8.4-10.2); Carbon Dioxide 29 mmol/L (22-30); Chloride 107 mmol/L (98-107); Glucose 91 mg/dl (70-99); Potassium 4.8 mmol/L (3.5-5.1); Sodium 137 mmol/L (135-145); Total Protein 6.0 g/dl (6.3-8.2); eGFR > 60.00
[2025-02-24 11:34] LABS: Vitamin D, 25-OH*** 23.3 ng/mL (30-80)
== END ==
LOC: OLABP 10:39
PROVIDERS: ATTENDING PHYSICIAN Family Medicine
DX: M80.852D Other osteoporosis with current pathological fracture, left femur, subsequent encounter for fracture with routine healing (principal); E22.2 Syndrome of inappropriate secretion of antidiuretic hormone; D62 Acute posthemorrhagic anemia; E66.01 Morbid (severe) obesity due to excess calories; E87.1 Hypo-osmolality and hyponatremia; F32.A Depression, unspecified; F41.9 Anxiety disorder, unspecified; I10 Essential (primary) hypertension; M17.12 Unilateral primary osteoarthritis, left knee; N32.81 Overactive bladder; R26.2 Difficulty in walking, not elsewhere classified
CPT/HCPCS: 36415; 80053; 82306; 82784; 83516; 83970; 85025; 86231

== ENCOUNTER 2025-03-24 11:18 | Outpatient (RCR) | payer MEDICARE, SELFPAY ==
[2025-03-24 11:51] VITALS: BP 114/50
[2025-03-24] MEDS: EVENITY 105 MG SC ×2 (12:03)
== END 2025-03-27 09:33 | disposition home or self-care (01) ==
LOC: OID 11:18
PROVIDERS: ATTENDING PHYSICIAN Internal Medicine Endocrinology, Diabetes & Metabolism; FAMILY PHYSICIAN Family Medicine
DX: M81.0 Age-related osteoporosis without current pathological fracture (principal)
CPT/HCPCS: 96372; J3111